=== PATIENT | female | born 1940 | race Caucasian/White ===

== ENCOUNTER 2019-02-07 12:15 | Inpatient (IN) | payer OTHER ==
[~2019-02-07] VITALS: Ht 162.6 cm; Wt 87.1 kg
[2019-02-07 12:15] VITALS: BP_SYST 131
[~2019-02-07 12:15] MED LIST: AMI200 PO; ASPI-1155 PO; COR25 PO; FURO-149 PO; LEVE1000 PO; LISI10TA5 PO; MULT PO; RIVA15TA PO; SIMV20TA2 PO
--- NOTE | 2019-02-07 12:15 | NUR ---
BROUGHT IN BY ACLS [facility] [address] AND PLACED IN BED #2 AND TRIAGED. REPORT GIVEN TO ORALIA
--- NOTE | 2019-02-07 12:45 | NUR ---
Patient presented to ER C/O UNWITNESSED GROUND LEVEL FALL. Patient brought in by BLS, Patient has bruising to left face, stitches to left brow, bruise left arm, bruise left leg from previous fall last week. Daughter of pt at bedside, state she foung patient on floor at home. Daughter of patient states pt fell 2 minutes prior to her arrival, jaceies GABRIELLA. Patient of "blood thinners" as of last week per daughter of pt.
--- NOTE | 2019-02-07 12:55 | NUR ---
Report to Rachele MURDOCK
[2019-02-07] MEDS ORDERED: MORPHINE 4 MG/ML INJ. SYRINGE IVP ONE (13:00)
--- NOTE | 2019-02-07 13:45 | NUR ---
ER Dr. Greenwood at bedside examining patient.
--- NOTE | 2019-02-07 13:50 | NUR ---
Patient to CT via gurney with radiology staff
--- NOTE | 2019-02-07 13:56 | NUR ---
Blanket Washer Note Was called by ED nursing. Patient's daughter wanted to see a social worker delinquency prevention. CRANE MANAGER went to ED within 10 minutes. Patient was being admitted and patient's daughter left. Will remain available.
--- NOTE | 2019-02-07 13:58 | NUR ---
SW at bedside per family request.
--- NOTE | 2019-02-07 14:20 | NUR ---
Patient to ER bed [address]
[2019-02-07 14:50] LABS: BASOPHILS # (AUTO) 0.1 K/uL (0.0-0.2); EOSINOPHILS # (AUTO) 0.1 K/uL (0.0-0.4); LYMPHOCYTES # (AUTO) 1.9 K/uL (1.0-5.5); LYMPHOCYTES % (AUTO) 14.2 % (20.5-51.5); RED BLOOD CELL COUNT(AUTO) 3.94 MIL/uL (4.2-6.2)
[2019-02-07 14:58] LABS: BASOPHILS % (AUTO) 0.6 % (0.0-2.0); EOSINOPHILS % (AUTO) 0.6 % (0.0-4.0); HEMATOCRIT 35.4 % (36-48); HEMOGLOBIN 11.7 g/dL (12.0-16.0); MEAN CORPUSCULAR HEMOGLOBIN 30 pg (27-31); MEAN CORPUSCULAR HGB CONC 33 % (32-36); MEAN CORPUSCULAR VOLUME 90 fL (79.0-98.0); MONOCYTES # (AUTO) 1.5 K/uL (0.0-1.0); MONOCYTES % (AUTO) 11.2 % (1.7-9.3); NEUTROPHILS # (AUTO) 9.6 K/uL (1.8-7.7); NEUTROPHILS % (AUTO) 73.4 % (40.0-70.0); PLATELET COUNT (AUTO) 296 K/uL (130-430); RED CELL DISTRIBUTION WIDTH 15.6 % (9.0-15.0); WHITE BLOOD COUNT (AUTO) 13.1 K/uL (4.8-10.8)
[2019-02-07 15:02] LABS: ANION GAP 22 (5-15); CALCIUM 9.8 mg/dL (8.4-11.0); CHLORIDE 100 mmol/L (98-107); CREATININE 1.08 mg/dL (0.55-1.30); GLUCOSE 120 mg/dL (70-99); POTASSIUM 4.9 mmol/L (3.5-5.1); SODIUM SERUM 134 mmol/L (136-145); UREA NITROGEN, BLOOD 17 mg/dL (8-21)
[2019-02-07 15:07] LABS: ALANINE AMINOTRANSFERASE 56 U/L (12-78); ALBUMIN 3.3 g/dL (3.4-4.8); ASPARTATE AMINOTRANSFERASE 106 U/L (10-37); TOTAL BILIRUBIN 1.3 mg/dL (0.0-1.0)
--- NOTE | 2019-02-07 15:30 | NUR ---
Patient sitting up in bed, awake.
--- NOTE | 2019-02-07 16:43 | NUR ---
Patient sleeping in [facility].
[2019-02-07] MEDS ORDERED: COR12.5 PO (18:17)
--- NOTE | 2019-02-07 18:17 | NUR ---
Medication reconciliation completed with information provided by Patient. Any prior medication reconciliation on file was reviewed and corrected.
--- NOTE | 2019-02-07 18:35 | NUR ---
Patient will be admitted to care of DR. OLGUIN. Admitted to TELE unit. Will go to room 105A. Belongings list completed. Summary report printed. Report given at bedside to [employer] dial mounter to tele 105a via ACLS protocol. Licensed nurse present. IV present no signs or symptoms of infiltration.
--- NOTE | 2019-02-07 18:35 | NUR ---
ADMISSION NOTE Received patient from ER via sheree, received report from Sveta MURDOCK. Patient admitted with diagnosis of CVA. Patient oriented to hospital routine, call light, toileting and safety-patient verbalized understanding.
[2019-02-07 18:54] VITALS: BP_SYST 123
--- NOTE | 2019-02-07 19:07 | NUR ---
CONSULTATION PAGED/CALLED Reason for Consultation: CVA Person Who was Notified: SARAH Consulting Physician: GIRSEL RICHMOND Woodworking Bench Carpenter Specialty: NEURO Ordering Physician: DR. OLGUIN
--- NOTE | 2019-02-07 19:43 | NUR ---
PAGED PAGING SHARIF NAIR FOR ORDERS, SPOKE WITH MILLI
--- NOTE | 2019-02-07 19:45 | NUR ---
FAMILY CALLED : PTS DAUGHTER JACOB BRADFORD CALLED TO VERIFY THE HOME MEDICATION , NOT ATTENDED THE CALL ,LEFT MESSAGE .
--- NOTE | 2019-02-07 19:50 | NUR ---
INITIAL NOTES: PT IS ALERT AND ORIENTED X 3, DENIED ANY CHEST PAIN OR SOB , VITALS ARE STABLE ; ASSESSMENT DONE ; NOTICED LEFT EYEBROW WITH 6 STITCHES INTACT ,CLEAN ,AND DRY NO DRAINAGE , OPEN TO AIR , LEFT SIDE OF THE FACE WITH PURPLE / RED DISCOLORATION AND SMALL DRY SCAB VANI THE CHEEK BONE ; NECK NOTED WITH BRUISES , LEFT HAND ,AC , R ARM , RIGHT KNEE AND LOWE R LEG NOTICED WITH PURPLE AND RED DISCOLORATION , RIGHT KNEE AND RIGHT ARM NOTICED WITH SMALL DRY SCABS , NO DRAINAGE NOTICED FROM ANY OF THESE AREAS , PT HAS PAIN WHILE MOVING HER BODY AND ARMS , WILL NOTIFY MD ; IV TO THE R AC 22 G, NO S/S OF ANY INFILTRATION NOTED ; PTS MARTY LEGS WITH WEAKNESS BUT NO C/O NUMBNESS OR TINGLING , ABLE TO ABDUCT AND ADDUCT ALL EXTREMITIES WELL .STRENGTH IS EQUAL IN BOTH SIDE , WEAKNESS DUE TO FALL AND PAIN , NO FACIAL DROOPING NOTICED AT THIS TIME ; BED IN LOW AND LOCK POSITION , CALL MCGUIRE IN REACH , ENCOURAGED PT TO CALL FOR ANY HELP ; WILL CONTINUE TO MONITOR PT . Addendum: 02/08/19 at 0045 by Nighat Hicks RN PICTURES ARE TAKEN .
--- NOTE | 2019-02-07 19:56 | NUR ---
MD CALLED BACK : DR OLGUIN CALLED BACK , REQUESTED FOR DIET ORDER , MD ORDERED NPO ,SWALLOW EVEAL IN THE MORNING AND D5NS AT 70 ML/HR . MD STATED HE WILL DO THE MED REC , BEFORE ASKING PAIN MEDICATION / TYLENOL ( PER PT SHE TAKES TYLENOL EXTRA STRENGTH AT NIGHT ) , MD HANG UP THE PHONE , WILL CALL MD AGAIN
--- NOTE | 2019-02-07 19:58 | NUR ---
PAGED PAGED DR. OLGUIN FOR ORDERS, SPOKE WITH MILLI
--- NOTE | 2019-02-07 20:08 | NUR ---
CALLED BACK: DR OLGUIN CALLED BACK INFORMED THAT PT IS ASKING FOR TYLENOL EXTRA STRENGTH , ORDERED TYLENOL 650 MG PO Q6HRS PRN FOR MILD PAIN AND FEVER , ALSO INFORMED THAT ORDERED D5 NS AT 70 CC/HR AND PT HAS CARDIOMEGALY , MD ORDERED TO CONTINUE THE SAME ORDER. CHANGED DIET ORDER TO NPO EXCEPT MEDS . NO OTHER PAIN MEDICATION ORDERED AT THIS TIME . STATED HE WILL DO THE MED REC . Addendum: 02/07/19 at 2014 by Nighat Hicks RN MADE AWARE THAT PT IS ON AMIODARONE AND COREG
[2019-02-07] MEDS ORDERED: AMIODARONE HCL 200 MG TABLET PO SCH (20:30)
[2019-02-07] MEDS: D5NS 1,000 ML IV SCH (20:47)
[2019-02-07 20:49] VITALS: BP_SYST 141
--- NOTE | 2019-02-07 20:50 | NUR ---
MEDICATION: DUE MEDS GIVEN PER ORDER , EDUCATED PT ON COREG ; NO QUESTIONS AT THIS TIME ; ALL NEEDS ATTENDED ; WILL CONTINUE TO MONITOR PT . Addendum: 02/08/19 at 0221 by Nighat Hicks RN SWALLOW CHECK : PROVIDED 1/2 SPOON OF APPLE SAUCE PT IS ABLE TO SWALLOW WELL , NO S/S OF ANY ASPIRATION , PROVIDED FEW MORE SPOONS , PT SWALLOWED IT WELL WITHOUT ANY DIFFICULTY . DUE MEDS GIVEN PER ORDER WITH WATER , PT SWALLOWED WELL . NO S/S OF ANY ASPIRATION NOTED AT THIS TIME .
[2019-02-07] MEDS ORDERED: CARVEDILOL 12.5 MG TABLET (COREG) PO SCH (21:00)
[2019-02-07] MEDS: ACETAMINOPHEN 325 MG TABLET PO PRN (22:36)
--- NOTE | 2019-02-07 22:36 | NUR ---
PAIN; PT C/O PAIN WHILE MOVING , TYLENOL PROVIDED PER ORDER , PROVIDED BED [place] FOR THE PT , PT IS ONLY ABLE TO VOID FEW DROPS . WILL TRY AGAIN LATER .
[2019-02-08] VITALS (8 sets, daily range): BP systolic 109–145
--- NOTE | 2019-02-08 00:05 | NUR ---
RN NOTES: PT IS UNABLE TO VOID AGAIN IN A BEDPAN , WITH THE ASSIST OF ANOTHER 2 RNS ASSISTED PT TO BSC , PT IS ABLE TO VOID WELL , MARY COLOR URINE . PT CLEANED ; ASSISTED PT BACK TO BED ; WHILE MOVING PT C/O PAIN , TYLENOL GIVEN EARLIER PER MD ORDER . WILL WAIT FOR FEW MIN , IF NOT SUBSIDED WILL CALL MD AGAIN FOR STRONGER PAIN MEDICATION .
--- NOTE | 2019-02-08 01:03 | NUR ---
RN ROUNDS: PT IS SLEEPING WITH EYES CLOSED , NOT IN ANY ACUTE DISTRESS;RESPIRATION IS EVEN AND NON LABORED , WILL CONTINUE TO MONITOR PT .
--- NOTE | 2019-02-08 03:00 | NUR ---
RN NOTES: PT IS SLEEPING , COMFORTABLE , NO S/S OF ANY DISTRESS NOTED ; RESPIRATION IS EVEN AND NON LABORED ; WILL CONTINUE TO MONITOR PT .
--- NOTE | 2019-02-08 04:20 | NUR ---
MRSA COLLECTED: PT WAS ADMITTED AT [facility] LAST WEEK , PT IS AWAKE , MRSA COLLECTED AND SENT TO LAB , PT DENIED ANY PAIN AT THIS TIME .
--- NOTE | 2019-02-08 05:19 | NUR ---
CONSULTATION PAGED/CALLED Reason for Consultation: SWALLOW EVAL Person Who was Notified: CHASTITY ([phone]) Ordering Physician: DR. OLGUIN
[2019-02-08] MEDS: ACETAMINOPHEN 325 MG TABLET PO PRN ×2 (05:41→13:49)
--- NOTE | 2019-02-08 05:45 | NUR ---
PAIN: PT C/O PAIN TO HER LEFT SHOULDER NECK AND HEADACHE , MEDICATED PT WITH TYLENOL PER DR OLGUIN ORDERED . WILL NOTIFY MD IF THIS PAIN MEDICATION DIDNT HELP .PT SWALLOWED MEDICATION WELL . NO COUGHING , NO S/S OF ANY ASPIRATION NOTED .
--- NOTE | 2019-02-08 06:03 | NUR ---
PAGED PAGING DR. OLGUIN REGARDING ORDERS, SPOKE WITH GLORY
--- NOTE | 2019-02-08 06:03 | NUR ---
RN NOTES: ASSISTED PT TO BSC , PT VOIDED ONLY 50 ML ; BLADDER SCAN DONE AND NOTICED 500 ML POST VOID ; WILL NOTIFY MD .
--- NOTE | 2019-02-08 06:11 | NUR ---
CALLED BACK; DR OLGUIN CALLED BACK , MD NOTIFIED OF POST VOID URINE AMOUNT VIA BLADDER SCAN OF 500 ML ; ALSO NOTIFIED MD THAT PT VOIDED ONLY 150 ML THE WHOLE SHIFT ; MD ORDERED TO INSERT MAY CATHETER .
--- NOTE | 2019-02-08 06:20 | NUR ---
MAY CATH: #[id number] May catheter with 10cc bulb inserted with use of sterile technique. Bulb inflated with 10 cc sterile water. Immediate return of 380cc of mild liza color urine noted. Bedside drainage bag placed below level of bladder. Urine sample collected and sent to lab . Pt tolerated procedure well. AZAM Ocampo , assisted with procedure .
--- NOTE | 2019-02-08 07:00 | NUR ---
CLOSING NOTES; PT IS COMFORTABLE , SLEEPING , RESPIRATION IS EVEN AND NON LABORED ; MAY IS DRAINING WELL TO GRAVITY ; IV FLUID IS INFUSING WELL , NO S/S OF ANY INFILTRATION NOTED ; ALL NEEDS MET ; WILL CONTINUE TO MONITOR AND WILL ENDORSE TO NEXT SHIFT NURSE .
[2019-02-08 07:08] LABS: BILIRUBIN,URINE NEGATIVE (NEGATIVE); BLOOD, URINE NEGATIVE (NEGATIVE); CLARITY/URINE CLEAR (CLEAR); COLOR,URINE YELLOW (YELLOW); GLUCOSE,URINE NEGATIVE (NEGATIVE); KETONES,URINE TRACE (NEGATIVE); LEUKOCYTE ESTERASE ,URINE NEGATIVE (NEGATIVE); NITRITE, URINE NEGATIVE (NEGATIVE); PROTEIN URINE NEGATIVE (NEGATIVE)
--- NOTE | 2019-02-08 08:00 | NUR ---
ASSUMPTION OF CARE: RECEIVED PT A/A/OX4, DX:INADEQUATE PERFUSION, R/T CVA, VSS, NO C/O PAIN OR DISCOMFORT, ORIENTED X 4, TO NAME, TIME, PLACE AND EVENT, BREATH SOUNDS ARE CLEAR, BREATHING UNLABORED, IV SITE INTACT, PATENT, NO REDNESS OR SWELLING, MULTIPLE BRUISING OVER LARGE SURFACE AREA OF THE BODY, LACERATION NOTED TO LEFT EYE LID WITH SUTURES DRY AND INTACT, ORIENTED TO UNIT, CALL LIGHT PLACED WITHIN REACH, SZ PADDED PLACED ON SIDE RAILS, ROOM CLOSE TO NURSES STATION, WILL CON'T WITH POC.
[2019-02-08] MEDS: SIMVASTATIN 20 MG TABLET PO SCH (08:21)
[2019-02-08] MEDS: CARVEDILOL 12.5 MG TABLET (COREG) PO SCH ×2 (08:21→17:43)
[2019-02-08] MEDS: AMIODARONE HCL 200 MG TABLET PO SCH ×2 (08:21→20:28)
--- NOTE | 2019-02-08 08:30 | NUR ---
VISIT: AT BEDSIDE FOR ASSESSMENT OF PT, NEW ORDERS GIVEN, WILL CON'T TO MONITOR AND ASSESS.
--- NOTE | 2019-02-08 08:59 | NUR ---
CONSULTATION PAGED/CALLED Reason for Consultation: ICH Person Who was Notified: SPOKE TO OLIVIA FROM OFFICE. Consulting Physician: Nib Inspector Specialty: CARDIO Ordering Physician:
--- NOTE | 2019-02-08 09:00 | NUR ---
REFLECTOR DRILLER AND DEBURRER: MORNING MEDS GIVEN, PER ORDERED BY Murali, TOLERATED WELL, WILL CON'T TO MONITOR AND ASSESS.
--- NOTE | 2019-02-08 09:23 | NUR ---
CONSULTATION PAGED/CALLED Reason for Consultation: CHEST PAIN Person Who was Notified: SPOKE TO DIALLO FROM OFFICE. Consulting Physician: Morphologist Specialty: CARDIO Ordering Physician:
[2019-02-08 09:28] LABS: ANION GAP 5 (5-15); CALCIUM 8.8 mg/dL (8.4-11.0); CHLORIDE 101 mmol/L (98-107); CREATININE 0.93 mg/dL (0.55-1.30); GLUCOSE 121 mg/dL (70-99); SODIUM SERUM 132 mmol/L (136-145); UREA NITROGEN, BLOOD 19 mg/dL (8-21)
--- NOTE | 2019-02-08 09:51 | NUR ---
Nutrition Update Anup Scale 17 noted. Pt admitted for CVA. Diet: NPO BMI: 33 kg/m2 RD to follow per nutrition care standards.
--- NOTE | 2019-02-08 10:25 | NUR ---
Motion Picture Set Worker: Referral to see pt. Elizabeth is requesting social services technician. CHAPERON met with pt. who was alert and orientated. Pt. was able to participate in this interview. She is hard of hearing so it was better to speak to her on her left side. Pt. stated she was comfortable and did not need anything. Pt was in the middle of trying to get her PCP, Dr. Street's phone number from her address book because she stated she had an apt. today at 2 or 3. CHAPERON offered to call for pt. CHAPERON asked pt. if she has ever had hearing aids. Pt. stated she has a follow up apt. Pt. stated she just moved into her apt. 4 months ago and has probably done too much unpacking. She stated she fell and went to [facility]. Upon discharge she came back home and when she was going to sit in her chair, she lost strenght in her legs and fell. She was unable to get up. Her neighbor came to check on her and found her on the floor. Pt. does not know how long she was there and stated , "Maybe 15 minutes on the floor". Pt. stated her goal once D/C was to return to her home where she lives alone. CHAPERON stated her concern was for pt. and falling and no one helping her. Pt. stated is was ok for CHAPERON to speak to her daughter once she comes for a visit today. Rn. Ralph will call CHAPERON once daughter arrives. Rn. Ralhp asked pt. if she has ever had seizures. Pt. stated she had a seizure in the past. Rn placed padding around the bed. CHAPERON called Dr. Street's office and spoke to Tamiko who informed CHAPERON that pts.' apt. is actually scheduled for . They will keep the apt. in the event the pt. can make this. CHAPERON thanked Tamiko and will communicate this to the pt. and daughter. Addendum: 02/08/19 at 1708 by Aisha Barker CHAPERON Motion Picture Set Worker follow up CHAPERON did not get any notification that daughter had come to visit pt. CHAPERON called but had to leave a message for daughter letting her know CHAPERON had met with her mom. CHAPERON also stated there is a administrator social welfare property preservation specialist on sat and a case mngr. on Sat. should daughter have any questions. CHAPERON also stated she was able to cancel pt. with her PCP as requested.
[2019-02-08] MEDS ORDERED: APIX5TAB4 PO ×2 (13:35→13:37)
[2019-02-08] MEDS ORDERED: AMI200 PO (13:36)
[2019-02-08] MEDS ORDERED: AMI200 (13:37)
--- NOTE | 2019-02-08 14:45 | NUR ---
CT SCAN: PT OFF UNIT TO RADIOLOGY FOR ORDERED CT HEAD.
--- NOTE | 2019-02-08 15:49 | NUR ---
S.T. SWALLOW EVAL SWALLOW EVAL COMPLETED. PT PRESENTS W/ FUNCTIONAL OROPHARYNGEAL SWALLOW W/ NO S/S OF ASPIRATION. REC: MECH SOFT CHOPPED DIET. THIN LIQUIDS OK. NURSE ORALIA NOTIFIED. G8996 CI G8997 CI G8998 CI NOMS LEVEL 6
[2019-02-08] MEDS: D5NS 1,000 ML IV SCH (17:40)
--- NOTE | 2019-02-08 19:40 | NUR ---
OPENING NOTES Received patient awake and oriented, no signs of acute respiratory distress observed. Patient has IV Right hand 22g, patent, dressings c/d/i. Patient states that she has no pain at this time. Patient oriented to use of call light and bed alarm. Nagel catheter draining per gravity, no kinks noted. Call light within reach, bed alarm on, and bed at lowest position. Will continue to monitor.
--- NOTE | 2019-02-08 22:20 | NUR ---
Patient resting in bed, seizure precautions in place, no acute respiratory distress observed. Perineal care, bed bath and armstrong catheter care provided. Safety precautions in place. Will continue to monitor.
--- NOTE | 2019-02-09 00:01 | NUR ---
Patient resting in bed, no acute respiratory distress observed. Seizure precautions and safety precautions in place. Will continue to monitor.
[2019-02-09] MEDS: D5NS 1,000 ML IV SCH (01:28)
[2019-02-09] MEDS: ACETAMINOPHEN 325 MG TABLET PO PRN ×2 (01:36→08:13)
--- NOTE | 2019-02-09 02:07 | NUR ---
Pain medication administered PO, patient tolerated with no s/s of difficulty swallowing. No acute respiratory distress observed. IV fluids changed, IV dressings c/d/i. No kinks in armstrogn catheter, draining to gravity. Safety precautions in place. Will continue to monitor and assess for pain.
--- NOTE | 2019-02-09 04:05 | NUR ---
Reoriented patient to the room, fixed up her gown and sheets, and repositioned patient. No acute respiratory distress observed. Nagel catheter is draining with gravity, clear liza urine noted. No kinks noted. Bed alarm on, bed at lowest position, and call light within reach. Will continue to monitor.
--- NOTE | 2019-02-09 06:18 | NUR ---
CLOSING NOTES Patient is resting in bed, no acute respiratory distress observed. IV on Right hand 22g, running D5NS @ 70 ml/hr per MD order, patent, dressings c/d/i. IV on Right AC 22g SL, patent, dressings c/d/i. Nagel catheter draining to gravity, no kinks noted. Seizure precautions in place. Call light within reach, bed alarm on, and bed at lowest position. All needs met throughout shift. Will endorse care to oncoming shift.
[2019-02-09 07:50] VITALS: BP_SYST 133
--- NOTE | 2019-02-09 08:00 | NUR ---
Note Pt sitting up in bed eating her breakfast. Tele unit attached and intact at this time. IV in right AC intact and patent at this time. IV in right hand intact and patent infusing IVF's well. No SOB/resp distress or pain/discomfort noted at this time. No needs noted at this time. Pt has padded side rails at this time. Call light within reach.
[2019-02-09] MEDS: AMIODARONE HCL 200 MG TABLET PO SCH ×2 (08:12→20:55)
[2019-02-09] MEDS: SIMVASTATIN 20 MG TABLET PO SCH (08:13)
[2019-02-09] MEDS: CARVEDILOL 12.5 MG TABLET (COREG) PO SCH ×2 (08:13→17:24)
[2019-02-09] MEDS: LISINOPRIL 5 MG TABLET PO SCH (08:13)
--- NOTE | 2019-02-09 10:10 | NUR ---
Note Pt was given hygiene care for incontinent bowel movement. Pt has Nagel catheter all shift for retention of urine. Pt is having EEG study at bedside at this time. Call light within reach. Pt has been next to nurses' station all shift for close observation and for needs/care.
[2019-02-09 11:09] VITALS: BP_SYST 123
[2019-02-09 12:00] VITALS: BP_SYST 117
[2019-02-09] MEDS ORDERED: levETIRAcetam 500 MG TABLET PO ONE (12:00)
[2019-02-09 13:03] LABS: BASOPHILS # (AUTO) 0.1 K/uL (0.0-0.2); BASOPHILS % (AUTO) 1.1 % (0.0-2.0); EOSINOPHILS # (AUTO) 0.3 K/uL (0.0-0.4); EOSINOPHILS % (AUTO) 2.7 % (0.0-4.0); HEMATOCRIT 30.5 % (36-48); HEMOGLOBIN 10.2 g/dL (12.0-16.0); LYMPHOCYTES # (AUTO) 1.4 K/uL (1.0-5.5); LYMPHOCYTES % (AUTO) 13.8 % (20.5-51.5); MEAN CORPUSCULAR HEMOGLOBIN 30 pg (27-31); MEAN CORPUSCULAR HGB CONC 34 % (32-36); MEAN CORPUSCULAR VOLUME 89 fL (79.0-98.0); MONOCYTES # (AUTO) 1.2 K/uL (0.0-1.0); MONOCYTES % (AUTO) 11.6 % (1.7-9.3); NEUTROPHILS # (AUTO) 7.2 K/uL (1.8-7.7); NEUTROPHILS % (AUTO) 70.8 % (40.0-70.0); PLATELET COUNT (AUTO) 271 K/uL (130-430); RED BLOOD CELL COUNT(AUTO) 3.42 MIL/uL (4.2-6.2); RED CELL DISTRIBUTION WIDTH 15.8 % (9.0-15.0); WHITE BLOOD COUNT (AUTO) 10.1 K/uL (4.8-10.8)
[2019-02-09 13:14] LABS: ANION GAP 6 (5-15); CALCIUM 8.8 mg/dL (8.4-11.0); CHLORIDE 100 mmol/L (98-107); CREATININE 0.83 mg/dL (0.55-1.30); GLUCOSE 118 mg/dL (70-99); POTASSIUM 4.2 mmol/L (3.5-5.1); SODIUM SERUM 132 mmol/L (136-145); UREA NITROGEN, BLOOD 18 mg/dL (8-21)
[2019-02-09 13:16] LABS: INR 1.2 (0.8-1.2); PROTHROMBIN TIME 11.6 SECS (9.5-12.5)
[2019-02-09 13:20] LABS: ALANINE AMINOTRANSFERASE 284 U/L (12-78); ALBUMIN 2.5 g/dL (3.4-4.8); ASPARTATE AMINOTRANSFERASE 81 U/L (10-37); TOTAL BILIRUBIN 0.6 mg/dL (0.0-1.0)
--- NOTE | 2019-02-09 13:40 | NUR ---
Note Pt was seen and assessed at bedside by Dr. Vizcarra at noon. Questions/concerns were answered at this time. Orders written and carried out. Pt resting in bed after finishing her lunch at this time. No needs noted. Call light within reach. Tele unit and Nagel catheter intact and attached at this time.
[2019-02-09 15:23] VITALS: BP_SYST 125
--- NOTE | 2019-02-09 16:40 | NUR ---
NOTE Dr Anne on the floor assessing pt at bedside at this time. Pt resting in bed with padded side rails. Call light within reach.
--- NOTE | 2019-02-09 18:30 | NUR ---
Note Pt assisted in sitting up in bed to eat her dinner. IV in right hand and right AC intact and patent - both IV's are saline locked at this time. No SOB/resp distress or severe pain/discomfort noted at this time. Incision with stitches above left eyebrow intact - no bleeding/drainage/odor noted all shift. Tele unit attached and intact all shift. Pt was checked on q1' and PRN all shift for needs and care. Nagel catheter intact and draining well all shift. Call light within reach. No needs noted at this time. Pt next to nurses' station all shift for close observation for needs and care.
--- NOTE | 2019-02-09 19:45 | NUR ---
OPENING NOTES Received patient resting, alert. No acute respiratory distress observed. Nagel catheter draining to gravity, no kinks noted. IV R hand 22g, patent, dressings c/d/i. Call light within reach, bed alarm on, and bed at lowest position. Will continue to monitor
[2019-02-09 20:00] VITALS: BP_SYST 91
[2019-02-09] MEDS: levETIRAcetam 500 MG TABLET PO SCH (20:54)
--- NOTE | 2019-02-09 22:10 | NUR ---
Patient is resting in bed. No acute respiratory distress observed. Seizure and safety precautions in place. Will continue to monitor.
--- NOTE | 2019-02-09 22:45 | NUR ---
IV dc'd IV dc'd R.AC catheter tip intact. No active bleeding noted. Pt tolerated well.
--- NOTE | 2019-02-10 00:06 | NUR ---
Patient is resting, eyes closed. Rise and fall of chest noted, no acute respiratory distress observed. Seizure and safety precautions in place. Will continue to monitor.
[2019-02-10 01:35] VITALS: BP_SYST 135
--- NOTE | 2019-02-10 02:10 | NUR ---
Patient is resting, eyes closed. No acute respiratory distress observed. Nagel catheter is draining to gravity, no kinks noted. Safety and seizure precautions in place. Will continue to monitor.
--- NOTE | 2019-02-10 04:21 | NUR ---
Patient is asleep, eyes closed. No s/s of acute respiratory distress observed. Will continue to monitor.
--- NOTE | 2019-02-10 07:00 | NUR ---
CLOSING NOTES Patient is asleep, eyes closed. No s/s of acute respiratory distress observed. Nagel catheter draining by gravity, no kinks noted. IV at R hand 22g SL, patent, dressings c/d/i. Patient repositioned. Seizure precautions in place. Bed alarm on, bed at lowest position and call light within reach. All needs met throughout shift. Will endorse care to oncoming shift.
[2019-02-10 07:43] VITALS: BP_SYST 115
--- NOTE | 2019-02-10 08:00 | NUR ---
Note Pt was assisted in sitting position to eat her breakfast. Tele unit attached and intact at this time. Nagel catheter intact and draining. No SOB/resp distress or chest pain/discomfort noted at this time. IV in right hand intact and patent at this time. No needs noted at this time. Call light within reach.
[2019-02-10] MEDS: SIMVASTATIN 20 MG TABLET PO SCH (08:48)
[2019-02-10] MEDS: LISINOPRIL 5 MG TABLET PO SCH (08:49)
[2019-02-10] MEDS: AMIODARONE HCL 200 MG TABLET PO SCH ×2 (08:49→21:00)
[2019-02-10] MEDS: levETIRAcetam 500 MG TABLET PO SCH ×2 (08:49→21:13)
[2019-02-10] MEDS: CARVEDILOL 12.5 MG TABLET (COREG) PO SCH ×2 (08:49→17:04)
--- NOTE | 2019-02-10 11:10 | NUR ---
Note Pt resting in bed. No needs noted at this time. Call light within reach. Pt stable.
[2019-02-10 11:17] VITALS: BP_SYST 106
--- NOTE | 2019-02-10 11:50 | NUR ---
Note Dr Alvares at pt's bedside assessing pt and writing orders at this time.
--- NOTE | 2019-02-10 14:40 | NUR ---
Note Pt resting in bed at this time. Pt went down to CT dept via bed at 1255pm and returned to room at [address] head/brain without contrast. Pt's appetite for lunch was poor. No needs noted at this time. Call light within reach.
[2019-02-10 15:23] VITALS: BP_SYST 117
[2019-02-10] MEDS: ACETAMINOPHEN 325 MG TABLET PO PRN ×2 (17:04→23:24)
--- NOTE | 2019-02-10 18:40 | NUR ---
Note Pt resting in bed. No SOB/resp distress or chest pain/discomfort noted at this time. Tele unit attached and intact at this time. Pt was checked on q1' and PRN all shift for needs and care. IV in right hand intact and patent at this time. No needs noted. Nagel catheter intact and draining. Call light within reach. Pt next to nurses' station for close observation for needs and care.
--- NOTE | 2019-02-10 19:35 | NUR ---
OPENING NOTES Patient is resting in bed, alert, no acute respiratory distress observed. Patient states that she had cold sweats earlier. Temperature taken, and temperature was within normal limits. IV R hand 22 g, Saline lock, patent, dressings c/d/i. Oriented patient to the room and plan of care. Bed alarm on, bed at lowest position, and call light within reach. Will continue to monitor.
[2019-02-10 20:00] VITALS: BP_SYST 92
[2019-02-10 21:58] VITALS: BP_SYST 92
--- NOTE | 2019-02-10 22:00 | NUR ---
AMIODARONE held due to low blood pressure. Documented Vital signs. Patient in bed, alert and verbalizes needs. resting comfortably. Nagel catheter draining by gravity, bag not touching the floor, no kinks, clear liza urine. Seizure and safety precautions in place. Will continue to monitor.
[2019-02-11] VITALS: BP_SYST 97
--- NOTE | 2019-02-11 00:15 | NUR ---
Patient is awake, no signs of respiratory distress observed. Tylenol administered for pain. Tolerated well. NPO order in place for abdominal US. Seizure pads in place, safety precautions in place. Will continue to monitor.
--- NOTE | 2019-02-11 02:10 | NUR ---
Patient is resting, eyes closed. Rise and fall of chest observed. Safety and seizure precautions in place. Will continue to monitor.
--- NOTE | 2019-02-11 04:20 | NUR ---
Patient is resting, asleep. No acute respiratory distress observed. Nagel catheter draining by gravity, no kinks, clear liza urine. Seizure and safety precautions in place. Will continue to monitor.
--- NOTE | 2019-02-11 06:16 | NUR ---
CLOSING NOTES Patient resting in bed. No signs of acute respiratory distress observed. Nagel catheter draining per gravity, clear,liza urine, no kinks, bag off of the floor. IV site, Right Hand 22 g, Saline lock, dressings c/d/i. Seizure precautions in place. Call light within reach, bed alarm on, and bed at lowest position. All needs met throughout shift. Will endorse care to oncoming shift.
--- NOTE | 2019-02-11 07:09 | NUR ---
Nutrition Update Anup Scale 15 noted. Pt admitted for Cerebrovascular Accident Diet: Mechanical Soft BMI: 33 kg/m2 RD to follow per nutrition care standards.
[2019-02-11 07:31] LABS: ALANINE AMINOTRANSFERASE 146 U/L (12-78); ALBUMIN 2.4 g/dL (3.4-4.8); ANION GAP 4 (5-15); ASPARTATE AMINOTRANSFERASE 18 U/L (10-37); CALCIUM 9.3 mg/dL (8.4-11.0); CHLORIDE 96 mmol/L (98-107); CREATININE 1.04 mg/dL (0.55-1.30); GLUCOSE 89 mg/dL (70-99); POTASSIUM 4.2 mmol/L (3.5-5.1); SODIUM SERUM 127 mmol/L (136-145); TOTAL BILIRUBIN 0.8 mg/dL (0.0-1.0); UREA NITROGEN, BLOOD 22 mg/dL (8-21)
--- NOTE | 2019-02-11 07:31 | NUR ---
OPENING NOTE Patient resting in the bed with eyes closed. No acute distress. Skin warm and dry to touch. SL intact to right hand, no redness, no swelling, patent. F/C intact, drain gravity with yellow urine. Safety measure maintained. Bed locked in low position, side rails up, bed alarm on. Call light within reached. Will continue to monitor.
--- NOTE | 2019-02-11 07:40 | NUR ---
Initial Note-Pt resting in bed. Breathing even and un-labored. Pt receiving breathing treatment for RT. Side rails padded, room close to nursing station. Bed in low position, bed alarm on, call light within reach. Addendum: 02/11/19 at 0756 by Jesusita Hoover RN DESREGARD ABOVE NOTE, WRONG PATIENT.
[2019-02-11 07:58] LABS: BASOPHILS # (AUTO) 0.1 K/uL (0.0-0.2); BASOPHILS % (AUTO) 0.6 % (0.0-2.0); EOSINOPHILS # (AUTO) 0.3 K/uL (0.0-0.4); EOSINOPHILS % (AUTO) 2.6 % (0.0-4.0); HEMATOCRIT 30.1 % (36-48); HEMOGLOBIN 10.2 g/dL (12.0-16.0); LYMPHOCYTES # (AUTO) 1.4 K/uL (1.0-5.5); LYMPHOCYTES % (AUTO) 11.8 % (20.5-51.5); MEAN CORPUSCULAR HEMOGLOBIN 30 pg (27-31); MEAN CORPUSCULAR HGB CONC 34 % (32-36); MEAN CORPUSCULAR VOLUME 88 fL (79.0-98.0); MONOCYTES # (AUTO) 1.3 K/uL (0.0-1.0); MONOCYTES % (AUTO) 10.5 % (1.7-9.3); NEUTROPHILS % (AUTO) 74.5 % (40.0-70.0); PLATELET COUNT (AUTO) 292 K/uL (130-430); RED BLOOD CELL COUNT(AUTO) 3.41 MIL/uL (4.2-6.2); RED CELL DISTRIBUTION WIDTH 15.6 % (9.0-15.0)
[2019-02-11 08:00] VITALS: BP_SYST 109
[2019-02-11 08:02] LABS: WHITE BLOOD COUNT (AUTO) 12.1 K/uL (4.8-10.8)
--- NOTE | 2019-02-11 09:50 | NUR ---
SEEN AND EXAMINED BY MANISHA ARRIETA Reported to Dr. Rubi, patient's Nd=[id number] this morning.
[2019-02-11] MEDS: levETIRAcetam 500 MG TABLET PO SCH (10:01)
[2019-02-11] MEDS: LISINOPRIL 5 MG TABLET PO SCH (10:01)
[2019-02-11] MEDS: SIMVASTATIN 20 MG TABLET PO SCH (10:01)
[2019-02-11] MEDS: AMIODARONE HCL 200 MG TABLET PO SCH (10:02)
[2019-02-11] MEDS: CARVEDILOL 12.5 MG TABLET (COREG) PO SCH (10:02)
--- NOTE | 2019-02-11 10:19 | NUR ---
US OF ABDOMEN DOING AT BEDSIDE AT THIS TIME.
--- NOTE | 2019-02-11 10:35 | NUR ---
DC PLANNING: CM SPOKE WITH PATIENT'S SON (ADRIANA) @ AND DISCUSSED DC PLANNING TO SNF. PATIENT'S SON STATED HE HAD SPOKE WITH DR. OLGUIN AND DISCUSSED SNF PLACEMENT. PT'S SON ALSO AGREED TO [facility] RECOMMENDED BY . CM/DCP WILL FAX INQUIRE TO SNF.
--- NOTE | 2019-02-11 10:43 | NUR ---
MAY CATHETER DISCOUNTED Removed May catheter as ordered, procedure tolerated well. Patient denied of pain/discomfort. No acute distress noted. Safety measure maintained. Call light within touch. Bed locked in low position, padded side rails up, bed alarm on. Continue to monitor.
[2019-02-11 12:00] VITALS: BP_SYST 112
--- NOTE | 2019-02-11 12:15 | NUR ---
Discharge Planning: DCP faxed pt referral to [facility] (f [phone] p [phone]) DCP to follow up. Addendum: 02/11/19 at 1309 by Mima Marcelino DP [facility] (f [phone] p [phone]) accepted pt RM 21A, transportation arranged [facility] ([phone]) 4:00pm P/U. Nurse made aware patient packet taken to nurse station.
--- NOTE | 2019-02-11 12:55 | NUR ---
ROUND Patient resting in the bed. No acute distress. Respiration even and unlabored. Safety measure maintained. Call light within reached. Bed locked in low position, side rails up, bed alarm on. Continue to monitor.
--- NOTE | 2019-02-11 13:00 | NUR ---
Pick Remover: follow up to make contact with daughter. CERTIFIED GENETIC COUNSELOR was finally able to speak to daughter, Flory Paniagua who was friendly and kind. She was stating her mom is being dishcarged. Pt will be going to [facility] however daughter was unsure as she did not know the rating of facility and had not had a chance to speak to anyone. Daughter stated she was coming to [facility] today. CERTIFIED GENETIC COUNSELOR can give her a [facility] brochure. CERTIFIED GENETIC COUNSELOR also inquired about a durable power of atty. Daughter stated her mom did not have one. Daughter will call CERTIFIED GENETIC COUNSELOR when she arrives at [facility] today at 4 or 4:30pm. CERTIFIED GENETIC COUNSELOR spoke to D/C environmental planner who stated pt. is leaving today and will be in bed 21A. CERTIFIED GENETIC COUNSELOR called family to notify that pt. will be leaving today at 4pm and CERTIFIED GENETIC COUNSELOR will leave paperwork with pt. in her room. CERTIFIED GENETIC COUNSELOR will remain available as needed.
--- NOTE | 2019-02-11 14:00 | NUR ---
TURNED AND REPOSITIONED PATIENT Patient no acute distress. Turned and repositioned at this time, tolerated well. No c/o pain. Skin warm and dry to touch. Patient voided after D/C Nagel cath. Good pericare provided. Safety measure maintained. Call light within reached. Bed locked in low position, padded side rails up, bed alarm on. Continue to monitor.
[2019-02-11 15:08] VITALS: BP_SYST 100
[2019-02-11 15:10] VITALS: BP_SYST 100
--- NOTE | 2019-02-11 15:12 | NUR ---
REPORTED GIVEN TO MATHIEU DE JESUS IN [place]
--- NOTE | 2019-02-11 16:25 | NUR ---
ROUND Patient resting in the bed. No acute distress. Respiration even and unlabored. Safety measure maintained. Call light within reached. Bed locked in low position, side rails up, bed alarm on. Continue to monitor and waited ambulance to milk pickup driver the patient.
--- NOTE | 2019-02-11 18:30 | NUR ---
PT TRANSFERRED Report given to MATHIEU Macias at 1512. Transfer packet with Transfer Orders and Medication Reconciliation form given to EMT with report. Exitcare provided. [facility] ID band removed, replaced with ID band with pt's name and . IV catheter removed, intact and dressing applied, no active bleeding. All belongings sent with patient. Patient left floor via gurney escorted by EMT in no distress.
== END 2019-02-11 18:30 | DRG 85 ==
LOC: SED 12:15 → STU 17:58
PROVIDERS: ADMIT Internal Medicine Hospice and Palliative Medicine; ATTEND Internal Medicine Hospice and Palliative Medicine
DX: S06.300A Unspecified focal traumatic brain injury without loss of consciousness, initial encounter (principal); G93.41 Metabolic encephalopathy; E87.1 Hypo-osmolality and hyponatremia; I42.0 Dilated cardiomyopathy; I50.42 Chronic combined systolic (congestive) and diastolic (congestive) heart failure; E44.1 Mild protein-calorie malnutrition; E87.2 Acidosis; M19.90 Unspecified osteoarthritis, unspecified site; I11.0 Hypertensive heart disease with heart failure; I34.0 Nonrheumatic mitral (valve) insufficiency; I48.0 Paroxysmal atrial fibrillation; R29.6 Repeated falls; W18.39XA Other fall on same level, initial encounter; Z60.2 Problems related to living alone; S80.01XA Contusion of right knee, initial encounter; Z79.01 Long term (current) use of anticoagulants; Z79.899 Other long term (current) drug therapy; Z85.3 Personal history of malignant neoplasm of breast; Z90.12 Acquired absence of left breast and nipple; Z92.3 Personal history of irradiation; Z95.810 Presence of automatic (implantable) cardiac defibrillator; Y93.89 Activity, other specified; Y92.89 Other specified places as the place of occurrence of the external cause; Y99.8 Other external cause status; Z79.82 Long term (current) use of aspirin; Z92.21 Personal history of antineoplastic chemotherapy; Z68.33 Body mass index [BMI] 33.0-33.9, adult
CPT/HCPCS: 36415; 70450-TC; 71045; 72125-TC; 72131; 76700-TC; 80048; 80053; 81003; 83735-TC; 84484; 85025; 85610-TC; 85730-TC; 87081; 92610-GN; 93005; 95816; 97116-GP; 97530-GP; 99285; G0378; J2270; J7042

== ENCOUNTER 2019-05-20 22:11 | Inpatient (IN) | payer OTHER ==
[~2019-05-20] VITALS: Ht 162.6 cm; Wt 73.1 kg
[2019-05-20 22:11] VITALS: BP_SYST 92
[2019-05-20] MEDS ORDERED: NACL 0.9% 1,000 ML IV ONE ×2 (22:45→23:15)
--- NOTE | 2019-05-20 22:45 | NUR ---
ER Dr. Mcneal at bedside examining patient.
--- NOTE | 2019-05-20 22:50 | NUR ---
Pt presents to ER BIB EMS from [facility] with c/o low blood pressure. Per facility, pt fell out of wheelchair earlier this evening with no LOC. Per facility, when they were assessing her after fall, they noticed low blood pressure. Upon arrival to ER, pts blood pressure 63/35. Pt c/o neck pain and nausea. No vomiting noted. Pt states pain is 4/10. Per EMS, 20 g started in L AC.
[2019-05-20] MEDS ORDERED: ONDANSETRON HCL 4 MG/2 ML VIAL IVP ONE (23:00)
--- NOTE | 2019-05-20 23:14 | NUR ---
radiology at bedside
[2019-05-20 23:43] LABS: ANION GAP 9 (5-15); CALCIUM 8.3 mg/dL (8.4-11.0); CHLORIDE 106 mmol/L (98-107); GLUCOSE 140 mg/dL (70-99); POTASSIUM 4.3 mmol/L (3.5-5.1); SODIUM SERUM 139 mmol/L (136-145); UREA NITROGEN, BLOOD 20 mg/dL (8-21)
[2019-05-20 23:45] LABS: RED BLOOD CELL COUNT(AUTO) 4.05 MIL/uL (4.2-6.2)
[2019-05-20 23:51] LABS: ALANINE AMINOTRANSFERASE 47 U/L (12-78); ALBUMIN 2.1 g/dL (3.4-4.8); ASPARTATE AMINOTRANSFERASE 29 U/L (10-37); TOTAL BILIRUBIN 0.6 mg/dL (0.0-1.0)
[2019-05-20 23:59] LABS: BASOPHILS # (AUTO) 0.1 K/uL (0.0-0.2); BASOPHILS % (AUTO) 0.5 % (0.0-2.0); EOSINOPHILS % (AUTO) 0.2 % (0.0-4.0); HEMATOCRIT 36.9 % (36-48); HEMOGLOBIN 11.8 g/dL (12.0-16.0); LYMPHOCYTES # (AUTO) 1.4 K/uL (1.0-5.5); LYMPHOCYTES % (AUTO) 9.8 % (20.5-51.5); MEAN CORPUSCULAR HEMOGLOBIN 29 pg (27-31); MEAN CORPUSCULAR HGB CONC 32 % (32-36); MEAN CORPUSCULAR VOLUME 91 fL (79.0-98.0); MONOCYTES % (AUTO) 6.9 % (1.7-9.3); NEUTROPHILS # (AUTO) 11.9 K/uL (1.8-7.7); NEUTROPHILS % (AUTO) 82.6 % (40.0-70.0); PLATELET COUNT (AUTO) 243 K/uL (130-430); RED CELL DISTRIBUTION WIDTH 17.7 % (9.0-15.0); WHITE BLOOD COUNT (AUTO) 14.4 K/uL (4.8-10.8)
[2019-05-21] MEDS ORDERED: ENOXAPARIN SODIUM 80 MG/0.8 ML SYRINGE SUBCUT ONE (00:30)
[2019-05-21] MEDS ORDERED: ASPIRIN 81 MG TABLET(ECOTRIN) PO ONE (00:30)
--- NOTE | 2019-05-21 02:03 | NUR ---
Pt states "I am cold." Pt given warm blanket.
--- NOTE | 2019-05-21 03:20 | NUR ---
Patient resting quietly. No acute distress noted. Vital signs within normal range.
[2019-05-21] MEDS ORDERED: LISI5TAB PO (05:13)
[2019-05-21] MEDS ORDERED: ASCO500T20 PO (05:13)
[2019-05-21] MEDS ORDERED: LEVE500T53 PO (05:14)
[2019-05-21] MEDS ORDERED: MULT-1117 PO (05:14)
[2019-05-21] MEDS ORDERED: AMI200 PO (05:15)
[2019-05-21] MEDS ORDERED: CARV6.2554 PO (05:15)
[2019-05-21] MEDS ORDERED: SIMV20TA2 PO (05:17)
[2019-05-21] MEDS ORDERED: ONDA4TAB5 PO (05:17)
[2019-05-21] MEDS ORDERED: ACET-2634 PO (05:19)
[2019-05-21] MEDS ORDERED: DOCU-144 PO (05:21)
[2019-05-21] MEDS ORDERED: MOM PO (05:22)
[2019-05-21] MEDS ORDERED: PROP10DR2 EACH EYE (05:27)
[2019-05-21] MEDS ORDERED: MINE3.5O OP (05:28)
--- NOTE | 2019-05-21 05:28 | NUR ---
Medication reconciliation completed with information provided by [facility]. Any prior medication reconciliation on file was reviewed and corrected.
--- NOTE | 2019-05-21 05:48 | NUR ---
Patient will be admitted to care of Greyson. Admitted to Telemetry unit. Will go to room 106A. Belongings list completed. Complete and up to date summary report printed. SBAR report to be given at bedside with opportunity for questions.
--- NOTE | 2019-05-21 05:49 | NUR ---
Transfer to Telemetry room 106A via ACLS protocol. Licensed nurse present. IV present no signs or symptoms of infiltration.
--- NOTE | 2019-05-21 05:59 | NUR ---
CONSULTATION PAGED/CALLED Reason for Consultation: ELEV TROPONIN Person Who was Notified: ORALIA Consulting Physician: DR. MORRISON Ordering Physician: DR. OLGUIN
--- NOTE | 2019-05-21 06:00 | NUR ---
ADMISSION NOTE Received patient from ER via sheree, received report from nursery hand. Patient admitted with diagnosis of elevated troponin. Patient oriented to hospital routine, call light, toileting and safety-patient verbalized understanding.
[2019-05-21] MEDS ORDERED: ACETAMINOPHEN 500 MG TABLET PO PRN (07:30)
[2019-05-21 07:52] VITALS: BP_SYST 117
[2019-05-21 08:22] VITALS: BP_SYST 120
--- NOTE | 2019-05-21 08:25 | NUR ---
INITIAL ROUNDS Received pt AAOx3, no s/s resp distress, no c/o chest pain or chest pressure. Plan of care for the day reviewed with pt-pt verbalized her understanding. Noted slight pink abrasion to right forehead and area around pt's eye. Pt c/o mild pain with movement to the back of her head/neck area on her right side-pt declined Tylenol and ice packs at this time. Pt's pillow repositioned for comfort. pain management, skin and safety discussed-teach back done. Side rails up x3, bed alarm on and room near nursing station for safety. Call light within reach.
[2019-05-21] MEDS: levETIRAcetam 500 MG TABLET PO SCH ×2 (10:30→20:37)
[2019-05-21] MEDS: AMIODARONE HCL 200 MG TABLET PO SCH ×3 (10:31→20:39)
[2019-05-21] MEDS: LISINOPRIL 5 MG TABLET PO SCH (10:31)
[2019-05-21] MEDS: CARVEDILOL 6.25 MG TABLET (COREG) PO SCH ×2 (10:32→20:39)
--- NOTE | 2019-05-21 10:45 | NUR ---
ROUNDS Pt resting quietly in bed with no s/s resp distress, no c/o chest pain or chest pressure, c/o mild pain to back of her head/neck area-pt declined pain medication and ice packs-repositioned pillows for comfort. Pt seen by Dr. Tom earlier-ECHO ordered and completed-EF 49%. Needs met, call light within reach.
[2019-05-21 11:25] VITALS: BP_SYST 121
[2019-05-21 15:05] VITALS: BP_SYST 99
--- NOTE | 2019-05-21 15:45 | NUR ---
ROUNDS/SKIN Pt's daughter here and stated that what appears to be an abrasion around pt's right eye is actually a scar from another fall. Pt sitting up in bed visiting with her family with no further c/o pain or discomfort. All precautions remain in place. call light within reach.
--- NOTE | 2019-05-21 18:55 | NUR ---
CLOSING NOTE Pt resting quietly in bed with no s/s resp distress, no c/o pain or discomfort. Needs met, call light within reach.
[2019-05-21 19:45] VITALS: BP_SYST 107
--- NOTE | 2019-05-21 19:45 | NUR ---
INITIAL NOTE AT INITIAL ASSESSMENT, PATIENT IS RESTING IN BED, STABLE, NO SIGNS OF RESPIRATORY DISTRESS. PLAN OF CARE FOR THE EVENING IS COMMUNICATED TO THE PATIENT. PATIENT VERBALIZES NO PAIN AT THIS TIME. PATIENT IS DEMONSTRATES CORRECT USAGE OF CALL LIGHT AT THIS TIME. FALL, SAFETY, AND PRECAUTIONS WILL BE TAKEN THROUGHOUT THE SHIFT. BED IS LOCKED, ALARMED, AND AT THE LOWEST LEVEL. Addendum: 05/23/19 at 0740 by Jenny Olivier RN PATIENT REFUSES SEIZURE PRECAUTION PADS DESPITE EDUCATIONAL EFFORTS.
[2019-05-21] MEDS: SIMVASTATIN 20 MG TABLET PO SCH (20:37)
--- NOTE | 2019-05-21 21:45 | NUR ---
PATIENT ASSISTED TO BEDSIDE COMMODE PATIENT ASSISTED TO BEDSIDE COMMODE FOR BOWEL MOVEMENT. HYGIENE CARE IS PROVIDED AT THIS TIME, FRESH LINENS PROVIDED. PATIENT TOLERATED WELL. SHE IS REPOSITIONED FOR COMFORT. PATIENT IS STABLE, NO SIGNS OF RESPIRATORY DISTRESS. BED IS LOCKED, ALARMED, AND AT THE LOWEST LEVEL.
[2019-05-22] VITALS: BP_SYST 110
--- NOTE | 2019-05-22 06:10 | NUR ---
CLOSING NOTE AT THIS TIME, PATIENT IS RESTING IN BED, IS STABLE, NO SIGNS OF RESPIRATORY DISTRESS. BED IS LOCKED, ALARMED, AND AT THE LOWEST LEVEL. FALL AND SAFETY PRECAUTIONS WILL BE TAKEN THROUGHOUT THE SHIFT. BED IS LOCKED, ALARMED, AND AT THE LOWEST LEVEL. WILL CONTINUE TO MONITOR UNTIL SHIFT REPORT IS GIVEN AT BEDSIDE TO AM NURSE.
--- NOTE | 2019-05-22 07:30 | NUR ---
Opening Notes Patient received lying in bed, eyes closed but easily awaken with verbal and tactile stimuli, denies any pain or discomfort, able to verbalize needs and concerns. Respiration even and unlabored. IV saline lock in place and intact, Call light within the reach. Fall precaution observed, bed alarm on, bed at lowest position. Will continue to monitor.
[2019-05-22 07:54] LABS: BASOPHILS % (AUTO) 0.6 % (0.0-2.0); EOSINOPHILS # (AUTO) 0.2 K/uL (0.0-0.4); EOSINOPHILS % (AUTO) 2.7 % (0.0-4.0); HEMATOCRIT 36.9 % (36-48); HEMOGLOBIN 12.1 g/dL (12.0-16.0); LYMPHOCYTES # (AUTO) 2.2 K/uL (1.0-5.5); MEAN CORPUSCULAR HEMOGLOBIN 29 pg (27-31); MEAN CORPUSCULAR HGB CONC 33 % (32-36); MEAN CORPUSCULAR VOLUME 88 fL (79.0-98.0); MONOCYTES # (AUTO) 0.8 K/uL (0.0-1.0); NEUTROPHILS # (AUTO) 4.7 K/uL (1.8-7.7); NEUTROPHILS % (AUTO) 58.7 % (40.0-70.0); PLATELET COUNT (AUTO) 235 K/uL (130-430); RED BLOOD CELL COUNT(AUTO) 4.18 MIL/uL (4.2-6.2); RED CELL DISTRIBUTION WIDTH 17.1 % (9.0-15.0)
[2019-05-22 08:00] VITALS: BP_SYST 109
[2019-05-22 08:10] LABS: CHOLESTEROL 105 mg/dL (<200); HDL CHOLESTEROL 37 mg/dL (>55); LDL CHOLESTEROL 51 mg/dL (<100); TRIGLYCERIDES 100 mg/dL (30-150)
--- NOTE | 2019-05-22 09:00 | NUR ---
Poor appetite Patient had a poor appetite for breakfast, offered peaches, able to consume 100% and able to finish her orange juice, denies any pain or discomfort at this time. Call light within the reach.
[2019-05-22 09:02] LABS: ALANINE AMINOTRANSFERASE 61 U/L (12-78); ALBUMIN 2.3 g/dL (3.4-4.8); ANION GAP 6 (5-15); ASPARTATE AMINOTRANSFERASE 36 U/L (10-37); CALCIUM 9.5 mg/dL (8.4-11.0); CHLORIDE 105 mmol/L (98-107); CREATININE 0.77 mg/dL (0.55-1.30); GLUCOSE 73 mg/dL (70-99); POTASSIUM 4.2 mmol/L (3.5-5.1); SODIUM SERUM 138 mmol/L (136-145); THYROID STIMULATING HORMONE 10.02 uIu/mL (0.36-3.74); TOTAL BILIRUBIN 0.4 mg/dL (0.0-1.0); UREA NITROGEN, BLOOD 13 mg/dL (8-21)
[2019-05-22] MEDS: levETIRAcetam 500 MG TABLET PO SCH ×2 (09:15→20:34)
[2019-05-22] MEDS: AMIODARONE HCL 200 MG TABLET PO SCH ×2 (09:16→20:35)
[2019-05-22] MEDS: CARVEDILOL 6.25 MG TABLET (COREG) PO SCH ×2 (09:16→20:34)
[2019-05-22] MEDS: LISINOPRIL 5 MG TABLET PO SCH (09:17)
--- NOTE | 2019-05-22 09:54 | NUR ---
Nutrition Update Anup Scale 16 noted. Pt admitted for elevated troponin Diet: 2gmNa BMI: 27.6 kg/m2 RD to follow per nutrition care standards.
[2019-05-22] MEDS ORDERED: ONDANSETRON HCL 4 MG/2 ML VIAL IVP PRN (10:00)
[2019-05-22] MEDS ORDERED: NS 500 ML IV ONE (10:00)
--- NOTE | 2019-05-22 10:10 | NUR ---
Dr. Harris Rounds Seen and examined by MD with new order for arterial Doppler to bilateral lower extremities for poor circulation, noted and carried out.
[2019-05-22 11:18] VITALS: BP_SYST 107
--- NOTE | 2019-05-22 12:20 | NUR ---
RN ROUNDS Patient currently eating lunch, denies any pain or discomfort at this time. Denies any pain or discomfort. Respiration even and unlabored. Call light within the reach.
--- NOTE | 2019-05-22 14:20 | NUR ---
RN ROUNDS Patient asleep, respiration even and unlabored, no moaning or grimacing noted. Call light within the reach.
[2019-05-22 15:28] VITALS: BP_SYST 117
--- NOTE | 2019-05-22 16:30 | NUR ---
RN ROUNDS Patient asleep, respiration even and unlabored, no moaning or grimacing noted. Call light within the reach. IVF infusing well.
--- NOTE | 2019-05-22 18:45 | NUR ---
Closing Notes Patient alert, awake and verbally responsive. Denies any pain or discomfort. Respiration even and unlabored. IVF infusing well. Fall precaution observed. Bed at lowest position, bed alarm on. Call light within the reach.
[2019-05-22 19:45] VITALS: BP_SYST 126
--- NOTE | 2019-05-22 19:45 | NUR ---
INITIAL NOTE / SEIZURE PADS REFUSAL AT INITIAL ASSESSMENT, PATIENT IS RESTING IN BED, STABLE, NO SIGNS OF RESPIRATORY DISTRESS. PLAN OF CARE FOR THE EVENING IS COMMUNICATED TO THE PATIENT. PATIENT VERBALIZES NO PAIN AT THIS TIME. PATIENT IS DEMONSTRATES CORRECT USAGE OF CALL LIGHT AT THIS TIME. FALL, SAFETY, AND PRECAUTIONS WILL BE TAKEN THROUGHOUT THE SHIFT. BED IS LOCKED, ALARMED, AND AT THE LOWEST LEVEL. PATIENT REFUSES SEIZURE PRECAUTION PADS DESPITE EDUCATIONAL EFFORTS.
[2019-05-22] MEDS: SIMVASTATIN 20 MG TABLET PO SCH (20:34)
[2019-05-23] VITALS: BP_SYST 104
--- NOTE | 2019-05-23 06:05 | NUR ---
CLOSING NOTE NO CHANGES THROUGHOUT THE NIGHT, PATIENT WAS MORE ALERT TONIGHT. AT THIS TIME, PATIENT IS RESTING IN BED, IS STABLE, NO SIGNS OF RESPIRATORY DISTRESS. BED IS LOCKED, ALARMED, AND AT THE LOWEST LEVEL. FALL AND SAFETY PRECAUTIONS WILL BE TAKEN THROUGHOUT THE SHIFT. BED IS LOCKED, ALARMED, AND AT THE LOWEST LEVEL. WILL CONTINUE TO MONITOR UNTIL SHIFT REPORT IS GIVEN AT BEDSIDE TO AM NURSE.
[2019-05-23] MEDS: LEVOTHYROXINE SODIUM 0.025 MG TABLET PO SCH (06:27)
--- NOTE | 2019-05-23 07:15 | NUR ---
Opening Notes Patient received lying on bed, alert, awake and verbally responsive, respiration even and unlabored. Denies any pain or discomfort, able to verbalize needs and concerns. IV saline lock in place and intact, Call light within the reach. Fall precaution observed, bed alarm on, bed at lowest position. Will continue to monitor.
[2019-05-23 08:00] VITALS: BP_SYST 105
[2019-05-23] MEDS: levETIRAcetam 500 MG TABLET PO SCH ×2 (09:16→20:31)
[2019-05-23] MEDS: AMIODARONE HCL 200 MG TABLET PO SCH ×2 (09:16→20:30)
[2019-05-23] MEDS: CARVEDILOL 6.25 MG TABLET (COREG) PO SCH ×2 (09:17→20:31)
[2019-05-23] MEDS: LISINOPRIL 5 MG TABLET PO SCH (09:17)
[2019-05-23] MEDS ORDERED: CEPH250C PO (09:37)
[2019-05-23] MEDS ORDERED: LEVO25TA2 PO (09:37)
--- NOTE | 2019-05-23 09:45 | NUR ---
Dr. Harris Rounds Seen and examined by MD, will follow-up for any new orders.
--- NOTE | 2019-05-23 10:30 | NUR ---
Dr. Tom Rounds Seen and examined by MD, agreed to be discharged today, but wants to await for PT eval. PT notified,
--- NOTE | 2019-05-23 12:06 | NUR ---
Called Dr. Harris re:D/C order Called and spoke with MD regarding PT recommendation for patient to be discharge to SNF, per MD Patient may be discharge to [facility], will notify renal case manager.
[2019-05-23 12:25] VITALS: BP_SYST 113
--- NOTE | 2019-05-23 13:19 | NUR ---
Discharge Planning [facility] received the order for discharge to SNF. Met with patient at bedside who is somewhat confused. She requested I phone her daughter, Flory. Left a voicemail for Flory Paniagua, , who called back. She stated patient had recently been at [facility] for over 100 days. She would like to speak with the doctor prior to discharge. Forwarded the call to patient's nurse, Yuliana. Will remain available. Addendum: 05/23/19 at 1347 by Svetlana Burgos [facility] William HARDEN spoke with patient's daughter in law, Flory. She is agreeable for patient's information to be faxed to [facility]. Patient may require senior living placement. [facility] faxed patient's information to [place], p [phone] f [phone].
--- NOTE | 2019-05-23 15:00 | NUR ---
RN ROUNDS Patient remain to be alert, awake and verbally responsive, denies any pain or discomfort at this time. Able to verbalize needs and concerns. Call light within the reach.
--- NOTE | 2019-05-23 15:29 | NUR ---
DC Planning: Per Stacy at [facility], declined taking pt dt not one on one staff for the pt. This due to concerning pt is high risk for fall and confusion. Addendum: 05/23/19 at 1605 by William Cohen RN >> Updated Flory with son/POA permission that there is no accepting [facility] so[facility]. Flory concerns that the pt may not be able to go back to [facility]. 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 She asked for assistance finding one in [place], , [employer] or [facility]. >> CM contacted Eliot Teague/affiliated with [facility] . S/w Nayan for the referral inquiry. Svetlana is to fax the request for financial /clinical review. CM to f/u.
--- NOTE | 2019-05-23 16:06 | NUR ---
DC to SNF: Pt is accepted at [facility]. Per Nayan assigned pt to room 39A , bed available tomorrow after 7 am. mariluz Ruthr made aware, she agreed with the transfer and POC. Per Lilia at Dr. Lula Harris #[phone] asking cm to notify his associate/October # [phone]. CM s/w October,D.O , he agreed with the transfer to [facility] as well. >> MATHIEU Bridges Made aware and to arrange the ambulance tonight for am transfer. DC package delivered to [facility] unit.
[2019-05-23 16:15] VITALS: BP_SYST 116
--- NOTE | 2019-05-23 17:30 | NUR ---
RN ROUNDS Patient resting well, denies any pain or discomfort at this time. Respiration even and unlabored. Call light within the reach,
--- NOTE | 2019-05-23 18:56 | NUR ---
Closing Notes Patient remain to be alert, awake and verbally responsive. IV saline lock in place. Denies any pain or discomfort. Respiration even and unlabored. Patient will be discharge in am.Fall precaution observed. Bed at lowest position, bed alarm on. Call light within the reach. Will endorse to the next shift regarding arranging transportation in am.
--- NOTE | 2019-05-23 19:50 | NUR ---
PM SHIFT ASSESSMENT Received patient lying in bed, aox3, vital signs stable, c/o of nausea, will medicate shortly, denies any other pain at this time, plan of care provided to patient, verbalized understanding, compliant, repositioned for comfort, oriented to use call light for nurse assistance, safety measures in place, will monitor.
[2019-05-23 20:00] VITALS: BP_SYST 123
[2019-05-23] MEDS: SIMVASTATIN 20 MG TABLET PO SCH (20:30)
--- NOTE | 2019-05-23 20:45 | NUR ---
MED PASS Patient awake, due medications administered, aspiration precautions maintained, educated on use and side effects of medications. Patient verbalized understanding.
--- NOTE | 2019-05-23 22:29 | NUR ---
RN ROUNDS Patient awake, denies any pain or discomfort at this time, hygiene care provided, repositioned and turned with pillow support, call light within reach, and safety measures in place.
--- NOTE | 2019-05-24 00:27 | NUR ---
RN ROUNDS Patient resting quietly in bed, vital signs stable, fall and safety measures in place, call light remains within reach, will monitor.
[2019-05-24 00:54] VITALS: BP_SYST 103
--- NOTE | 2019-05-24 02:07 | NUR ---
RN ROUNDS Patient resting quietly in bed, breathing is even and unlabored, fall and safety measures in place, call light remains within reach, will monitor.
--- NOTE | 2019-05-24 04:03 | NUR ---
Called [facility], s/w Shanna. ETA [id number]
--- NOTE | 2019-05-24 04:14 | NUR ---
RN ROUNDS Patient sleeping, respirations even and unlabored, repositioned and turned, fall and safety measures in place, call light remains within reach, will monitor.
[2019-05-24] MEDS: LEVOTHYROXINE SODIUM 0.025 MG TABLET PO SCH (06:08)
--- NOTE | 2019-05-24 06:29 | NUR ---
CLOSING NOTE Patient sleeping, respirations even and unlabored, on room air, due medications administered, hygiene care provided, repositioned and turned, fall and safety measures maintained through out the shift, call light remains within reach, will monitor until report given to am nurse.
[2019-05-24 07:55] VITALS: BP_SYST 100
--- NOTE | 2019-05-24 08:00 | NUR ---
Initial notes- In bed, awake and oriented. Denies any chest pain or shortness of breath. Able to feed self. Uses bedside commode but patient is still weak. Safety precaution observed. Call light in reach. Bed alarm on. will monitor.
[2019-05-24 08:09] VITALS: BP_SYST 100
[2019-05-24] MEDS: CARVEDILOL 6.25 MG TABLET (COREG) PO SCH (08:39)
[2019-05-24] MEDS: LISINOPRIL 5 MG TABLET PO SCH (08:39)
[2019-05-24] MEDS: levETIRAcetam 500 MG TABLET PO SCH (08:40)
[2019-05-24] MEDS: AMIODARONE HCL 200 MG TABLET PO SCH (08:40)
--- NOTE | 2019-05-24 10:00 | NUR ---
notes- report given to Kayla MURDOCK to [facility].
--- NOTE | 2019-05-24 10:26 | NUR ---
Notes- In bed, resting denies any pain or shortness of breath. Waiting for ambulance picking table worker
--- NOTE | 2019-05-24 10:47 | NUR ---
discharge- D/c patient to [facility]. Denies any pain or discomfort. D/C packet given to ambulance staff and belongings. IVL removed. No distress noted.
--- NOTE | 2019-05-24 14:12 | NUR ---
PHYSICAL THERAPY CO-SIGN The Physical Therapy Progress Notes documented by Senior Principal Process Engineer have been reviewed. Reviewed/Co-Signed by: Bryan Key PT Documentation Done by: PATI HORNER PTA Addendum: 05/24/19 at 1414 by Bryan Key PT Amended: Links added.
--- NOTE | 2019-05-24 14:13 | NUR ---
PHYSICAL THERAPY CO-SIGN The Physical Therapy Progress Notes documented by Mri Assistant have been reviewed. Reviewed/Co-Signed by: Bryan Key PT Documentation Done by: PATI HORNER PTA Addendum: 05/24/19 at 1414 by Bryan Key PT Amended: Links added.
== END 2019-05-24 10:47 | DRG 280 ==
LOC: SED 22:11 → STU 05-21 05:22
PROVIDERS: ADMIT Internal Medicine Hospice and Palliative Medicine; ATTEND Internal Medicine Hospice and Palliative Medicine
DX: I21.4 Non-ST elevation (NSTEMI) myocardial infarction (principal); E43 Unspecified severe protein-calorie malnutrition; I42.0 Dilated cardiomyopathy; I48.0 Paroxysmal atrial fibrillation; F03.90 Unspecified dementia, unspecified severity, without behavioral disturbance, psychotic disturbance, mood disturbance, and anxiety; G40.909 Epilepsy, unspecified, not intractable, without status epilepticus; I25.10 Atherosclerotic heart disease of native coronary artery without angina pectoris; I34.0 Nonrheumatic mitral (valve) insufficiency; R29.6 Repeated falls; F10.10 Alcohol abuse, uncomplicated; R26.9 Unspecified abnormalities of gait and mobility; I50.9 Heart failure, unspecified; I95.9 Hypotension, unspecified; I11.0 Hypertensive heart disease with heart failure; E03.9 Hypothyroidism, unspecified; I73.9 Peripheral vascular disease, unspecified; Z79.01 Long term (current) use of anticoagulants; Z85.3 Personal history of malignant neoplasm of breast; Z86.73 Personal history of transient ischemic attack (TIA), and cerebral infarction without residual deficits; Z90.12 Acquired absence of left breast and nipple; Z95.810 Presence of automatic (implantable) cardiac defibrillator; Z79.899 Other long term (current) drug therapy; Z79.82 Long term (current) use of aspirin; Z90.49 Acquired absence of other specified parts of digestive tract; Z98.1 Arthrodesis status
CPT/HCPCS: 36415; 70450-TC; 71045; 80053; 80061; 82550-TC; 83880; 84439; 84443-TC; 84480; 84484; 85025; 85379; 93005; 93306; 93923; 96372; 96374; 97110-GP; 97116-GP; 97530-GP; 99285; G0378; J1650; J2405; J7040

== ENCOUNTER 2019-06-11 16:49 | Inpatient (IN) | payer OTHER ==
[~2019-06-11] VITALS: Ht 162.6 cm; Wt 71.7 kg
[~2019-06-11 16:49] MED LIST changes: +ACET-2634 PO; +ASCO500T20 PO; -ASPI-1155 PO; +CARV6.2554 PO; +CEPH250C PO; -COR25 PO; +DOCU-144 PO; -FURO-149 PO; -LEVE1000 PO; +LEVE500T53 PO; +LEVO25TA2 PO; -LISI10TA5 PO; +LISI5TAB PO; +MINE3.5O OP; +MOM PO; -MULT PO; +MULT-1117 PO; +ONDA4TAB5 PO; +PROP10DR2 EACH EYE; -RIVA15TA PO
[2019-06-11 16:50] VITALS: BP_SYST 79
--- NOTE | 2019-06-11 16:50 | NUR ---
BROUGHT IN BY [facility], PLACED IN BED #6 AND TRIAGED. REPORT GIVEN TO KARINE
--- NOTE | 2019-06-11 16:51 | NUR ---
Patient is lethargic, states she has been hypotensive for days. Patient denies any pain or other symptoms. Just that she feels tired.
--- NOTE | 2019-06-11 16:52 | NUR ---
ER Dr. Siu at bedside examining patient.
[2019-06-11] MEDS ORDERED: NACL 0.9% 1,000 ML IV ONE ×2 (17:15→18:45)
[2019-06-11 17:44] LABS: BASOPHILS # (AUTO) 0.1 K/uL (0.0-0.2); BASOPHILS % (AUTO) 0.6 % (0.0-2.0); EOSINOPHILS # (AUTO) 0.1 K/uL (0.0-0.4); EOSINOPHILS % (AUTO) 0.9 % (0.0-4.0); HEMATOCRIT 40.2 % (36-48); HEMOGLOBIN 13.1 g/dL (12.0-16.0); LYMPHOCYTES # (AUTO) 1.2 K/uL (1.0-5.5); LYMPHOCYTES % (AUTO) 11.9 % (20.5-51.5); MEAN CORPUSCULAR HEMOGLOBIN 29 pg (27-31); MEAN CORPUSCULAR HGB CONC 33 % (32-36); MEAN CORPUSCULAR VOLUME 87 fL (79.0-98.0); MONOCYTES # (AUTO) 0.7 K/uL (0.0-1.0); MONOCYTES % (AUTO) 7.3 % (1.7-9.3); NEUTROPHILS % (AUTO) 79.3 % (40.0-70.0); PLATELET COUNT (AUTO) 224 K/uL (130-430); RED CELL DISTRIBUTION WIDTH 17.3 % (9.0-15.0); WHITE BLOOD COUNT (AUTO) 10.1 K/uL (4.8-10.8)
[2019-06-11 18:00] LABS: ANION GAP 5 (5-15); CALCIUM 9.8 mg/dL (8.4-11.0); CHLORIDE 104 mmol/L (98-107); CREATININE 0.81 mg/dL (0.55-1.30); GLUCOSE 138 mg/dL (70-99); POTASSIUM 3.8 mmol/L (3.5-5.1); SODIUM SERUM 137 mmol/L (136-145); UREA NITROGEN, BLOOD 31 mg/dL (8-21)
[2019-06-11 18:09] LABS: ALANINE AMINOTRANSFERASE 227 U/L (12-78); ALBUMIN 2.4 g/dL (3.4-4.8); ASPARTATE AMINOTRANSFERASE 124 U/L (10-37); TOTAL BILIRUBIN 0.4 mg/dL (0.0-1.0)
[2019-06-11] MEDS ORDERED: cefTRIAXone 1 GM IVPB PREMIX 50 ML IV ONE (18:45)
--- NOTE | 2019-06-11 18:47 | NUR ---
Patient will be admitted to care of Dr. Domingo. Admitted to Telemetry unit. Will go to room 103A. Belongings list completed. Complete and up to date summary report printed. SBAR report to be given at bedside with opportunity for questions.
[2019-06-11] MEDS ORDERED: SSREG SUBCUT (18:57)
[2019-06-11] MEDS ORDERED: ONDA4TAB5 PO (18:57)
[2019-06-11] MEDS ORDERED: DEXT30DR6 EACH EYE (18:57)
--- NOTE | 2019-06-11 18:57 | NUR ---
Medication reconciliation completed with information provided by Eliot Teague. Any prior medication reconciliation on file was reviewed and corrected.
[2019-06-11 18:58] LABS: BILIRUBIN,URINE 1+ (NEGATIVE); BLOOD, URINE 2+ (NEGATIVE); CLARITY/URINE TURBID (CLEAR); COLOR,URINE YELLOW (YELLOW); GLUCOSE,URINE NEGATIVE (NEGATIVE); KETONES,URINE 2+ (NEGATIVE); LEUKOCYTE ESTERASE ,URINE 3+ (NEGATIVE); NITRITE, URINE NEGATIVE (NEGATIVE); PH,URINE 8.5 (5.0-8.0); PROTEIN URINE 3+ (NEGATIVE)
--- NOTE | 2019-06-11 19:15 | NUR ---
Received report from MATHIEU Rosen. All care endorsed.
[2019-06-11 19:18] LABS: BACTERIA,URINE MANY /HPF (None Seen); WBC,URINE >100 /HPF (0-3)
[2019-06-11 19:20] LABS: MUCUS,URINE None Seen /LPF (None Seen); URINE AMORPHOUS PHOSPHATES 4+ /HPF (None Seen); YEAST,URINE None Seen /HPF (None Seen)
--- NOTE | 2019-06-11 19:33 | NUR ---
Pt medicated per MD orders. Pt tolerated well. Will continue to monitor.
[2019-06-11] MEDS ORDERED: GLUCOSE 15 GM GEL (in 37.5 GM TUBE) PO PRN (20:00)
[2019-06-11] MEDS ORDERED: DEXTROSE 50% JECT 50 ML DISP.SYRIN IVP PRN (20:00)
[2019-06-11] MEDS ORDERED: ACETAMINOPHEN 500 MG TABLET PO PRN (20:00)
[2019-06-11] MEDS ORDERED: LORazepam 2 MG/ML VIAL IVP PRN (20:00)
[2019-06-11] MEDS ORDERED: ONDANSETRON HCL 4 MG/2 ML VIAL IVP PRN (20:15)
[2019-06-11] MEDS: SIMVASTATIN 20 MG TABLET PO SCH (21:00)
[2019-06-11] MEDS: levETIRAcetam 500 MG TABLET PO SCH (21:00)
[2019-06-11] MEDS: DOCUSATE SODIUM 100 MG CAPSULE PO SCH (21:00)
--- NOTE | 2019-06-11 21:06 | NUR ---
Transfer to Telemetry room 103A via ACLS protocol. Licensed nurse present. IV present no signs or symptoms of infiltration.
[2019-06-11 21:26] VITALS: BP_SYST 107
--- NOTE | 2019-06-11 21:27 | NUR ---
ADMISSION NOTE Received patient from ER via guroriana, received report from RN. Patient admitted with diagnosis of SEPSIS. Patient oriented to hospital routine, call light, toileting and safety-patient verbalized understanding.
--- NOTE | 2019-06-11 22:30 | NUR ---
ROUNDS Patient is resting in bed, eyes closed, breathing evenly and nonlabored on 2L of oxygen via NC. IVF running, patient is tolerating it well. IV on right AC 20g is patent and benign, no s/s of infection or infiltration noted at this time. No s/s of distress at this time, no other needs at this time. Fall/safety/seizure precautions.
[2019-06-11] MEDS ORDERED: CEFEPIME 1 GM/VIAL (MAXIPIME) ONE (22:36)
[2019-06-12] MEDS: CEFEPIME 1 GM in D5W 50 ML IV SCH ×3 (00:18→20:32)
--- NOTE | 2019-06-12 00:24 | NUR ---
MEDICATIONS/ROUNDS Patient is resting in bed, eyes closed, breathing evenly and nonlabored on 2L of oxygen via NC. Patient was too drowsy to take oral medications. BS checked, no coverage needed. Educated patient on IV medication, patient was too drowsy to state understanding. Administered IV medication, patient is tolerating it well. No s/s of distress at this time, no other needs at this time. Fall/safety/seizure precautions.
[2019-06-12] MEDS: D5/0.45 NS 1,000 ML IV SCH ×3 (00:27→20:32)
--- NOTE | 2019-06-12 00:54 | NUR ---
CONSULT: CONSULT CALLED FOR DR. MYLES COLON I SPOKE WITH INESS EXCHANGE REASON FOR CONSULT: LOW BLOOD PRESSURE REQUESTING CONSULT: DR. MCKEON NONPROFIT DIRECTOR PHONE NUMBER: [phone]
--- NOTE | 2019-06-12 02:30 | NUR ---
ROUNDS Patient asleep, breathing is even and unlabored, remains on 02 2l NC, vitals stable, IVF ongoing, fall and safety measures in place, will closely monitor.
--- NOTE | 2019-06-12 04:22 | NUR ---
ROUNDS Patient is resting in bed, eyes closed, breathing evenly and nonlabored on 2L of oxygen via NC. IVF running, patient is tolerating it well. No s/s of distress at this time, no other needs at this time. Fall/safety/seizure precautions.
[2019-06-12 04:40] VITALS: BP_SYST 107
--- NOTE | 2019-06-12 06:28 | NUR ---
CLOSING NOTE Patient resting quietly, denies any pain or discomfort at this time, blood sugar check this am of 110, no insulin coverage noted. IV line to right ac intact and patent, IVF continues to infuse, incontinence care provided, turned and repositioned with pillow support, patient needs attended to, fall and safety measures maintained, call light remains within reach, will monitor until report given to am nurse.
[2019-06-12 07:35] VITALS: BP_SYST 98
--- NOTE | 2019-06-12 07:35 | NUR ---
Opening note patient resting in bed, a/ox3 - reoriented to place and time, she verbalized understanding, patient is sleepy, continues to have low blood pressure from material handler 2nd shift, assessment complete, IV line is patent and infusing well, unable to educate patient due to her drowsiness, continuing to monitor, bed in lowest position, three side rails up, bed alarm on, bed close to nursing station, fall, aspiration and seizure precautions in place.
--- NOTE | 2019-06-12 08:56 | NUR ---
Nutrition Update Anup Scale 13 noted. Pt admitted for sepsis. Diet: [facility] BMI: 24.9 kg/m2 RD to follow per nutrition care standards.
[2019-06-12] MEDS: DOCUSATE SODIUM 100 MG CAPSULE PO SCH ×2 (09:00→20:33)
[2019-06-12] MEDS: levETIRAcetam 500 MG TABLET PO SCH ×2 (09:00→20:33)
[2019-06-12] MEDS: MULTIVITAMINS TAB 1 TABLET PO SCH (09:00)
[2019-06-12] MEDS: ASCORBIC ACID 500 MG TABLET PO SCH (09:00)
--- NOTE | 2019-06-12 09:40 | NUR ---
Spoke with Madyson Beauchamp regarding cardio consult, orders received, will follow up.
--- NOTE | 2019-06-12 09:42 | NUR ---
RN rounds patient resting in bed, no signs of distress, however patient is still drowsy, she was able to follow minimal instructions when asked to assist with turning her body during hygiene care, patient did not want to take her medications and is too drowsy to take medications at this time, continuing to monitor the patient, bed in lowest position, three side rails up, bed alarm on, bed close to nursing station, fall, aspiration and seizure precautions in place.
--- NOTE | 2019-06-12 10:10 | NUR ---
Called pharmacy to verify new orders, and have not received 0900 Maxipime at this time, will follow up as needed.
[2019-06-12] MEDS ORDERED: ENOXAPARIN SODIUM 40 MG/0.4 ML SYRINGE SUBCUT ONE (10:15)
--- NOTE | 2019-06-12 10:29 | NUR ---
Medication patient resting in bed, eyes closed, patient is arousable to voice and touch, medications administered per MD orders, patient tolerated well, IV line is patent and infusing well, continuing to monitor, bed in lowest position, three side rails up, bed alarm on, bed close to nursing station, call light placed within patient reach, fall, aspiration and seizure precautions in place.
--- NOTE | 2019-06-12 10:56 | NUR ---
Medication patient resting in bed, eyes closed, patient is arousable to voice and touch, blood glucose checked, no insulin coverage per MD orders, IV line is patent and infusing well, continuing to monitor, bed in lowest position, three side rails up, bed alarm on, bed close to nursing station, call light placed within patient reach, fall, aspiration and seizure precautions in place.
[2019-06-12 11:19] VITALS: BP_SYST 94
--- NOTE | 2019-06-12 11:37 | NUR ---
SS NOTES/ATTEMPT: DIET AIDE attempted to meet with patient who was asleep and unarousable. SS will follow-up for DCP.
--- NOTE | 2019-06-12 12:00 | NUR ---
Dr. Jose L lezama assessed patient, informed MD of updates and low blood pressure, MD to place orders, will follow up. Addendum: 06/12/19 at 1219 by Avery Roman RN requested for Swallow Evaluation - placed orders - Lou Speech Therapist was called and she will see the patient.
--- NOTE | 2019-06-12 12:09 | NUR ---
Pain patient complaining of neck pain, educated her on pain medication she verbalized understanding, medication crushed and administered with apple sauce, patient is slow to swallow, she tolerated, well continuing to monitor, bed in lowest position, three side rails up, bed alarm on, bed close to nursing station, call light within reach, fall and aspiration precautions in place.
--- NOTE | 2019-06-12 13:09 | NUR ---
RN rounds patient resting in bed, awake, states pain has improved, pending swallow evaluation today, patient has no other needs at this time, bed in lowest position, three side rails up, bed alarm on, bed close to nursing station, fall, aspiration and seizure precautions in place.
--- NOTE | 2019-06-12 13:46 | NUR ---
S.T. SWALLOW EVAL SWALLOW EVAL COMPLETED. PT IS AROUSABLE BUT STILL OVERALL LETHARGIC. PT PRESENTS W/ ML-MOD ORAL DYSPHAGIA W/ PROLONGED MASTICATION. NO S/S OF ASPIRATION. REC: MECH SOFT FINELY CHOPPED DIET. THIN LIQUIDS OK. FEED ONLY WHEN FULLY AWAKE. PT ALSO C/O OF NURSE PAIN. NURSE ZHENG NOTIFIED. [id number] CJ [id number] CJ [id number] NOMS LEVEL 5
[2019-06-12] MEDS ORDERED: MIDODRINE HCL 5 MG TABLET (PROAMATINE) PO ONE (14:30)
--- NOTE | 2019-06-12 14:41 | NUR ---
RN rounds patient resting in bed, awake, denies pain, educated her on new medication uses and potential side effects, she verbalized understanding, medication was crushed and placed in applesauce, patient tolerated well, aspiration precautions in place, no other needs at this time, continuing to monitor, bed in lowest position, three side rails up, bed alarm on, bed close to nursing station, fall and aspiration precautions in place.
[2019-06-12 15:13] VITALS: BP_SYST 90
--- NOTE | 2019-06-12 16:20 | NUR ---
RN rounds patient resting in bed, awake, denies pain, patient asking for water, provided with water, aspiration precautions in place, no signs of distress, IV line is patent and infusing well, continuing to monitor, bed in lowest position, three side rails up, bed alarm on, bed close to nursing station, fall and aspiration precautions in place.
--- NOTE | 2019-06-12 18:40 | NUR ---
Closing note patient resting in bed, awake, denies pain, denies shortness of breath, offered patient assistance with dinner, she states," I don't want to eat, it smells bad," offered alternate items, patient refuses, all other needs met, will endorse report to NOC shift nurse, bed in lowest position, three side rails up, bed alarm on, bed close to nursing station, fall, aspiration and seizure precautions in place.
[2019-06-12 19:45] VITALS: BP_SYST 117
--- NOTE | 2019-06-12 19:45 | NUR ---
OPENING NOTES Patient is resting in bed, eyes closed, breathing evenly and nonlabored on 2L of oxygen via NC. IVF stopped, IV on right AC 20g is infiltrated, will restart IV on another site. Educated patient on plan of care, fall/safety/seizure precautions, and call light system, patient stated understanding with return demonstration. Bed is locked, armed, and at lowest position, padded side rails in place. Will continue to monitor.
[2019-06-12] MEDS: MIDODRINE HCL 5 MG TABLET (PROAMATINE) PO SCH (20:31)
[2019-06-12] MEDS: SIMVASTATIN 20 MG TABLET PO SCH (20:33)
--- NOTE | 2019-06-12 20:40 | NUR ---
MEDICATIONS/ROUNDS Patient is resting in bed, eyes closed, breathing evenly and nonlabored on 2L of oxygen via NC. Educated patient on due medications, patient stated understanding. Patient refused all due oral medications except for proamatine. Administered proamatine crushed with apple sauce per patient request, patient tolerated it well. BS checked, no coverage needed. Restarted IV on right forearm 20g, patent and benign, no s/s of infiltration or infection noted, restarted IVF, administered IV medication, patient is tolerating it well. No s/s of distress at this time, no other needs at this time. Fall/safety/seizure precautions.
--- NOTE | 2019-06-12 22:30 | NUR ---
ROUNDS Patient is resting in bed, eyes closed, breathing evenly and nonlabored on 2L of oxygen via NC. IVF running, patient is tolerating it well. DIRECTOR ORACLE at bedside performing hygiene care. No s/s of distress at this time, no other needs at this time. Fall/safety/seizure precautions.
[2019-06-13 01:07] VITALS: BP_SYST 100
--- NOTE | 2019-06-13 01:35 | NUR ---
ROUNDS Patient is resting in bed, awake, breathing evenly and nonlabored on 2L of oxygen via NC. IVF running, patient is tolerating it well. Hygiene care performed. No s/s of distress at this time, no other needs at this time. Fall/safety/seizure precautions.
--- NOTE | 2019-06-13 03:30 | NUR ---
ROUNDS Patient is resting in bed, eyes closed, breathing evenly and nonlabored on 2L of oxygen via NC. IVF running, patient is tolerating it well. No s/s of distress at this time, no other needs at this time. Fall/safety/seizure precautions. Will continue to monitor.
--- NOTE | 2019-06-13 06:45 | NUR ---
CLOSING NOTE Patient resting quietly, denies any pain or discomfort at this time, blood sugar check this am of 89, no insulin coverage noted. IV line to right ac intact and patent, IVF continues to infuse, incontinence care provided, turned and repositioned with pillow support, patient needs attended to, fall and safety measures maintained, call light remains within reach, will monitor until report given to am nurse.
--- NOTE | 2019-06-13 07:30 | NUR ---
Opening note patient resting in bed at this time, A/ox3. No complaints of pain. No SOB. Iv patent, intact, and infusing fluids as ordered. No adverse side effects noted. No infiltration noted. On seizure, safety, and aspiration precautions, padded side rails in place, HOB kept elevated, 3 hand packer rails up, bed alarm on. call light within reach. patient in stable condition. will continue to monitor.
[2019-06-13 07:56] LABS: BASOPHILS # (AUTO) 0.1 K/uL (0.0-0.2); BASOPHILS % (AUTO) 1.1 % (0.0-2.0); EOSINOPHILS # (AUTO) 0.2 K/uL (0.0-0.4); EOSINOPHILS % (AUTO) 2.9 % (0.0-4.0); HEMATOCRIT 36.7 % (36-48); HEMOGLOBIN 12.2 g/dL (12.0-16.0); LYMPHOCYTES # (AUTO) 1.7 K/uL (1.0-5.5); LYMPHOCYTES % (AUTO) 24.1 % (20.5-51.5); MEAN CORPUSCULAR HEMOGLOBIN 29 pg (27-31); MEAN CORPUSCULAR HGB CONC 33 % (32-36); MEAN CORPUSCULAR VOLUME 87 fL (79.0-98.0); MONOCYTES # (AUTO) 0.7 K/uL (0.0-1.0); MONOCYTES % (AUTO) 9.2 % (1.7-9.3); NEUTROPHILS # (AUTO) 4.5 K/uL (1.8-7.7); NEUTROPHILS % (AUTO) 62.7 % (40.0-70.0); PLATELET COUNT (AUTO) 198 K/uL (130-430); RED BLOOD CELL COUNT(AUTO) 4.21 MIL/uL (4.2-6.2); RED CELL DISTRIBUTION WIDTH 17.5 % (9.0-15.0)
[2019-06-13 08:00] VITALS: BP_SYST 112
[2019-06-13 08:04] LABS: WHITE BLOOD COUNT (AUTO) 7.1 K/uL (4.8-10.8)
[2019-06-13 08:10] LABS: ALANINE AMINOTRANSFERASE 184 U/L (12-78); ANION GAP 4 (5-15); ASPARTATE AMINOTRANSFERASE 76 U/L (10-37); CALCIUM 8.8 mg/dL (8.4-11.0); CHLORIDE 104 mmol/L (98-107); GLUCOSE 98 mg/dL (70-99); POTASSIUM 3.1 mmol/L (3.5-5.1); SODIUM SERUM 135 mmol/L (136-145); TOTAL BILIRUBIN 0.3 mg/dL (0.0-1.0); UREA NITROGEN, BLOOD 16 mg/dL (8-21)
[2019-06-13] MEDS: CEFEPIME 1 GM in D5W 50 ML IV SCH ×2 (09:05→22:00)
[2019-06-13] MEDS: levETIRAcetam 500 MG TABLET PO SCH ×2 (09:06→21:58)
[2019-06-13] MEDS: MIDODRINE HCL 5 MG TABLET (PROAMATINE) PO SCH ×2 (09:06→21:58)
[2019-06-13] MEDS: DOCUSATE SODIUM 100 MG CAPSULE PO SCH ×2 (09:06→21:57)
[2019-06-13] MEDS: MULTIVITAMINS TAB 1 TABLET PO SCH (09:06)
[2019-06-13] MEDS: ASCORBIC ACID 500 MG TABLET PO SCH (09:06)
[2019-06-13] MEDS: ENOXAPARIN SODIUM 40 MG/0.4 ML SYRINGE SUBCUT SCH (09:07)
[2019-06-13] MEDS: D5/0.45 NS 1,000 ML IV SCH ×2 (09:24→13:40)
--- NOTE | 2019-06-13 09:36 | NUR ---
medications All morning medications given as ordered. No adverse side effects. no nausea, no vomiting. Patient eating breakfast at this time.
--- NOTE | 2019-06-13 10:24 | NUR ---
Physical Therapy order has been received and the chart reviewed. RN gave medical clearance. Patient refused the evaluation. Discussed pros and cons of refusing. She understands but still declines the evaluation. Plan: Attempt at a later time.
--- NOTE | 2019-06-13 11:25 | NUR ---
rounds patient resting in bed at this time, no complaints of pain. patient refused physical therapy. patient continues to refuse to get up, stating she is tired. will attempt at a later time.
[2019-06-13] MEDS ORDERED: KCL 40 mEq in 100 mL (PREMIX) 100 ML IV ONE (12:30)
[2019-06-13 12:31] VITALS: BP_SYST 115
[2019-06-13] MEDS ORDERED: POTASSIUM CHLORIDE 40 MEQ in NS 250 ML IV ONE (13:00)
--- NOTE | 2019-06-13 13:57 | NUR ---
rounds Patient sitting up in bed at this time, eating lunch, tolerating well. No nausea, no vomiting noted. No complaints of abdominal pain.
--- NOTE | 2019-06-13 13:58 | NUR ---
Dietitian Recommendations * Recommend CCHO, mechanical soft, finely chopped diet w/ Glucerna TID (ONS provides 660 kcal/day, 30 gm protein/day) [place], RD Please refer to Nutrition Assessment for details. Addendum: 06/13/19 at [address] Amended: Links added.
--- NOTE | 2019-06-13 15:39 | NUR ---
rounds patient sitting up in bed at this time, noted with incontinence of urine. Skin care provided. linens changed. No other needs at this time.
--- NOTE | 2019-06-13 16:35 | NUR ---
Discharge Planning: DCP faxed pt referral to [facility] (f [phone] p [phone]) DCP to follow up
--- NOTE | 2019-06-13 16:55 | NUR ---
skin care Treatment on skin tear on right lower extremity, done as ordered. No complaints of pain. No other needs at this time.
[2019-06-13 17:18] VITALS: BP_SYST 111
--- NOTE | 2019-06-13 18:27 | NUR ---
closing note patient resting in bed at this time, A/ox3. No complaints of pain. No SOB. Iv patent, intact, and infusing fluids as ordered. No adverse side effects noted. No infiltration noted. On seizure, safety, and aspiration precautions, padded side rails in place, HOB kept elevated, 3 canvas goods maker rails up, bed alarm on. call light within reach. patient in stable condition. All needs met.
--- NOTE | 2019-06-13 20:00 | NUR ---
recieved report from day nurse @ start of shift, patient alert/o/x/2-3 respirations even and unlabored, room air,rfa # 20g infusing d5ns @ 80 ml/hr, incontinent of b/b , kept clean and dry, c/o of generalized body aches and pains but refused pain medication, sr's up xs's 3, call light within reach, bed in low position, will continue to monitor, blood glucose results @ hs = 110, no coverage required.
[2019-06-13 20:34] VITALS: BP_SYST 99
[2019-06-13] MEDS: SIMVASTATIN 20 MG TABLET PO SCH (21:58)
[2019-06-13] MEDS: INSULIN LISPRO SLIDING SCALE 100 UNITS/ML VIAL (humaLOG) SUBCUT PRN (21:59)
[2019-06-14] MEDS: D5/0.45 NS 1,000 ML IV SCH ×2 (03:07→16:47)
[2019-06-14 04:00] VITALS: BP_SYST 114
--- NOTE | 2019-06-14 06:30 | NUR ---
blood glucose results = 90, will continue to monitor, resting quietly in bed with eyes closed,easily aroused.
[2019-06-14] MEDS: INSULIN LISPRO SLIDING SCALE 100 UNITS/ML VIAL (humaLOG) SUBCUT PRN (06:59)
--- NOTE | 2019-06-14 07:30 | NUR ---
Opening note patient resting in bed at this time, A/ox3. No complaints of pain. No SOB. Iv patent, intact, and infusing fluids as ordered. No adverse side effects noted. No infiltration noted. On seizure, safety, and aspiration precautions, padded side rails in place, HOB kept elevated, 3 gear hobber set up operator rails up, bed alarm on. call light within reach. patient in stable condition. will continue to monitor.
[2019-06-14 07:39] LABS: BASOPHILS # (AUTO) 0.1 K/uL (0.0-0.2); EOSINOPHILS # (AUTO) 0.2 K/uL (0.0-0.4); EOSINOPHILS % (AUTO) 3.1 % (0.0-4.0); HEMATOCRIT 35.8 % (36-48); LYMPHOCYTES # (AUTO) 1.9 K/uL (1.0-5.5); LYMPHOCYTES % (AUTO) 33.1 % (20.5-51.5); MEAN CORPUSCULAR HEMOGLOBIN 29 pg (27-31); MEAN CORPUSCULAR HGB CONC 34 % (32-36); MEAN CORPUSCULAR VOLUME 87 fL (79.0-98.0); MONOCYTES # (AUTO) 0.6 K/uL (0.0-1.0); MONOCYTES % (AUTO) 10.8 % (1.7-9.3); PLATELET COUNT (AUTO) 200 K/uL (130-430); RED BLOOD CELL COUNT(AUTO) 4.13 MIL/uL (4.2-6.2); RED CELL DISTRIBUTION WIDTH 17.4 % (9.0-15.0); WHITE BLOOD COUNT (AUTO) 5.8 K/uL (4.8-10.8)
[2019-06-14 07:54] LABS: ANION GAP 3 (5-15); CALCIUM 8.9 mg/dL (8.4-11.0); CHLORIDE 107 mmol/L (98-107); CREATININE 0.57 mg/dL (0.55-1.30); GLUCOSE 101 mg/dL (70-99); POTASSIUM 3.9 mmol/L (3.5-5.1); SODIUM SERUM 137 mmol/L (136-145); UREA NITROGEN, BLOOD 10 mg/dL (8-21)
[2019-06-14] MEDS: DOCUSATE SODIUM 100 MG CAPSULE PO SCH ×2 (08:20→20:05)
[2019-06-14] MEDS: levETIRAcetam 500 MG TABLET PO SCH ×2 (08:20→20:06)
[2019-06-14] MEDS: MULTIVITAMINS TAB 1 TABLET PO SCH (08:20)
[2019-06-14] MEDS: MIDODRINE HCL 5 MG TABLET (PROAMATINE) PO SCH ×2 (08:20→20:06)
[2019-06-14] MEDS: ASCORBIC ACID 500 MG TABLET PO SCH (08:20)
[2019-06-14] MEDS: ENOXAPARIN SODIUM 40 MG/0.4 ML SYRINGE SUBCUT SCH (08:21)
[2019-06-14] MEDS: CEFEPIME 1 GM in D5W 50 ML IV SCH ×2 (08:22→20:05)
--- NOTE | 2019-06-14 09:20 | NUR ---
medications All morning medications given as ordered. No adverse side effects. no nausea, no vomiting. Patient eating breakfast at this time.
[2019-06-14 10:15] VITALS: BP_SYST 109
--- NOTE | 2019-06-14 10:28 | NUR ---
Discharge Planning: DCP spoke to Darrell at [facility] (f [phone] p [phone]) pt accepted to 9A. Addendum: 06/14/19 at 1038 by Mima Marcelino DP DCP made nurse aware patient has a room.
[2019-06-14 11:06] VITALS: BP_SYST 102
--- NOTE | 2019-06-14 11:30 | NUR ---
rounds/ Physical therapy patient working with PT at this time. Patient took few steps with walker and maximum assistance. No other needs at this time.
[2019-06-14] MEDS ORDERED: MEGESTROL ACETATE 40 MG TABLET PO ONE (12:30)
--- NOTE | 2019-06-14 13:30 | NUR ---
skin care patient noted with incontinence of urine. Skin care provided. Linens changed, no other needs at this time.
--- NOTE | 2019-06-14 14:53 | NUR ---
rounds patient resting in bed at this time, no complaints of pain. IV patent, intact, and infusing fluids as ordered. no adverse side effects noted.
[2019-06-14 15:38] VITALS: BP_SYST 115
--- NOTE | 2019-06-14 16:57 | NUR ---
rounds Accu check done as ordered. No insulin coverage needed. No complaints of pain. No other needs at this time.
--- NOTE | 2019-06-14 18:24 | NUR ---
closing note patient resting in bed at this time, A/ox3. No complaints of pain. No SOB. Iv patent, intact, and infusing fluids as ordered. No adverse side effects noted. No infiltration noted. On seizure, safety, and aspiration precautions, padded side rails in place, HOB kept elevated, 3 construction laborer rails up, bed alarm on. call light within reach. patient in stable condition. All needs met.
[2019-06-14 20:00] VITALS: BP_SYST 101
[2019-06-14] MEDS: MEGESTROL ACETATE 40 MG TABLET PO SCH (20:06)
[2019-06-14] MEDS: SIMVASTATIN 20 MG TABLET PO SCH (20:07)
[2019-06-15] VITALS: BP_SYST 125
--- NOTE | 2019-06-15 00:45 | NUR ---
Patient in bed. No acute distress noted. Turned and repositioned q2. Will continue to monitor.
--- NOTE | 2019-06-15 07:15 | NUR ---
OPENING NOTES PATIENT AWAKE IN BED. NO ACUTE DISTRESS NOTED. CLEAN AND DRY. IV LINE INTACT AND PATENT, NO SIGNS OF INFILTRATION. FLUIDS RUNNING ORDERED PER MD. TOLERATING WELL. BED IN LOWEST AND LOCKED POSITION. BED ALARM ON. ALL NEEDS MET. CALL LIGHT IN REACH. FALL AND ASPIRATION PRECAUTIONS IN PLACE. UPDATED ON CARE PLAN. CONTINUE TO MONITOR.
[2019-06-15 08:00] VITALS: BP_SYST 105
[2019-06-15] MEDS: MULTIVITAMINS TAB 1 TABLET PO SCH (08:19)
[2019-06-15] MEDS: ASCORBIC ACID 500 MG TABLET PO SCH (08:19)
[2019-06-15] MEDS: levETIRAcetam 500 MG TABLET PO SCH ×2 (08:19→22:53)
[2019-06-15] MEDS: MIDODRINE HCL 5 MG TABLET (PROAMATINE) PO SCH ×2 (08:19→22:52)
[2019-06-15] MEDS: DOCUSATE SODIUM 100 MG CAPSULE PO SCH ×2 (08:19→22:52)
[2019-06-15] MEDS: MEGESTROL ACETATE 40 MG TABLET PO SCH ×2 (08:19→22:53)
--- NOTE | 2019-06-15 08:19 | NUR ---
ROUTINE MEDS ROUTINE MEDS ADMINISTERED ORDERED PER MD. EDUCATION GIVEN. TOLERATED WELL. NO ACUTE DISTRESS NOTED. ALL NEEDS MET. CALL LIGHT IN REACH. FALL AND ASPIRATION PRECAUTIONS IN PLACE. CONTINUE TO MONITOR.
[2019-06-15] MEDS: CEFEPIME 1 GM in D5W 50 ML IV SCH ×2 (08:20→22:55)
[2019-06-15] MEDS: ENOXAPARIN SODIUM 40 MG/0.4 ML SYRINGE SUBCUT SCH (08:21)
--- NOTE | 2019-06-15 10:19 | NUR ---
ROUNDS PT RESTING IN BED. CHEST RISE AND FALL NOTED. NONLABORED BREATHING. NO ACUTE DISTRESS NOTED. ALL NEEDS MET. FALL AND ASPIRATION PRECAUTIONS IN PLACE. CONTINUE TO MONITOR.
[2019-06-15 11:08] VITALS: BP_SYST 108
[2019-06-15] MEDS: D5/0.45 NS 1,000 ML IV SCH (11:57)
--- NOTE | 2019-06-15 12:00 | NUR ---
ROUNDS PT AWAKE AND ALERT IN BED. NONLABORED BREATHING NOTED. NO ACUTE DISTRESS NOTED. HELPED REPOSITION PT. TOLERATED WELL. ALL NEEDS MET. FALL AND ASPIRATION PRECAUTIONS IN PLACE. CONTINUE TO MONITOR.
--- NOTE | 2019-06-15 12:30 | NUR ---
LUNCH ASSISTED PT WITH LUNCH. PT COMPLAINED OF NAUSEA. ATTEMPTED TO ADMINISTER PRN ZOFRAN, PT REFUSED ZOFRAN AND DOES NOT BELIEVE IT WORKS, OFFERED 3X. PT REFUSED TO EAT LUNCH, OFFERED 3X. WILL NOTIFY
--- NOTE | 2019-06-15 13:05 | NUR ---
SEEN AND EXAMINED BY HOLD DISCHARGE AT THIS TIME DUE TO PATIENT IS SLEEPY, REFUSING TO EAT AND POSSIBLY CONSTIPATED. MD WILL PUT IN ORDERS. CONT TO MONITOR
--- NOTE | 2019-06-15 13:13 | NUR ---
SUPPOSITORY GIVEN SUPPOSITORY GIVEN ORDERED PER MD. EDUCATION GIVEN. TOLERATED WELL. NO ACUTE DISTRESS NOTED. ALL NEEDS MET. FALL AND ASPIRATION PRECAUTIONS IN PLACE. REPOSITIONED FOR COMFORT. CONTINUE TO MONITOR.
[2019-06-15] MEDS ORDERED: BISACODYL 10 MG/SUPPOSITORY RC PRN (13:15)
--- NOTE | 2019-06-15 14:56 | NUR ---
DC Planning: per MILAGROS Ceja and RN Yasmine's note @ 1144: SEEN AND EXAMINED BY HOLD DISCHARGE AT THIS TIME DUE TO PATIENT IS SLEEPY, REFUSING TO EAT AND POSSIBLY CONSTIPATED. MD WILL PUT IN ORDERS. CONT TO MONITOR
[2019-06-15 15:34] VITALS: BP_SYST 138
--- NOTE | 2019-06-15 17:37 | NUR ---
ACCUCHECK ACCUCHECK DONE. RESULT 99 MG/DL. TEACHING GIVEN ON DIABETES. NO S/S OF HYPO/HYPERGLYCEMIA, TOLERATED WELL. NO ACUTE DISTRESS NOTED. ALL NEEDS MET. CALL LIGHT IN REACH. FALL AND ASPIRATION PRECAUTIONS IN PLACE. FREQUENT VISUAL CHECKS. CONTINUE TO MONITOR.
--- NOTE | 2019-06-15 18:00 | NUR ---
DINNER REPOSITIONED PT BEFORE DINNER. ASSISTED PT TO EAT, REFUSED TO EAT. EXPLAINED RISKS, OFFERED 3X, CONTINUED TO REFUSE.
--- NOTE | 2019-06-15 18:58 | NUR ---
CLOSING NOTE PT RESTING IN BED. CHEST RISE AND FALL NOTED. NONLABORED BREATHING NOTED. NO ACUTE DISTRESS NOTED. IV LINE INTACT AND PATENT, NO SIGNS OF INFILTRATION. PATIENT CLEAN AND DRY. BED IN LOWEST AND LOCKED POSITION. ALL NEEDS MET. CALL LIGHT IN REACH. FALL AND ASPIRATION PRECAUTIONS IN PLACE. WILL ENDORSE TO NOC NURSE.
--- NOTE | 2019-06-15 19:30 | NUR ---
opening note Received patient awake, AOx3, resting in bed, no s/sx of distress, bed locked in lowest position, bed alarm on and call light w/in reach. updated board and reviewed plan of care.
[2019-06-15 20:00] VITALS: BP_SYST 131
--- NOTE | 2019-06-15 22:52 | NUR ---
Medications due medications given
[2019-06-15] MEDS: SIMVASTATIN 20 MG TABLET PO SCH (22:53)
--- NOTE | 2019-06-16 00:10 | NUR ---
RN rounds patient c/o noise and was offered earplugs. Turned and repositioned.
[2019-06-16] MEDS: D5/0.45 NS 1,000 ML IV SCH (01:22)
--- NOTE | 2019-06-16 01:28 | NUR ---
IVF IVF fluids empty; hung new bag and infusing as ordered at 60 ml/hr. Infusing well, patient tolerating.
[2019-06-16 01:44] VITALS: BP_SYST 104
--- NOTE | 2019-06-16 04:15 | NUR ---
Resting patient resting w/eyes closed, nonlabored breathing. IVF infusing well
--- NOTE | 2019-06-16 07:10 | NUR ---
closing note Patient fingerstick BGtest done w/ result of 87mg/ dL no coverage due. Needs met throughout shift, IVF infusing well. will endorse report
--- NOTE | 2019-06-16 07:15 | NUR ---
Opening Note Received bedside report from endorsing RN for continuation of care. Received patient resting in bed, arousable to voice and denies any SOB or pain. No signs or symptoms of acute distress noted. Bed locked in lowest position, bed alarm on, and call light within reach. Education provided on use of call light and patient verbalized understanding. Fall and safety precautions in place.
[2019-06-16 08:00] VITALS: BP_SYST 119
[2019-06-16 08:05] LABS: BASOPHILS # (AUTO) 0.1 K/uL (0.0-0.2); BASOPHILS % (AUTO) 1.1 % (0.0-2.0); EOSINOPHILS # (AUTO) 0.2 K/uL (0.0-0.4); EOSINOPHILS % (AUTO) 3.6 % (0.0-4.0); HEMATOCRIT 37.4 % (36-48); HEMOGLOBIN 12.4 g/dL (12.0-16.0); LYMPHOCYTES # (AUTO) 1.9 K/uL (1.0-5.5); LYMPHOCYTES % (AUTO) 29.9 % (20.5-51.5); MEAN CORPUSCULAR HEMOGLOBIN 29 pg (27-31); MEAN CORPUSCULAR HGB CONC 33 % (32-36); MEAN CORPUSCULAR VOLUME 87 fL (79.0-98.0); MONOCYTES # (AUTO) 0.8 K/uL (0.0-1.0); MONOCYTES % (AUTO) 12.3 % (1.7-9.3); NEUTROPHILS # (AUTO) 3.3 K/uL (1.8-7.7); NEUTROPHILS % (AUTO) 53.1 % (40.0-70.0); PLATELET COUNT (AUTO) 204 K/uL (130-430); RED BLOOD CELL COUNT(AUTO) 4.28 MIL/uL (4.2-6.2); RED CELL DISTRIBUTION WIDTH 17.4 % (9.0-15.0); WHITE BLOOD COUNT (AUTO) 6.3 K/uL (4.8-10.8)
[2019-06-16 08:32] LABS: ALANINE AMINOTRANSFERASE 109 U/L (12-78); ALBUMIN 1.8 g/dL (3.4-4.8); ANION GAP 4 (5-15); ASPARTATE AMINOTRANSFERASE 42 U/L (10-37); CALCIUM 8.9 mg/dL (8.4-11.0); CHLORIDE 109 mmol/L (98-107); CREATININE 0.52 mg/dL (0.55-1.30); GLUCOSE 86 mg/dL (70-99); POTASSIUM 3.6 mmol/L (3.5-5.1); SODIUM SERUM 138 mmol/L (136-145); TOTAL BILIRUBIN 0.3 mg/dL (0.0-1.0); UREA NITROGEN, BLOOD 7 mg/dL (8-21)
[2019-06-16] MEDS: CEFEPIME 1 GM in D5W 50 ML IV SCH (08:53)
[2019-06-16] MEDS: MIDODRINE HCL 5 MG TABLET (PROAMATINE) PO SCH (08:54)
[2019-06-16] MEDS: levETIRAcetam 500 MG TABLET PO SCH (08:54)
[2019-06-16] MEDS: DOCUSATE SODIUM 100 MG CAPSULE PO SCH (08:54)
[2019-06-16] MEDS: MULTIVITAMINS TAB 1 TABLET PO SCH (08:54)
[2019-06-16] MEDS: ASCORBIC ACID 500 MG TABLET PO SCH (08:54)
[2019-06-16] MEDS: MEGESTROL ACETATE 40 MG TABLET PO SCH (08:54)
[2019-06-16] MEDS ORDERED: MODAFINIL 100 MG TABLET (PROVIGIL) PO SCH (09:00)
--- NOTE | 2019-06-16 09:55 | NUR ---
Spoke with patient's son on the phone. Education provided and all questions answered clearly.
--- NOTE | 2019-06-16 10:59 | NUR ---
Dr. Domingo at bedside examining patient. New orders received.
--- NOTE | 2019-06-16 11:17 | NUR ---
Discharge Planning: Pt has order to DC to SNF; [facility] placed call to [facility] ([phone]) and spoke to Bertha who confirmed pt can return to room 9A. [facility] has arranged transportation with [facility] ([phone]); picking belt operator at 2:00pm. [facility] has placed packet at nurses station.
[2019-06-16 11:53] VITALS: BP_SYST 104
[2019-06-16 13:08] VITALS: BP_SYST 120
--- NOTE | 2019-06-16 13:26 | NUR ---
Nutrition F/U RD reviewed pt's current EMR including diet Hx, physician notes, nursing notes, pertinent labs/meds/procedures, care trends and care activity. Current Diet Order: CCHO Mechanical soft, finely chopped diet w/ Glucerna TID x 2 days Subjective information: Pt seen, appeared to be very lethargic. Per RN notes, pt w/ very poor appetite. Bed scale wt: 169.8#. May be skewed d/t multiple blankets. Last BM 06/16, PO intake remains negligible (8% average of 3 meals x 2 refusal 06/15). PO intake continues into >2 weeks. Consider alternative route of nutrition support if PO intake remains poor. Current PO intake: Negligible (8% average of 3 meals x 2 refusal.) Estimated Energy Expenditure (kcals/day) 3378-1265 kcal/day (30-35 kcal/kg CBW for sepsis) Estimated Protein Required (g/day) 108-144 gm/day (1.5-2 ml/kg CBW for sepsis) Estimated Fluid Required (l/day) 1.8-2.2 L/day (25-30 ml/kg CBW for geriatric maintenance) Problem/Etiology/Signs/Symptoms Increased nutritional needs related to metabolic demands as evidenced by estimated. (*ongoing) Inadequate protein-calorie intake r/t poor appetite AEB PO intake meeting <30% of est needs for >2 weeks. (*new) Expected Outcomes/Goals - Monitor appetite and PO intakes w/ goal of pt meeting at least 75% of estimated nutritional needs, labs trending WNL, normal GI function, and skin integrity/wt maintenance Dietitian Recommendations * Continuing CCHO, mechanical soft, finely chopped diet w/ Glucerna TID (ONS provides 660 kcal/day, 30 gm protein/day) * Consider alternate route of nutrition support. Follow Up High Risk: F/U in 2-3days
--- NOTE | 2019-06-16 13:32 | NUR ---
Dietitian Recommendations * Continuing CCHO, mechanical soft, finely chopped diet w/ Glucerna TID (ONS provides 660 kcal/day, 30 gm protein/day) * Consider alternate route of nutrition support. Please see Nutrition F/U note for details. MARTHA, RD
--- NOTE | 2019-06-16 14:25 | NUR ---
Endorsed report to Mima MURDOCK via telephone call at [facility] using SBAR approach for continuation of care.
[2019-06-16] MEDS ORDERED: SULFAMETHOXAZOLE/TRIMETHOPR DS 1 TABLET PO SCH (21:00)
== END 2019-06-16 14:25 | DRG 689 ==
LOC: SED 16:49 → STU 18:46
PROVIDERS: ADMIT Internal Medicine; ATTEND Internal Medicine
DX: N39.0 Urinary tract infection, site not specified (principal); E43 Unspecified severe protein-calorie malnutrition; I42.9 Cardiomyopathy, unspecified; I11.0 Hypertensive heart disease with heart failure; I48.0 Paroxysmal atrial fibrillation; E11.9 Type 2 diabetes mellitus without complications; E78.00 Pure hypercholesterolemia, unspecified; E78.5 Hyperlipidemia, unspecified; G40.909 Epilepsy, unspecified, not intractable, without status epilepticus; I50.9 Heart failure, unspecified; I49.5 Sick sinus syndrome; Z66 Do not resuscitate; E86.0 Dehydration; M81.0 Age-related osteoporosis without current pathological fracture; Z90.12 Acquired absence of left breast and nipple; Z95.0 Presence of cardiac pacemaker; Z98.1 Arthrodesis status; Z74.01 Bed confinement status; Z79.899 Other long term (current) drug therapy
CPT/HCPCS: 36415; 71045; 80048; 80053; 81000-TC; 82962; 83605; 83735-TC; 83880; 84484; 85025; 87040-TC; 87081; 87086; 87186-TC; 92610-GN; 93005; 96360; 96361; 97110-GP; 97530-GP; 99291; G0378; J0692; J0696; J1650; J2405; J3480; J7050; J7060

== ENCOUNTER 2019-07-15 17:22 | Inpatient (IN) | payer OTHER ==
[~2019-07-15] VITALS: Ht 162.6 cm; Wt 72.2 kg
[~2019-07-15 17:22] MED LIST changes: -AMI200 PO; -CARV6.2554 PO; -CEPH250C PO; +DEXT30DR6 EACH EYE; -LEVO25TA2 PO; -LISI5TAB PO; -MINE3.5O OP; -MOM PO; -ONDA4TAB5 PO; -PROP10DR2 EACH EYE
[2019-07-15 18:29] VITALS: BP_SYST 114
--- NOTE | 2019-07-15 18:32 | NUR ---
Patient triaged and placed in ER HALLWAY. VSS and patient appears in no acute distress at this time. Accompanied by BLS, awaiting available bed, and MD notified of need for MSE.
[2019-07-15] MEDS ORDERED: NS 500 ML IV ONE (18:45)
[2019-07-15 19:25] LABS: BASOPHILS # (AUTO) 0.1 K/uL (0.0-0.2); BASOPHILS % (AUTO) 0.7 % (0.0-2.0); EOSINOPHILS % (AUTO) 0.1 % (0.0-4.0); HEMOGLOBIN 13.3 g/dL (12.0-16.0); LYMPHOCYTES # (AUTO) 1.5 K/uL (1.0-5.5); MEAN CORPUSCULAR HEMOGLOBIN 28 pg (27-31); MEAN CORPUSCULAR HGB CONC 32 % (32-36); MEAN CORPUSCULAR VOLUME 87 fL (79.0-98.0); MONOCYTES # (AUTO) 0.9 K/uL (0.0-1.0); MONOCYTES % (AUTO) 8.5 % (1.7-9.3); NEUTROPHILS # (AUTO) 7.6 K/uL (1.8-7.7); NEUTROPHILS % (AUTO) 75.7 % (40.0-70.0); PLATELET COUNT (AUTO) 217 K/uL (130-430); RED BLOOD CELL COUNT(AUTO) 4.72 MIL/uL (4.2-6.2); RED CELL DISTRIBUTION WIDTH 17.4 % (9.0-15.0); WHITE BLOOD COUNT (AUTO) 10.1 K/uL (4.8-10.8)
[2019-07-15 19:38] LABS: ANION GAP 5 (5-15); CALCIUM 10.1 mg/dL (8.4-11.0); CHLORIDE 103 mmol/L (98-107); CREATININE 0.61 mg/dL (0.55-1.30); GLUCOSE 104 mg/dL (70-99); POTASSIUM 3.3 mmol/L (3.5-5.1); SODIUM SERUM 138 mmol/L (136-145); UREA NITROGEN, BLOOD 38 mg/dL (8-21)
--- NOTE | 2019-07-15 19:50 | NUR ---
Placed in room 7 . Placed on child monitor, blood pressure machine and pulse oximeter. To gown for exam. Side rails up.
[2019-07-15 19:57] LABS: ALANINE AMINOTRANSFERASE 397 U/L (12-78); ALBUMIN 1.8 g/dL (3.4-4.8); ASPARTATE AMINOTRANSFERASE 101 U/L (10-37); TOTAL BILIRUBIN 1.4 mg/dL (0.0-1.0)
--- NOTE | 2019-07-15 20:02 | NUR ---
Patient was BIB from [facility] for poor PO intake. Per EMS, pt has not been eating for the last few days. Pt is AAO x 3, per EMS. Pt complaining of neck and back pain. NO other injuries/complaints per patient or noted.
--- NOTE | 2019-07-15 20:11 | NUR ---
ER Dr. Azevedo at bedside examining patient.
[2019-07-15 20:17] LABS: INR 1.1 (0.8-1.2)
--- NOTE | 2019-07-15 20:33 | NUR ---
# 14 FR In and Out catheter with use of sterile technique. Immediate return of 150 ml dark yellow cloudy urine noted. Urine sample collected and sent to lab. Pt tolerated procedure well.
[2019-07-15] MEDS ORDERED: PIPERACILLIN/TAZO 3.375 GM in NS 50 ML IV ONE (21:15)
[2019-07-15] MEDS ORDERED: MORPHINE 2 MG/ML INJ. SYRINGE IVP ONE (21:15)
[2019-07-15 21:39] LABS: BILIRUBIN,URINE 1+ (NEGATIVE); BLOOD, URINE 2+ (NEGATIVE); CLARITY/URINE TURBID (CLEAR); COLOR,URINE YELLOW (YELLOW); GLUCOSE,URINE NEGATIVE (NEGATIVE); KETONES,URINE 1+ (NEGATIVE); LEUKOCYTE ESTERASE ,URINE 3+ (NEGATIVE); NITRITE, URINE POSITIVE (NEGATIVE); PROTEIN URINE 1+ (NEGATIVE)
[2019-07-15] MEDS ORDERED: PIPERACILLIN/TAZOBACTAM 3.375 GM/VIAL (ZOSYN) IV ONE (21:41)
[2019-07-15 22:14] LABS: WBC,URINE >100 /HPF (0-3)
[2019-07-15 22:15] LABS: BACTERIA,URINE MANY /HPF (None Seen); CALCIUM OXALATE CRYSTALS,UR 0-10 /HPF (None Seen); MUCUS,URINE None Seen /LPF (None Seen)
[2019-07-15] MEDS ORDERED: ACETAMINOPHEN 500 MG TABLET PO PRN (22:45)
[2019-07-15] MEDS ORDERED: cloNIDine HCL 0.1 MG TABLET PO PRN (23:00)
[2019-07-15] MEDS ORDERED: POTASSIUM CHLORIDE 20 MEQ TAB.PRT.SR PO ONE (23:00)
[2019-07-15] MEDS ORDERED: ZOLPIDEM TARTRATE 5 MG TABLET PO PRN (23:00)
[2019-07-15] MEDS ORDERED: AZITHROMYCIN 500 MG in NS 250 ML IV ONE (23:00)
[2019-07-15] MEDS ORDERED: DILTIAZEM HCL 25 MG/5 ML VIAL IVP PRN (23:00)
[2019-07-15] MEDS ORDERED: ACETAMINOPHEN 325 MG TABLET PO PRN (23:00)
[2019-07-15] MEDS ORDERED: ONDANSETRON HCL 4 MG/2 ML VIAL IVP PRN (23:00)
[2019-07-15] MEDS ORDERED: AZITHROMYCIN 500 MG/VIAL (ZITHROMAX) IV ONE (23:14)
[2019-07-15 23:47] VITALS: BP_SYST 114
--- NOTE | 2019-07-16 00:21 | NUR ---
Patient will be admitted to care of Dr. Domingo. Admitted to Med Surg unit. Will go to room 116 B. Belongings list completed. Complete and up to date summary report printed. SBAR report to be given at bedside with opportunity for questions.
--- NOTE | 2019-07-16 00:22 | NUR ---
Transfer to [facility]. IV present no sign or symptom of infiltration.
--- NOTE | 2019-07-16 01:05 | NUR ---
ADMISSION NOTE Received patient from ER via gurney under the care of Dr. Domingo. Patient admitted with diagnosis of Abdominal Pain and UTI . Patient is awake, alert, oriented X 2. Patient oriented to hospital room, call light, toileting, pain management but no answer. Call light within reach. Will continue to monitor patient condition.
[2019-07-16 01:40] VITALS: BP_SYST 100
[2019-07-16] MEDS: D5/0.45 NS 1,000 ML IV SCH ×3 (02:17→17:14)
--- NOTE | 2019-07-16 02:19 | NUR ---
CONSULT: CONSULT CALLED FOR DR. MACK I SPOKE WITH ORALIA MARCUS REASON FOR CONSULT: ABD PSIN AND UTI REQUESTING CONSULT: DR. MCKEON TIRE CLASSIFIER PHONE NUMBER: [phone] Addendum: 07/16/19 at 0225 by Juana Castrejon HI/ DR. ELLIOTT IS BLOCK SETTER GYPSUM FOR DR. MACK Addendum: 07/16/19 at 0248 by Juana Castrejon HI/ REASON FOR CONSULT: ABDOMINAL PAIN AND UTI
[2019-07-16] MEDS: MORPHINE 2 MG/ML INJ. SYRINGE IVP PRN ×2 (02:45→12:01)
--- NOTE | 2019-07-16 02:45 | NUR ---
C/O SHARP LOWER BACK PAIN SCALE 9/10.MORPHINE 2MG IVP ADM.
--- NOTE | 2019-07-16 03:15 | NUR ---
FOUND RESTING COMFORTABLY IN NO ACUTE DISTRESS.
[2019-07-16 04:00] VITALS: BP_SYST 119
--- NOTE | 2019-07-16 05:00 | NUR ---
RESTING COMFORTABLY IN NO ACUTE DISTRESS.
[2019-07-16] MEDS ORDERED: PIPERACILLIN/TAZOBACTAM 4.5 GM/VIAL (ZOSYN) IV ONE (06:05)
[2019-07-16] MEDS: PIPERACILLIN/TAZO 4.5 GM in D5W 100 ML IV SCH ×3 (06:21→22:32)
--- NOTE | 2019-07-16 06:45 | NUR ---
ENDORSED ASLEEP IN NO ACUTE DISTRESS.IVF INFUSING WELL.SAFETY MAINTAINED.
--- NOTE | 2019-07-16 07:04 | NUR ---
Nutrition Update Anup Scale 13 noted. Pt admitted for Abd pain and UTI Diet: Full liquid BMI: 24.1 kg/m2 RD to follow per nutrition care standards.
[2019-07-16 07:11] LABS: ALANINE AMINOTRANSFERASE 340 U/L (12-78); ALBUMIN 1.5 g/dL (3.4-4.8); ANION GAP 4 (5-15); CALCIUM 9.7 mg/dL (8.4-11.0); CHLORIDE 107 mmol/L (98-107); CREATININE 0.57 mg/dL (0.55-1.30); GLUCOSE 114 mg/dL (70-99); POTASSIUM 3.1 mmol/L (3.5-5.1); SODIUM SERUM 138 mmol/L (136-145); TOTAL BILIRUBIN 1.7 mg/dL (0.0-1.0); UREA NITROGEN, BLOOD 32 mg/dL (8-21)
[2019-07-16 07:23] LABS: BASOPHILS # (AUTO) 0.1 K/uL (0.0-0.2); BASOPHILS % (AUTO) 0.6 % (0.0-2.0); EOSINOPHILS % (AUTO) 0.1 % (0.0-4.0); LYMPHOCYTES # (AUTO) 1.3 K/uL (1.0-5.5); LYMPHOCYTES % (AUTO) 11.4 % (20.5-51.5); MEAN CORPUSCULAR HEMOGLOBIN 28 pg (27-31); MEAN CORPUSCULAR HGB CONC 33 % (32-36); MEAN CORPUSCULAR VOLUME 87 fL (79.0-98.0); MONOCYTES # (AUTO) 0.9 K/uL (0.0-1.0); MONOCYTES % (AUTO) 7.4 % (1.7-9.3); NEUTROPHILS # (AUTO) 9.3 K/uL (1.8-7.7); NEUTROPHILS % (AUTO) 80.5 % (40.0-70.0); PLATELET COUNT (AUTO) 209 K/uL (130-430); RED BLOOD CELL COUNT(AUTO) 4.26 MIL/uL (4.2-6.2); WHITE BLOOD COUNT (AUTO) 11.6 K/uL (4.8-10.8)
--- NOTE | 2019-07-16 07:40 | NUR ---
Initial Notes- In bed, still asleep, arousable. No acute distress noted. will continue to monitor.
[2019-07-16 08:00] VITALS: BP_SYST 106
[2019-07-16 08:19] LABS: ASPARTATE AMINOTRANSFERASE 163 U/L (10-37)
--- NOTE | 2019-07-16 08:30 | NUR ---
notes- Pt is responsive and open her eyes, medication was crushed and given with apple sauce, able to swallow but with some difficulty. No distress noted. Repositioned, remain on O2 2L. will monitor.
[2019-07-16] MEDS: MULTIVITAMINS TAB 1 TABLET PO SCH (08:31)
[2019-07-16] MEDS: PANTOPRAZOLE SODIUM 40 MG/VIAL (PROTONIX) IVP SCH (08:31)
[2019-07-16] MEDS: DOCUSATE SODIUM 100 MG CAPSULE PO SCH ×2 (08:31→21:00)
[2019-07-16] MEDS: PEG 400/HYPROMELLOSE/GLYCERIN 15 ML DROPS EACH EYE SCH ×5 (09:00→21:06)
[2019-07-16] MEDS ORDERED: levETIRAcetam 500 MG TABLET PO SCH (09:00)
[2019-07-16] MEDS: ALBUTEROL SULFATE 0.083% 2.5 MG/3 ML VIAL.NEB INH PRN (10:15)
[2019-07-16] MEDS: IPRATROPIUM BROM 0.5 MG/2.5 ML VIAL.NEB (ATROVENT) INH PRN (10:15)
--- NOTE | 2019-07-16 11:00 | NUR ---
Notes- aving breathing treatment at this time.
--- NOTE | 2019-07-16 11:30 | NUR ---
MD ROUNDS -Seen by Dr. Domingo at bedside
[2019-07-16] MEDS ORDERED: IBUPROFEN 600 MG TABLET PO PRN (12:00)
[2019-07-16] MEDS ORDERED: KCL 40 mEq in 100 mL (PREMIX) 100 ML IV ONE (12:00)
--- NOTE | 2019-07-16 12:41 | NUR ---
Notes- Asleep, no acute distress noted. waiting for speech therapist to do swallow eval.
[2019-07-16 12:56] VITALS: BP_SYST 100
--- NOTE | 2019-07-16 13:14 | NUR ---
Dietitian Recommendations *Await swallow eval results and EXTERIOR DOOR INSTALLER rec. *Once diet is advanced, add [place] BID for wound healing. Please see Nutritional Assessment for details. MARTHA, RD
--- NOTE | 2019-07-16 13:40 | NUR ---
SWALLOW EVAL LEFT MESSAGE TO [facility] SPEECH THERAPY TO SEE PT. FOR SWALLOW EVAL.
--- NOTE | 2019-07-16 16:06 | NUR ---
Notes- Seen by wound care nurse, resting at tis time. complain of back pain. repositioned for comfort. IVF infusing well.
--- NOTE | 2019-07-16 16:06 | NUR ---
WOUND EVALUATION: Wound Consult received from Dr. Domingo. Thank you Dr. Domingo for the consult. Patient received in a [place] Bed with an Atmos-Air 9000 mattress, awake, lethargic, confused. Patient is unable to turn in bed independently. Anup Score is a 13. Past Medical History: Hypercholesterolemia, Seizure disorder, Atrial Fibrillation, Asthma, history of CVA, COPD, status post Pacemaker, Mastectomy and gallbladder surgery. Recent Labs: WBC 11.6, RBC 4.26, hemoglobin 12.0, hematocrit 37.0, potassium 3.1, BUN 32, creatinine 0.57, glucose 114, alkaline phosphatase 300, serum total protein 4.4, albumin 1.5, PTT 24.5. Microbiology: Blood culture results 2 in progress. Urine culture results in progress. MRSA screen results in progress. Intrinsic factors that delay wound healing: Asthma, COPD, severe hypoalbuminemia. Extrinsic factors that delay wound healing: Decreased mobility. Wound Assessment: 1. Sacral area: Unstageable pressure ulcer, present on admission. Wound bed has 70% black skin/tissue, 20% pale yellow tissue, 10% red tissue. No odor, scant yellow drainage. Periwound moist. Surrounding tissue has blanchable red erythematous. Wound measures 6.5 cm x 11.2 cm. Recommend: Cleanse wound with normal saline. Apply moisture barrier cream to gerardo-wound. Apply Venelex ointment to wound bed. Cover with Sacral foam dressing. Perform wound care daily, and as needed for dressing soiling or dislodgement. 2. Left upper extremity: Ecchymosis, present on admission. 3. Right upper extremity: Ecchymosis, present on admission. Recommend: No dressings needed. Continue to monitor sites every shift. Also recommend: Reposition patient [id number] only every 2 hours with pillow support and off-load pressure areas with pillows for pressure re-distribution. Offload, elevate and float bilateral heels with pillows. Perform skin care and monitor skin integrity Q shift. Use moisture barrier cream on buttocks and other moisture susceptible areas QID and as needed for soiling. Place patient on a low air-loss mattress.
--- NOTE | 2019-07-16 17:08 | NUR ---
S.T. SWALLOW EVAL SWALLOW EVAL COMPLETED. PT PRESENTS W/ PT PRESENTS W/ SEV PRE-ORAL, ORAL, AND PHARYNGEAL DYSPHAGIA CHARACTERIZED BY DECREASED INTEREST FOR P.O., DECREASED BOLUS COMPOSER TEACHING ARTIST, SPITTING OUT P.O. TRIALS, ABSENT BOLUS MANIPULATION, AND ABSENT SWALLOW.PT IS AT HIGH RISK FOR ASPIRATION, MALNUTRITION, AND DEHYDRATION. REC: NPO - ALTERNATIVE METHOD FOR FEEDING. NURSE VIDAL NOTIFIED.
[2019-07-16 17:25] VITALS: BP_SYST 102
--- NOTE | 2019-07-16 18:16 | NUR ---
Notes- Resting, keep NPO, pt did not pass swallow eval at this time. repositioned. No acute distress noted. IVF infusing well. Will endorse
[2019-07-16 19:55] VITALS: BP_SYST 97
--- NOTE | 2019-07-16 19:55 | NUR ---
Opening notes Pt asleep, arousable. VSS, afebrile. O2 2L via NC satting at 97%. Call light within reach. Safety maintained. Bed low, locked, siderails x3 up. To monitor.
[2019-07-16] MEDS: ASCORBIC ACID 500 MG TABLET PO SCH (21:00)
[2019-07-16] MEDS: levETIRAcetam 500 MG in NS 100 ML IV SCH (21:06)
--- NOTE | 2019-07-16 23:25 | NUR ---
Rounds/Wound care Pt asleep, easily arousable. Pt incontinent of urine. Pericare given. Sacral dressing loose. Cleansed with NS, patted dry and applied Venelex ointment and secured with sacral optifoam dressing. Pt repositioned on low air loss mattress. Pt tolerated well. To monitor.
[2019-07-16] MEDS: BALSAM PERU/CASTOR OIL 60 GM OINT...G. TP SCH (23:30)
[2019-07-17 00:47] VITALS: BP_SYST 105
[2019-07-17] MEDS: PIPERACILLIN/TAZO 4.5 GM in D5W 100 ML IV SCH ×3 (05:54→21:07)
[2019-07-17] MEDS: D5/0.45 NS 1,000 ML IV SCH (05:57)
--- NOTE | 2019-07-17 06:00 | NUR ---
Closing notes Pt asleep, easily arousable. No s/s distress noted. IV antibiotic administered L. AC 22G no s/s infiltration. Sacral dressing C/D/I. Pt incontinent of urine pericare provided. Pt repositioned. Safety maintained. Bed alarm on. To endorse to AM nurse.
[2019-07-17 07:12] LABS: BASOPHILS # (AUTO) 0.1 K/uL (0.0-0.2); BASOPHILS % (AUTO) 0.8 % (0.0-2.0); EOSINOPHILS # (AUTO) 0.1 K/uL (0.0-0.4); EOSINOPHILS % (AUTO) 0.9 % (0.0-4.0); HEMATOCRIT 35.1 % (36-48); HEMOGLOBIN 11.7 g/dL (12.0-16.0); LYMPHOCYTES # (AUTO) 1.6 K/uL (1.0-5.5); LYMPHOCYTES % (AUTO) 16.9 % (20.5-51.5); MEAN CORPUSCULAR HEMOGLOBIN 29 pg (27-31); MEAN CORPUSCULAR HGB CONC 33 % (32-36); MEAN CORPUSCULAR VOLUME 86 fL (79.0-98.0); MONOCYTES # (AUTO) 0.7 K/uL (0.0-1.0); MONOCYTES % (AUTO) 8.1 % (1.7-9.3); NEUTROPHILS # (AUTO) 6.8 K/uL (1.8-7.7); NEUTROPHILS % (AUTO) 73.3 % (40.0-70.0); PLATELET COUNT (AUTO) 222 K/uL (130-430); RED BLOOD CELL COUNT(AUTO) 4.07 MIL/uL (4.2-6.2); RED CELL DISTRIBUTION WIDTH 17.2 % (9.0-15.0); WHITE BLOOD COUNT (AUTO) 9.2 K/uL (4.8-10.8)
--- NOTE | 2019-07-17 07:15 | NUR ---
received patient alert awake x 1 and confused. lungs bilaterally with crackles and diminished at the bases. abdomen soft and non distended. has iv access on the left forearm #22 with iv fluids of D5 1/2NS at 80cc/hr infusing on well. bed low position, alarmed and locked. will continue to monitor patients status. has oxygen 2lnc. vitals signs stable. afebrile. has bilateral scds in placed. bruise on the rt forearm. dry/intact. continue to monitor patients status.
[2019-07-17 07:44] LABS: ALANINE AMINOTRANSFERASE 256 U/L (12-78); ALBUMIN 1.4 g/dL (3.4-4.8); ANION GAP 6 (5-15); ASPARTATE AMINOTRANSFERASE 82 U/L (10-37); CALCIUM 8.9 mg/dL (8.4-11.0); CHLORIDE 107 mmol/L (98-107); CREATININE 0.55 mg/dL (0.55-1.30); GLUCOSE 113 mg/dL (70-99); POTASSIUM 3.5 mmol/L (3.5-5.1); SODIUM SERUM 138 mmol/L (136-145); UREA NITROGEN, BLOOD 18 mg/dL (8-21)
[2019-07-17 08:17] VITALS: BP_SYST 101; BP_SYST 164
[2019-07-17] MEDS: DOCUSATE SODIUM 100 MG CAPSULE PO SCH ×2 (09:00→21:00)
[2019-07-17] MEDS: ASCORBIC ACID 500 MG TABLET PO SCH ×2 (09:00→21:00)
[2019-07-17] MEDS: MULTIVITAMINS TAB 1 TABLET PO SCH (09:00)
--- NOTE | 2019-07-17 09:00 | NUR ---
other due medication given. made comfortable.
[2019-07-17] MEDS: levETIRAcetam 500 MG in NS 100 ML IV SCH ×2 (09:08→21:07)
[2019-07-17] MEDS: PANTOPRAZOLE SODIUM 40 MG/VIAL (PROTONIX) IVP SCH (09:18)
[2019-07-17] MEDS: PEG 400/HYPROMELLOSE/GLYCERIN 15 ML DROPS EACH EYE SCH ×4 (09:18→21:06)
--- NOTE | 2019-07-17 09:23 | NUR ---
due medication given as ordered.
--- NOTE | 2019-07-17 09:26 | NUR ---
suction once a while. respiratory treatment given as ordered prn.
[2019-07-17] MEDS: IPRATROPIUM BROM 0.5 MG/2.5 ML VIAL.NEB (ATROVENT) INH PRN (09:51)
[2019-07-17] MEDS: ALBUTEROL SULFATE 0.083% 2.5 MG/3 ML VIAL.NEB INH PRN (09:51)
--- NOTE | 2019-07-17 11:00 | NUR ---
gerardo care done by Sherri Guy and turn to sides. made comfortable.
[2019-07-17 11:06] LABS: FOLATE (FOLIC ACID) 6.3 ng/mL (>3.0)
[2019-07-17] MEDS ORDERED: INSULIN REGULAR, HUMAN 100 UNITS/ML, 10 ML VIAL (humuLIN R) SUBCUT PRN (11:30)
[2019-07-17] MEDS ORDERED: *PPN PER PHARMACY XX PRN (11:30)
--- NOTE | 2019-07-17 11:34 | NUR ---
patient placed on heart monitor as per Dr Domingo due to low heart rate.
[2019-07-17 12:01] LABS: PHOSPHORUS 1.8 mg/dL (2.7-4.5)
[2019-07-17 13:13] VITALS: BP_SYST 111
--- NOTE | 2019-07-17 16:28 | NUR ---
TURN TO SIDES. MADE COMFORTABLE. HOB ELEVATED.
[2019-07-17 17:13] VITALS: BP_SYST 116
--- NOTE | 2019-07-17 17:43 | NUR ---
latest bs 123 mg/dl. no coverage given at this time.
--- NOTE | 2019-07-17 18:33 | NUR ---
CLOSING. PATIENT ASLEEP AND REFUSED TO HAVE CLEAR LIQUID TONITE. PATIENT CONFUSED. ALL NEEDS ARE MET. HAS NEW IV ACCESS ON THE RT FOREARM #22. WITH SAME IV FLUIDS. BED LOW POSITION, ALARMED AND LOCKED. HOB ELEVATED. NO SOB NOR PAIN NOTED. WILL CONTINUE TO MONITOR PATIENTS STATUS AND ENDORSED TO INCOMING NURSE.
--- NOTE | 2019-07-17 18:33 | NUR ---
REFUSED TO HAVE CLEAR LIQUID AND REFUSED TO EAT FOR NOW.
[2019-07-17 19:00] VITALS: BP_SYST 103
--- NOTE | 2019-07-17 19:13 | NUR ---
ENDORSED TO INCOMING NURSE ASHLIE MURDOCK
--- NOTE | 2019-07-17 19:15 | NUR ---
change of shift.pt.presents quiescent affect;calm,resting.pt.presents iv access intact patent iv fluids infusing. general status stable. respiratory status stable;o2 therapy administered via nasal cannulae@the rate:2l/min.call light/telephone w/in reach of the pt.
[2019-07-17 20:00] VITALS: BP_SYST 103
--- NOTE | 2019-07-17 20:00 | NUR ---
pt.assessed.v/s assessed;values w/in normal limits.pt.presents affect;lethargic pt.presents speech status;slurred incomprehensible. per flacc pain mgx pt.absent facial grimaces /body posturing.iv access intact;patent iv fluids infusing.pt.assessed for cleanliness.pt.repositioned.i have attended to oral care.i have suctioned the pt.call light/telephone placed w/in reach of the pt.
--- NOTE | 2019-07-17 21:00 | NUR ---
2100medications:unable to administered.pt.swallow capacity;function compromised.i attempted to administered fluids p/t the po medications;trial.pt.pocketed the fluids; expectorated the fluids.i have administered keppra ivpb.
--- NOTE | 2019-07-17 22:00 | NUR ---
pt.assessed.pt.assessed for cleanliness.pt.repositioned.i have suctioned the pt.i have attended to oral care.iv access intact;patent;iv fluids infusing. per flacc;pain mgx;pt.absent facial grimaces/body posturing.general status stable.respiratory status stable;slightly labored;;02-sat%=96%.call light/telephone placed w/in reach of the pt. Addendum: 07/18/19 at 0206 by Joe Kraus RN i have administered zosyn;abx;ivpb:2200p dose.
--- NOTE | 2019-07-18 | NUR ---
pt.assessed.v/s assessed;values w/in normal limits.per flacc;pain mgx;pt.absent facial grimaces./body posturing.i have suctioned the pt.pt.assessed for cleanliness.pt.repositioned.iv access intact;patent iv fluids infusing.general status stable.respiratory status stable.slightly labored. 02-sat%=96%.call light/telephone placed w/in reach of the pt.
--- NOTE | 2019-07-18 02:00 | NUR ---
pt.assessed pt.assessed for cleanliness.pt.repositioned.per flacc pain mgx pt.absent facial grimaces/body posturing.iv access intact;patent iv fluids infusing.i have attended to oral care.i have suctioned the pt.general status stable.respiratory status stable;unlabored.02-sat%=96%.call light/telephone placed w/in reach of the pt.
[2019-07-18 02:09] VITALS: BP_SYST 109
--- NOTE | 2019-07-18 04:00 | NUR ---
pt.assessed.pt.assessed for cleanliness.pt.repositioned.per flacc pain mgx pt.absent facial grimaces body posturing.i have attended to oral care.i have suctioned the pt.general status stable.respiratory status stable;slightly labored;02-sat%=96%.call light/telephone placed w/in reach of the pt.
[2019-07-18 05:16] LABS: HEPATITIS A AB, IgM Negative (Negative); HEPATITIS B CORE AB, IgM Negative (Negative); HEPATITIS B SURFACE AG Negative (Negative)
[2019-07-18] MEDS: PIPERACILLIN/TAZO 4.5 GM in D5W 100 ML IV SCH ×3 (05:51→20:47)
[2019-07-18] MEDS ORDERED: DEXTROSE 50% JECT 50 ML DISP.SYRIN ONE (06:14)
--- NOTE | 2019-07-18 06:30 | NUR ---
pt.assessed.pt assessed for cleanliness.pt.cleaned repositioned.i have assessed the blood glucose:value;68/64mg/dl.i initiated the hypoglycemia protocol.i have administered d50 blood glucose assessed w/in protocol:value;172mg/dl.general status stable.respiratory status stable. unlabored.i have attended to the wound care,.call light/telephone placed w/in reach of the pt.
--- NOTE | 2019-07-18 07:20 | NUR ---
has oxygen 2lnc. hob elevated.
--- NOTE | 2019-07-18 07:30 | NUR ---
received patient awake x 1 but confused. lungs bilaterally with crackles and diminished at the bases. on and off non productive cough noted. abdomen soft and non distended. incontinent of urine and bowel. has iv access on the rt forearm #22 saline lock. bed low position,alarmed and locked. call lights within reach. no sob noted. nor pain noted. will continue to monitor patients status.
[2019-07-18 07:35] VITALS: BP_SYST 113
[2019-07-18 07:37] LABS: ALANINE AMINOTRANSFERASE 188 U/L (12-78); ALBUMIN 1.3 g/dL (3.4-4.8); ANION GAP 6 (5-15); ASPARTATE AMINOTRANSFERASE 43 U/L (10-37); CALCIUM 8.9 mg/dL (8.4-11.0); CHLORIDE 102 mmol/L (98-107); CREATININE 0.59 mg/dL (0.55-1.30); GLUCOSE 84 mg/dL (70-99); PHOSPHORUS 1.9 mg/dL (2.7-4.5); POTASSIUM 3.1 mmol/L (3.5-5.1); SODIUM SERUM 133 mmol/L (136-145); TOTAL BILIRUBIN 0.9 mg/dL (0.0-1.0); TRIGLYCERIDES 121 mg/dL (30-150); UREA NITROGEN, BLOOD 11 mg/dL (8-21)
--- NOTE | 2019-07-18 08:00 | NUR ---
Dr. Mosley came and ordered to have NGT placement today.
[2019-07-18 08:05] VITALS: BP_SYST 113
[2019-07-18] MEDS: IPRATROPIUM BROM 0.5 MG/2.5 ML VIAL.NEB (ATROVENT) INH PRN ×3 (08:17→23:28)
[2019-07-18] MEDS: ALBUTEROL SULFATE 0.083% 2.5 MG/3 ML VIAL.NEB INH PRN (08:18)
[2019-07-18] MEDS: DOCUSATE SODIUM 100 MG CAPSULE PO SCH ×2 (09:00→20:50)
[2019-07-18] MEDS: ASCORBIC ACID 500 MG TABLET PO SCH ×2 (09:00→20:51)
[2019-07-18] MEDS: MULTIVITAMINS TAB 1 TABLET PO SCH (09:00)
--- NOTE | 2019-07-18 09:00 | NUR ---
Due medication given at this time.
--- NOTE | 2019-07-18 09:00 | NUR ---
DR ELLIOTT CAME ORDERED TO HAVE NGT PLACEMENT
[2019-07-18] MEDS: PANTOPRAZOLE SODIUM 40 MG/VIAL (PROTONIX) IVP SCH (09:07)
[2019-07-18] MEDS: MORPHINE 2 MG/ML INJ. SYRINGE IVP PRN (09:07)
[2019-07-18] MEDS: levETIRAcetam 500 MG in NS 100 ML IV SCH ×2 (09:08→20:46)
--- NOTE | 2019-07-18 09:11 | NUR ---
MORPHINE 2 MG IV GIVEN. MADE COMFORTABLE. KEPPRA IV GIVEN.
[2019-07-18] MEDS ORDERED: K PHOS 30 MM in NS 250 ML IV ONE (10:15)
[2019-07-18] MEDS ORDERED: D5/0.45 NS 500 ML IV ONE (10:15)
--- NOTE | 2019-07-18 10:30 | NUR ---
ngt tube insertion unsuccessful. there is resistance and patient very agitated and cannot swallow. uncooperaive.
[2019-07-18] MEDS: PEG 400/HYPROMELLOSE/GLYCERIN 15 ML DROPS EACH EYE SCH ×4 (10:55→20:55)
[2019-07-18] MEDS: BALSAM PERU/CASTOR OIL 60 GM OINT...G. TP SCH (10:55)
--- NOTE | 2019-07-18 12:00 | NUR ---
latest bs 80 mg/dl. no coverage given made comfortable.
[2019-07-18 12:30] VITALS: BP_SYST 107
--- NOTE | 2019-07-18 12:30 | NUR ---
NGT Tube insertion unsuccessful. At 1230, respiratory specialist suctioned bilateral nose with too much congestion noted.
--- NOTE | 2019-07-18 12:50 | NUR ---
Dr. Domingo called for urine culture result.
--- NOTE | 2019-07-18 14:00 | NUR ---
turn to sides. hob elevated. suction on the mouth and nose x 2 with respiratory therapist.
--- NOTE | 2019-07-18 14:35 | NUR ---
Nutrition F/U RD reviewed pt's current EMR record including diet Hx, physician notes, nursing notes, pertinent labs/meds/procedures, care trends, and care activity. Admission Dx: Abd pain and UTI PMH: UTI, Abd pain, Intractable vomiting, elevated LFT, possible obstruction, renal insufficiency, Hypokalemia, Hx of: Seizure, COPD, stroke, pacemaker, paroxysmal atr fibr per physician notes Current Diet Order/Nutrition Support: Clear liquid x1 day w/ plans to start PPN D20%, AA8.5% at 43 ml/hr, IL20% at 5 ml/hr via peripheral line PPN provides: 766 kcal/day, 44 gm protein/day, 1272 ml total volume/day, and GIR: 1.1 gm CHO/kg/min PPN meets: 40% of lower end of estimated caloric needs and 80% of lower end of estimated protein needs Pertinent Medical Info: NGT placement was unsuccessful and pt failed swallow eval 07/16/19 -- ST rec for NPO/alternate method for feeding per EMR. Subjective Info: Nutrition Consult received for unstageable sacral PU 07/13/191816 and PPN Notification 07/17/19 1127. Pt was seen resting in bed -- no current nutrition support infusing. Plans for pt to start on PPN support tonight. RD submitted RD rec for PPN to pharmacy. Pt is not meeting nutritional needs. Skin Integrity Comment: Anup scale: 11; per Warranty Administrator note 07/16/19: 1. Sacral area: Unstageable pressure ulcer, present on admission. 2. Left upper extremity: Ecchymosis, present on admission. 3. Right upper extremity: Ecchymosis, present on admission. Estimated Energy Expenditure (kcals/day) 5112-8305 kcal/day (30-35 kcal/kg CBW for wound healing) Estimated Protein Required (g/day) 55-83 gm/day (1-1.5 gmkg IBW for wound healing) Estimated Fluid Required (l/day) 1.9 L/day (30ml/kg CBW for wound healing) Problem/Etiology/Signs/Symptoms Increased nutrient needs r/t compromised skin integrity AEB estimated calories and protein for wound healing. *ongoing Expected Outcomes/Goals Monitor appetite and PO intake w/ goal of pt meeting at least 75% of estimated nutritional needs, labs trending WNL, normal GI function, skin integrity/wt maintenance. Dietitian Recommendations * Recommend NPO as per ST swallow eval rec * Recommend PPN D20%, AA10% at 70 ml/hr (goal rate), IL20% at 10 ml/hr daily via peripheral line Provides: 1387 kcal/day, 84 gm protein/day, 1920 ml total volume/day, and GIR: 1.8 gm CHO/kg/min Meets: 72% of lower end of estimated caloric needs and 101% of upper end of estimated protein needs Follow Up High Risk: F/U in 2-3 days
--- NOTE | 2019-07-18 14:40 | NUR ---
Dietitian Recommendations * Recommend NPO as per ST swallow eval rec * Recommend PPN D20%, AA10% at 70 ml/hr (goal rate), IL20% at 10 ml/hr daily via peripheral line Provides: 1387 kcal/day, 84 gm protein/day, 1920 ml total volume/day, and GIR: 1.8 gm CHO/kg/min Meets: 72% of lower end of estimated caloric needs and 101% of upper end of estimated protein needs LP, RD Please refer to Nutrition F/U for details.
--- NOTE | 2019-07-18 16:00 | NUR ---
turn to sides. made comfortable. hob elevated.
[2019-07-18 17:23] VITALS: BP_SYST 108
--- NOTE | 2019-07-18 18:34 | NUR ---
latest bs 104 mg/dl. no coverage given.
--- NOTE | 2019-07-18 19:26 | NUR ---
endorsed to incoming nurse Miriam MURDOCK
--- NOTE | 2019-07-18 19:50 | NUR ---
INITIAL NOTE AT INITIAL ASSESSMENT, PATIENT IS RESTING IN BED, STABLE, NO SIGNS OF RESPIRATORY DISTRESS. PATIENT VERBALIZES NO PAIN. PLAN OF CARE FOR THE EVENING IS COMMUNICATED WITH THE PATIENT. PATIENT IS UNSUCCESSFUL IN DEMONSTRATION OF CALL LIGHT AT THIS TIME DUE TO COGNITIVE IMPAIRMENT. BED IS LOCKED, ALARMED, AND AT THE LOWEST LEVEL. FALL, SAFETY, RESPIRATORY, ASPIRATION, AND ISOLATION PRECAUTIONS WILL BE TAKEN THROUGHOUT THE SHIFT. PATIENT WILL BE TURNED AT LEAST [id number] THROUGHOUT THE SHIFT.
[2019-07-18 20:00] VITALS: BP_SYST 105
[2019-07-18] MEDS: ALBUTEROL SULFATE 0.083% 2.5 MG/3 ML VIAL.NEB INH SCH ×2 (20:08→23:28)
[2019-07-18] MEDS: FAT EMULSIONS 250 ML IV SCH (20:50)
[2019-07-18] MEDS ORDERED: [UNRECOGNIZED DRUG - OTHER] IV SCH ×8 (21:00)
[2019-07-18] MEDS ORDERED: SODIUM CHLORIDE IV SCH ×8 (21:00)
[2019-07-18] MEDS ORDERED: TPN PERIPHERAL IV SCH ×8 (21:00)
[2019-07-18] MEDS ORDERED: POTASSIUM CHLORIDE IV SCH ×8 (21:00)
--- NOTE | 2019-07-18 21:50 | NUR ---
NEW IV NOTE PATIENT'S IV IS NOTED TO BE INFILTRATED, IV IS D/C, TIP INTACT, NO SIGNS OF ACTIVE BLEED. NEW IV IS PLACED FOR PATIENT ON PATIENT'S RIGHT UPPER ARM, PATIENT TOLERATED WELL. 10 MLS NS FLUSHED WITH NO RESISTANCE. BED IS LOCKED, ALARMED, AND AT THE LOWEST LEVEL.
--- NOTE | 2019-07-18 23:30 | NUR ---
PT HAD TAKEN OFF O2 BUT WAS SATING 95%. PT TOOK OFF TX AND REFUSED. TRIED BLOW BY, BUT PT SWATTED ME AND SAID IT DOESN'T DO ANY GOOD. Addendum: 07/18/19 at 2352 by Cheryl Christie RT Amended: Links added.
--- NOTE | 2019-07-18 23:50 | NUR ---
NOTE PATIENT IS RESTING IN BED, STABLE, NO SIGNS OF RESPIRATORY DISTRESS. BED IS LOCKED, ALARMED, AND AT THE LOWEST LEVEL.
[2019-07-19] VITALS (7 sets, daily range): BP systolic 111–141
--- NOTE | 2019-07-19 01:50 | NUR ---
NOTE PATIENT IS SLEEPING, STABLE, NO SIGNS OF RESPIRATORY DISTRESS. BED IS LOCKED, ALARMED, AND AT THE LOWEST LEVEL.
[2019-07-19] MEDS: MORPHINE 2 MG/ML INJ. SYRINGE IVP PRN ×2 (02:00→12:48)
[2019-07-19] MEDS: ALBUTEROL SULFATE 0.083% 2.5 MG/3 ML VIAL.NEB INH SCH ×6 (02:23→23:56)
--- NOTE | 2019-07-19 03:50 | NUR ---
NOTE PATIENT IS SLEEPING, STABLE, NO SIGNS OF RESPIRATORY DISTRESS. BED IS LOCKED, ALARMED, AND AT THE LOWEST LEVEL.
[2019-07-19] MEDS: PIPERACILLIN/TAZO 4.5 GM in D5W 100 ML IV SCH ×3 (04:52→21:26)
--- NOTE | 2019-07-19 05:50 | NUR ---
NOTE PATIENT IS SLEEPING, STABLE, NO SIGNS OF RESPIRATORY DISTRESS. BED IS LOCKED, ALARMED, AND AT THE LOWEST LEVEL.
--- NOTE | 2019-07-19 06:45 | NUR ---
CLOSING NOTE PATIENT SLEPT WELL THROUGHOUT THE NIGHT. AT THIS TIME, SHE IS RESTING IN BED, STABLE, NO SIGNS OF RESPIRATORY DISTRESS. CALL LIGHT IS WITHIN REACH. BED IS LOCKED, ALARMED, AND AT THE LOWEST LEVEL. FALL, SAFETY, RESPIRATORY, ASPIRATION, AND ISOLATION PRECAUTIONS HAVE BEEN TAKEN THROUGHOUT THE NIGHT. WILL CONTINUE TO MONITOR UNTIL SHIFT REPORT IS GIVEN AT BEDSIDE TO AM NURSE.
--- NOTE | 2019-07-19 07:20 | NUR ---
received patient awake x 1 confused and slurred speech. lungs bilaterally with crackles and diminished at the bases. abdomen soft non distended. both arms edematous. has iv access on the rt upper arm #22 with tpn at 43cc/hr and lipids at 5cc/hr infusing on well. bed low position, alarmed and locked. call lights within reach.
[2019-07-19 07:24] LABS: BASOPHILS % (AUTO) 0.5 % (0.0-2.0); EOSINOPHILS # (AUTO) 0.1 K/uL (0.0-0.4); EOSINOPHILS % (AUTO) 0.7 % (0.0-4.0); HEMATOCRIT 35.5 % (36-48); HEMOGLOBIN 11.6 g/dL (12.0-16.0); LYMPHOCYTES # (AUTO) 1.6 K/uL (1.0-5.5); LYMPHOCYTES % (AUTO) 15.6 % (20.5-51.5); MEAN CORPUSCULAR HEMOGLOBIN 29 pg (27-31); MEAN CORPUSCULAR HGB CONC 33 % (32-36); MEAN CORPUSCULAR VOLUME 87 fL (79.0-98.0); MONOCYTES # (AUTO) 0.5 K/uL (0.0-1.0); MONOCYTES % (AUTO) 5.5 % (1.7-9.3); NEUTROPHILS # (AUTO) 7.8 K/uL (1.8-7.7); NEUTROPHILS % (AUTO) 77.7 % (40.0-70.0); PLATELET COUNT (AUTO) 167 K/uL (130-430); RED BLOOD CELL COUNT(AUTO) 4.08 MIL/uL (4.2-6.2); RED CELL DISTRIBUTION WIDTH 16.9 % (9.0-15.0)
[2019-07-19 07:46] LABS: ALANINE AMINOTRANSFERASE 169 U/L (12-78); ALBUMIN 1.4 g/dL (3.4-4.8); ANION GAP 9 (5-15); CALCIUM 8.3 mg/dL (8.4-11.0); CHLORIDE 105 mmol/L (98-107); CREATININE 0.51 mg/dL (0.55-1.30); GLUCOSE 95 mg/dL (70-99); POTASSIUM 3.3 mmol/L (3.5-5.1); SODIUM SERUM 138 mmol/L (136-145); TOTAL BILIRUBIN 0.9 mg/dL (0.0-1.0); UREA NITROGEN, BLOOD 8 mg/dL (8-21)
[2019-07-19 07:59] LABS: ASPARTATE AMINOTRANSFERASE 68 U/L (10-37)
[2019-07-19] MEDS: ASCORBIC ACID 500 MG TABLET PO SCH ×2 (09:00→21:00)
[2019-07-19] MEDS: DOCUSATE SODIUM 100 MG CAPSULE PO SCH ×2 (09:00→21:00)
[2019-07-19] MEDS: MULTIVITAMINS TAB 1 TABLET PO SCH (09:00)
--- NOTE | 2019-07-19 09:20 | NUR ---
dr willams came tried to have ngt insertion with the radiologist at the bedside. but unsuccessful x 4. said will have peg placement by next week. ordered to have bilateral wrist restraint.
[2019-07-19] MEDS: BALSAM PERU/CASTOR OIL 60 GM OINT...G. TP SCH (09:44)
[2019-07-19] MEDS: PANTOPRAZOLE SODIUM 40 MG/VIAL (PROTONIX) IVP SCH (09:45)
[2019-07-19] MEDS: PEG 400/HYPROMELLOSE/GLYCERIN 15 ML DROPS EACH EYE SCH ×4 (09:45→21:24)
[2019-07-19] MEDS: levETIRAcetam 500 MG in NS 100 ML IV SCH ×2 (09:53→21:25)
--- NOTE | 2019-07-19 11:40 | NUR ---
dr spaulding came informed regarding armstrong insertion, picc line and potassium level of 3.[address] екатерина had difficculty inserting ngt today.and possible peg placement next week.
[2019-07-19] MEDS ORDERED: KCL 40 mEq in 100 mL (PREMIX) 100 ML IV ONE (11:45)
[2019-07-19 12:37] LABS: INR 1.1 (0.8-1.2); PROTHROMBIN TIME 10.9 SECS (9.5-12.5)
--- NOTE | 2019-07-19 12:50 | NUR ---
Compound Mixer: Met with pt. to conduct a DCPA DUMP ATTENDANT introduced self to pt. who was getting her blood sugar reading by Rn. Mcpherson. Pt. was moaning and groaning stating, "Help me, I just want to sleep . I need my medicine" DUMP ATTENDANT told her she was sorry she was uncomfortable. Rn stated she was going to take care of her. Pt. kept her eyes close throughout DUMP ATTENDANT's visit. DUMP ATTENDANT closed the blinds for pt. as she was going to try to sleep. Pt. confirmed the demographics on the face sheet. Pt. stated she has lived at [facility] for the past 5 months. She stated the two people listed on the facesheet are her daughter in law and her son, from [place]. Rn stated she does not believe they have visited pt. DUMP ATTENDANT was able to ask pt. and Rn some questions on the DCPA to complete it. DUMP ATTENDANT thanked pt. and excused herself. DUMP ATTENDANT will remain available as needed.
--- NOTE | 2019-07-19 13:37 | NUR ---
turn to sides.
--- NOTE | 2019-07-19 15:30 | NUR ---
armstrong catheter #16 inserted at this time without difficulty. urine output clear yellow adequate.
[2019-07-19] MEDS ORDERED: POTASSIUM CHLORIDE 40 MEQ in NS 250 ML IV ONE (16:15)
--- NOTE | 2019-07-19 18:00 | NUR ---
LATEST BS 103 MG/DL. NO COVERAGE GIVEN.
--- NOTE | 2019-07-19 19:20 | NUR ---
ENDORSED TO ASHLIE MURDOCK INCOMING NURSE.
[2019-07-19] MEDS ORDERED: SODIUM CHLORIDE IV SCH ×8 (21:00)
[2019-07-19] MEDS ORDERED: TPN PERIPHERAL IV SCH ×8 (21:00)
[2019-07-19] MEDS ORDERED: [UNRECOGNIZED DRUG - OTHER] IV SCH ×8 (21:00)
[2019-07-19] MEDS ORDERED: K PHOS IV SCH ×8 (21:00)
[2019-07-19] MEDS: FAT EMULSIONS 250 ML IV SCH (22:05)
[2019-07-20] MEDS: ALBUTEROL SULFATE 0.083% 2.5 MG/3 ML VIAL.NEB INH SCH ×6 (03:00→23:25)
[2019-07-20] MEDS: MORPHINE 2 MG/ML INJ. SYRINGE IVP PRN ×3 (05:28→18:18)
[2019-07-20] MEDS: PIPERACILLIN/TAZO 4.5 GM in D5W 100 ML IV SCH ×3 (05:31→23:45)
--- NOTE | 2019-07-20 07:15 | NUR ---
Received patient from [facility] shift nurse and report. Patient sleeping with padded side rails. Breathing even and unlabored on 02 2 liters nasal cannula. In no acute distress. Call light with in reach.
[2019-07-20 07:33] LABS: BASOPHILS # (AUTO) 0.1 K/uL (0.0-0.2); BASOPHILS % (AUTO) 0.6 % (0.0-2.0); EOSINOPHILS # (AUTO) 0.1 K/uL (0.0-0.4); HEMATOCRIT 33.3 % (36-48); LYMPHOCYTES # (AUTO) 1.2 K/uL (1.0-5.5); LYMPHOCYTES % (AUTO) 12.8 % (20.5-51.5); MEAN CORPUSCULAR HEMOGLOBIN 29 pg (27-31); MEAN CORPUSCULAR HGB CONC 33 % (32-36); MEAN CORPUSCULAR VOLUME 86 fL (79.0-98.0); MONOCYTES # (AUTO) 0.6 K/uL (0.0-1.0); MONOCYTES % (AUTO) 6.3 % (1.7-9.3); NEUTROPHILS # (AUTO) 7.5 K/uL (1.8-7.7); PLATELET COUNT (AUTO) 235 K/uL (130-430); RED BLOOD CELL COUNT(AUTO) 3.85 MIL/uL (4.2-6.2); RED CELL DISTRIBUTION WIDTH 17.4 % (9.0-15.0); WHITE BLOOD COUNT (AUTO) 9.5 K/uL (4.8-10.8)
[2019-07-20 07:53] LABS: ALANINE AMINOTRANSFERASE 120 U/L (12-78); ALBUMIN 1.2 g/dL (3.4-4.8); ANION GAP 6 (5-15); ASPARTATE AMINOTRANSFERASE 33 U/L (10-37); CALCIUM 8.2 mg/dL (8.4-11.0); CHLORIDE 105 mmol/L (98-107); CREATININE 0.42 mg/dL (0.55-1.30); GLUCOSE 131 mg/dL (70-99); PHOSPHORUS 1.9 mg/dL (2.7-4.5); SODIUM SERUM 134 mmol/L (136-145); TOTAL BILIRUBIN 0.7 mg/dL (0.0-1.0); UREA NITROGEN, BLOOD 11 mg/dL (8-21)
[2019-07-20 08:00] VITALS: BP_SYST 128
[2019-07-20] MEDS: MULTIVITAMINS TAB 1 TABLET PO SCH (09:00)
[2019-07-20] MEDS: DOCUSATE SODIUM 100 MG CAPSULE PO SCH ×2 (09:00→21:00)
[2019-07-20] MEDS: ASCORBIC ACID 500 MG TABLET PO SCH ×2 (09:00→21:00)
[2019-07-20] MEDS: PEG 400/HYPROMELLOSE/GLYCERIN 15 ML DROPS EACH EYE SCH ×4 (10:23→21:00)
[2019-07-20] MEDS: PANTOPRAZOLE SODIUM 40 MG/VIAL (PROTONIX) IVP SCH (10:24)
[2019-07-20] MEDS: levETIRAcetam 500 MG in NS 100 ML IV SCH ×2 (10:24→22:13)
[2019-07-20] MEDS: BALSAM PERU/CASTOR OIL 60 GM OINT...G. TP SCH (10:25)
[2019-07-20 10:35] LABS: NEUTROPHILS % (AUTO) 79.3 % (40.0-70.0)
[2019-07-20] MEDS ORDERED: NA PHOS 30 MM in NS 250 ML IV ONE (10:45)
[2019-07-20 12:00] VITALS: BP_SYST 141
--- NOTE | 2019-07-20 17:20 | NUR ---
Son Rik called, requested to talk to primary MD about possible palliative care and to not have the peg placement done on Monday. Told Rik will report to MD Fallon to call him when arrive at facility or will endorse to [facility] shift nurse to endorse.
[2019-07-20 18:00] VITALS: BP_SYST 155
--- NOTE | 2019-07-20 18:20 | NUR ---
Performed bed bath, changed linen, changed sacral dressing, and performed oral care, patient tolerated well.
--- NOTE | 2019-07-20 19:29 | NUR ---
Endorsed patient to [facility] shift nurse and report. Patient sleeping with padded side rails. Breathing even and unlabored on 02 2 liters nasal cannula. In no acute distress. Call light with in reach. Endorsed to [facility] shift nurse to notify MD Fallon regarding son's Rik request to communicate with MD Fallon about palliative care and to cancel peg tube placement. Endorsed to [facility] shift nurse to renew restraints and armstrong catheter.
--- NOTE | 2019-07-20 19:40 | NUR ---
Initial note: Received report from jose eduardo RN. Patient is awake in bed, no acute distress. Tolerating 2L NC. TPN and lipids infusing as ordered to BALDO PICC line, no infiltration noted. BALDO peripheral IV saline lock noted. Nagel catheter draining yellow urine to gravity. Bilateral soft wrists restraints noted. Removed restraints as patient is not agitated and not attempting to pull out tubing. No skin breakdown to wrists noted. Call light with patient. Safety, fall, seizure, aspiration, contact isolation precautions in place. Will continue with plan of care.
[2019-07-20] MEDS ORDERED: K PHOS IV SCH ×9 (21:00)
[2019-07-20] MEDS ORDERED: TPN PERIPHERAL IV SCH ×9 (21:00)
[2019-07-20] MEDS ORDERED: [UNRECOGNIZED DRUG - OTHER] IV SCH ×9 (21:00)
[2019-07-20] MEDS ORDERED: SODIUM CHLORIDE IV SCH ×9 (21:00)
--- NOTE | 2019-07-20 21:10 | NUR ---
PAGED I PAGED DR. MCKEON'S EXCHANGE SERVICE I SPOKE WITH RAQUEL CONTINUOUS ABSORPTION PROCESS OPERATOR MESSAGE WAS GIVEN TO ME BY LUKE MURDOCK IN CHARGE OF THIS PATIENT THAT HER SON ADRIANA WOULD LIKE TO TALK TO DR. MCKEON SO I GAVE ADRIANA'S CELL PHONE NUMBER TO THE APPRENTICE PLANT ATTENDANT RAQUEL
[2019-07-20] MEDS: FAT EMULSIONS 250 ML IV SCH (22:14)
[2019-07-21 00:19] VITALS: BP_SYST 124
[2019-07-21] MEDS: ALBUTEROL SULFATE 0.083% 2.5 MG/3 ML VIAL.NEB INH SCH ×6 (04:22→23:01)
[2019-07-21] MEDS: PIPERACILLIN/TAZO 4.5 GM in D5W 100 ML IV SCH ×3 (05:45→21:23)
[2019-07-21] MEDS: MORPHINE 2 MG/ML INJ. SYRINGE IVP PRN ×3 (05:46→18:21)
--- NOTE | 2019-07-21 06:56 | NUR ---
Closing note: Patient is resting in bed, no acute distress. Morphine 2 MG administered for pain 8/10 via FLACC scale. Wound care for sacrum performed per MD order. Tolerating 2L NC. TPN, lipids, IV antibiotics infusing as ordered. Will endorse care to dayshift RN.
--- NOTE | 2019-07-21 07:15 | NUR ---
Received patient and report from [facility] shift nurse. Patient sleeping in no acute distress. Breathing even and unlabored, no SOB of breath. Call light with in reach. Padded side rails in place.
[2019-07-21 07:52] LABS: ALANINE AMINOTRANSFERASE 99 U/L (12-78); ALBUMIN 1.2 g/dL (3.4-4.8); ANION GAP 5 (5-15); ASPARTATE AMINOTRANSFERASE 28 U/L (10-37); CALCIUM 8.3 mg/dL (8.4-11.0); CHLORIDE 105 mmol/L (98-107); CREATININE 0.49 mg/dL (0.55-1.30); GLUCOSE 99 mg/dL (70-99); PHOSPHORUS 2.7 mg/dL (2.7-4.5); POTASSIUM 4.3 mmol/L (3.5-5.1); SODIUM SERUM 136 mmol/L (136-145); TOTAL BILIRUBIN 0.7 mg/dL (0.0-1.0); TRIGLYCERIDES 134 mg/dL (30-150); UREA NITROGEN, BLOOD 11 mg/dL (8-21)
[2019-07-21 08:00] VITALS: BP_SYST 126
[2019-07-21] MEDS: MULTIVITAMINS TAB 1 TABLET PO SCH (09:00)
[2019-07-21] MEDS: DOCUSATE SODIUM 100 MG CAPSULE PO SCH ×2 (09:00→21:00)
[2019-07-21] MEDS: ASCORBIC ACID 500 MG TABLET PO SCH ×2 (09:00→21:00)
[2019-07-21] MEDS: PANTOPRAZOLE SODIUM 40 MG/VIAL (PROTONIX) IVP SCH (10:47)
[2019-07-21] MEDS: levETIRAcetam 500 MG in NS 100 ML IV SCH ×2 (10:48→21:21)
[2019-07-21] MEDS: PEG 400/HYPROMELLOSE/GLYCERIN 15 ML DROPS EACH EYE SCH ×4 (10:49→21:20)
[2019-07-21] MEDS: BALSAM PERU/CASTOR OIL 60 GM OINT...G. TP SCH (10:50)
[2019-07-21] MEDS ORDERED: HYDROcodone/ACETAMIN 5-325 MG TAB (NORCO/ VICODIN) PO PRN (11:15)
[2019-07-21] MEDS ORDERED: LIDOCAINE PATCH 5% 1 EA TP ONE (11:30)
[2019-07-21 12:16] VITALS: BP_SYST 129
--- NOTE | 2019-07-21 13:42 | NUR ---
Nutrition F/U RD reviewed pt's current EMR record including diet Hx, physician notes, nursing notes, pertinent labs/meds/procedures, care trends, and care activity. Admission Dx: Abd pain and UTI PMH: UTI, Abd pain, Intractable vomiting, elevated LFT, possible obstruction, renal insufficiency, Hypokalemia, Hx of: Seizure, COPD, stroke, pacemaker, paroxysmal atr fibr per physician notes Current Diet Order/Nutrition Support: NPO x2 day w/ plans to start PPN D20%, AA8.5% at 60 ml/hr, IL20% at 7 ml/hr via peripheral line PPN provides: 1070 kcal/day, 61 gm protein/day, 1608 ml total volume/day, and GIR: 1.4 gm CHO/kg/min PPN meets: 56% of lower end of estimated caloric needs and 73% of upper end of estimated protein needs Pertinent Medical Info: Pt's family considering hospice care as opposed to PEG placement. NGT placement was unsuccessful and pt failed swallow eval 07/16/19 -- ST rec for NPO/alternate method for feeding per EMR. Subjective Info: Pt seen earlier today. PPN infusing at 60ml/hr per MD, Lipids infusing at 5ml/hr??. RD has been trying to contact RN Lena at ext [phone] but has failed to answer several times. Pt is not yet meeting adequate nutrition w/ current TPN regimen and would benefit from increased infusion rate and protein concentration. Labs: 07/21 Na 136WNL, K 4.3WNL, BG 99WNL, BUN 11WNL, CRE 0.49L Skin Integrity Comment: Anup scale: 11; per Guest Service Agent note 07/16/19: 1. Sacral area: Unstageable pressure ulcer, present on admission. 2. Left upper extremity: Ecchymosis, present on admission. 3. Right upper extremity: Ecchymosis, present on admission. Estimated Energy Expenditure (kcals/day) 2709-6719 kcal/day (30-35 kcal/kg CBW for wound healing) Estimated Protein Required (g/day) 55-83 gm/day (1-1.5 gmkg IBW for wound healing) Estimated Fluid Required (l/day) 1.9 L/day (30ml/kg CBW for wound healing) Problem/Etiology/Signs/Symptoms Increased nutrient needs r/t compromised skin integrity AEB estimated calories and protein for wound healing. *ongoing Inadequate nutrient intake r/t PPN infusion rate AEB TPN intake meets <70% of est needs. (*new) Expected Outcomes/Goals Monitor TPN intake w/ goal of pt meeting at least 75% of estimated nutritional needs, labs trending WNL, normal GI function, skin integrity/wt maintenance. Dietitian Recommendations * Recommend NPO as per ST swallow eval rec * Recommend PPN D20%, AA10% at 70 ml/hr (goal rate), IL20% at 10 ml/hr daily via peripheral line Provides: 1387 kcal/day, 84 gm protein/day, 1920 ml total volume/day, and GIR: 1.8 gm CHO/kg/min Meets: 72% of lower end of estimated caloric needs and 101% of upper end of estimated protein needs Follow Up High Risk: F/U in 2-3 days Addendum: 07/21/19 at [address] RN answered RD's call at 2pm and RD endorsed to RN re: wrong lipid infusion rate and to increase it to 7ml per pharmacy.
--- NOTE | 2019-07-21 13:51 | NUR ---
Dietitian Recommendations * Recommend NPO as per ST swallow eval rec * Recommend PPN D20%, AA10% at 70 ml/hr (goal rate), IL20% at 10 ml/hr daily via peripheral line Provides: 1387 kcal/day, 84 gm protein/day, 1920 ml total volume/day, and GIR: 1.8 gm CHO/kg/min Meets: 72% of lower end of estimated caloric needs and 101% of upper end of estimated protein needs Please see Nutrition F/U note for details. MCFP, RD
[2019-07-21 15:45] VITALS: BP_SYST 122
--- NOTE | 2019-07-21 18:50 | NUR ---
Received consent for anethesia use for tomorrow from Flory Paniagua via telephone verified with second nurse after giving education of risks and benefits. Also informed may receive from MDs prior to procedure around 0630 tomorrow morning.
--- NOTE | 2019-07-21 19:15 | NUR ---
Endorsed patient and gave report to oncoming shift nurse. Call light with in reach. Padded side rails in place.
[2019-07-21 20:00] VITALS: BP_SYST 136
[2019-07-21] MEDS ORDERED: TPN PERIPHERAL IV SCH ×8 (21:00)
[2019-07-21] MEDS ORDERED: K PHOS IV SCH ×8 (21:00)
[2019-07-21] MEDS ORDERED: [UNRECOGNIZED DRUG - OTHER] IV SCH ×8 (21:00)
[2019-07-21] MEDS ORDERED: SODIUM CHLORIDE IV SCH ×8 (21:00)
[2019-07-21] MEDS: FAT EMULSIONS 250 ML IV SCH (21:35)
--- NOTE | 2019-07-21 23:26 | NUR ---
PATIENT TURNED REPOSITIONED Q2. NO ACUTE DISTRESS NOTED. NO COMPLAINT OF PAIN OR DISCOMFORT. WILL CONTINUE TO MONITOR.
[2019-07-22] MEDS: MORPHINE 2 MG/ML INJ. SYRINGE IVP PRN ×2 (00:22→09:38)
[2019-07-22] MEDS: ALBUTEROL SULFATE 0.083% 2.5 MG/3 ML VIAL.NEB INH SCH ×6 (03:00→23:14)
[2019-07-22] MEDS: PIPERACILLIN/TAZO 4.5 GM in D5W 100 ML IV SCH ×3 (05:44→21:50)
[2019-07-22] MEDS: CEFAZOLIN 1 GM IVPB PREMIX 50 ML IV ONE ×2 (05:48→07:03)
[2019-07-22] MEDS ORDERED: ceFAZolin SODIUM 1 GM VIAL ONE (06:53)
--- NOTE | 2019-07-22 08:05 | NUR ---
Opening Note received SBAR report from maintenance supervisor 2nd shift RN, patient resting in bed, respirations even and unlabored on 2L nasal cannula, no acute distress noted, oral suctioning provided, armstrong catheter draining to gravity, TPN and lipids infusing well to right upper arm, educated patient on use of call light and asked to call for assistance, patient verbalized understanding, call light in reach, educated patient on use of bed alarm for patient safety, refusing bed alarm, bed in low and locked position. Addendum: 07/22/19 at 0838 by Mercedez Rocha RN edit: remove patient refusing bed alarm. Bed alarm is on, bed is in low and locked position, side rails are padded.
--- NOTE | 2019-07-22 08:50 | NUR ---
Received patient from [facility] nurse. Patient sleeping, padded side rails in place. Call light with in reach.
--- NOTE | 2019-07-22 08:50 | NUR ---
Closing Note SBAR report given to Lena MURDOCK, patient resting in bed, respirations even and unlabored on 2L nasal cannula, no acute distress noted, call light in reach, bed in low and locked position, bed alarm on.
[2019-07-22 08:55] LABS: ALANINE AMINOTRANSFERASE 78 U/L (12-78); ALBUMIN 1.3 g/dL (3.4-4.8); ANION GAP 4 (5-15); ASPARTATE AMINOTRANSFERASE 35 U/L (10-37); CALCIUM 8.1 mg/dL (8.4-11.0); CHLORIDE 101 mmol/L (98-107); CREATININE 0.53 mg/dL (0.55-1.30); GLUCOSE 84 mg/dL (70-99); PHOSPHORUS 2.5 mg/dL (2.7-4.5); POTASSIUM 4.4 mmol/L (3.5-5.1); SODIUM SERUM 130 mmol/L (136-145); TOTAL BILIRUBIN 0.6 mg/dL (0.0-1.0); UREA NITROGEN, BLOOD 14 mg/dL (8-21)
[2019-07-22 08:59] LABS: PROTHROMBIN TIME 10.1 SECS (9.5-12.5)
[2019-07-22] MEDS: MULTIVITAMINS TAB 1 TABLET PO SCH (09:00)
[2019-07-22] MEDS: DOCUSATE SODIUM 100 MG CAPSULE PO SCH ×2 (09:00→21:51)
[2019-07-22] MEDS: ASCORBIC ACID 500 MG TABLET PO SCH ×2 (09:00→21:49)
[2019-07-22] MEDS: PANTOPRAZOLE SODIUM 40 MG/VIAL (PROTONIX) IVP SCH (09:34)
[2019-07-22] MEDS: LIDOCAINE PATCH 5% 1 EA TP SCH (09:34)
[2019-07-22] MEDS: levETIRAcetam 500 MG in NS 100 ML IV SCH ×2 (09:34→21:53)
[2019-07-22] MEDS: PEG 400/HYPROMELLOSE/GLYCERIN 15 ML DROPS EACH EYE SCH ×4 (09:35→21:53)
[2019-07-22] MEDS: BALSAM PERU/CASTOR OIL 60 GM OINT...G. TP SCH (09:35)
[2019-07-22] MEDS ORDERED: HYDROmorphone 1 MG INJ. 1 MG/ML AMPUL IVP ONE (12:00)
--- NOTE | 2019-07-22 12:00 | NUR ---
MD Fallon at bedside. Reported to MD patient still in pain 7/10 generalized pain using FLACC assessment, patient stating can't feel legs, and patient having increasing anxiety. MD Fallon stated will put in an order for 1 time dose of Dilaudid and Ativan IVP. Requested restraints for patient attempting to pull of leads, lines, and tubes, MD Fallon approved bilateral wrist restraints. MD Fallon approved renewal of armstrong catheter due to sacrum wound and to keep current PICC present in place due to IV antibiotics use, TPN, and lipids. Orders placed.
--- NOTE | 2019-07-22 12:06 | NUR ---
CONSULTATION PAGED REASON FOR CONSULTATION:SAD WAS CONSULT CALLED?Y PERSON WHO WAS NOTIFIED:RAJEEV CONSULTING PHYSICIAN:SHAMEKA RAMON ( NEUROPHYSIOLOGIST) GENERAL LITHOGRAPHIC WORKER SPECIALTY:PSYCH GENERAL LITHOGRAPHIC WORKER PHONE NUMBER:[phone] ORDERING PHYSICIAN:WENDY FOREMAN
--- NOTE | 2019-07-22 12:30 | NUR ---
DC Planning: EGD and PEG placement done this am. The discharge is pending GT feeding.
--- NOTE | 2019-07-22 12:34 | NUR ---
PAGED PAGED TRAVIS MAYORGA AT [phone] SPOKE WITH VALENTIN.
[2019-07-22 12:59] VITALS: BP_SYST 101
[2019-07-22] MEDS ORDERED: NA PHOS 15 MM in NS 250 ML IV ONE (15:00)
[2019-07-22 16:45] VITALS: BP_SYST 110
--- NOTE | 2019-07-22 16:50 | NUR ---
2ND PAGE OUT TO TRAVIS MENDOZA AT [phone] SPOKE WITH ARLYN
--- NOTE | 2019-07-22 17:02 | NUR ---
MD Robles called back. Requested verification of GT site use orders. MD Robles stated use Jevity 1.2 but if not available may use Jevity 1.5, water flushes 100 ml every 8 hours, may use GT site for medication use. Orders placed, kitchen notified.
--- NOTE | 2019-07-22 18:00 | NUR ---
Placement of GT assessed with auscultation of stethoscope. Started jevity 1.2 at 10 ml an hour as ordered via GT. Patient tolerating feeding well.
--- NOTE | 2019-07-22 19:20 | NUR ---
Endorsed patient to NOC shift nurse. Patient sleeping in bed with padded side rails in place. Call light with in reach.
[2019-07-22 20:00] VITALS: BP_SYST 131
--- NOTE | 2019-07-22 20:33 | NUR ---
Patient turned repositioned q2. No acute distress noted. HOB elevated. Gtube patent and intact. No residuAL noted, Will continue to monitor.
[2019-07-22] MEDS ORDERED: [UNRECOGNIZED DRUG - OTHER] IV SCH ×8 (21:00)
[2019-07-22] MEDS ORDERED: SODIUM CHLORIDE IV SCH ×8 (21:00)
[2019-07-22] MEDS ORDERED: TPN PERIPHERAL IV SCH ×8 (21:00)
[2019-07-22] MEDS ORDERED: K PHOS IV SCH ×8 (21:00)
[2019-07-23 00:39] VITALS: BP_SYST 115
[2019-07-23] MEDS: ALBUTEROL SULFATE 0.083% 2.5 MG/3 ML VIAL.NEB INH SCH ×5 (03:00→23:36)
[2019-07-23 07:17] LABS: BASOPHILS # (AUTO) 0.1 K/uL (0.0-0.2); BASOPHILS % (AUTO) 0.6 % (0.0-2.0); EOSINOPHILS # (AUTO) 0.2 K/uL (0.0-0.4); EOSINOPHILS % (AUTO) 1.8 % (0.0-4.0); HEMATOCRIT 31.1 % (36-48); LYMPHOCYTES # (AUTO) 1.2 K/uL (1.0-5.5); MEAN CORPUSCULAR HEMOGLOBIN 28 pg (27-31); MEAN CORPUSCULAR HGB CONC 32 % (32-36); MEAN CORPUSCULAR VOLUME 88 fL (79.0-98.0); MONOCYTES # (AUTO) 0.7 K/uL (0.0-1.0); MONOCYTES % (AUTO) 6.2 % (1.7-9.3); NEUTROPHILS % (AUTO) 80.4 % (40.0-70.0); PLATELET COUNT (AUTO) 231 K/uL (130-430); RED BLOOD CELL COUNT(AUTO) 3.56 MIL/uL (4.2-6.2); RED CELL DISTRIBUTION WIDTH 17.1 % (9.0-15.0); WHITE BLOOD COUNT (AUTO) 11.2 K/uL (4.8-10.8)
[2019-07-23 07:45] LABS: ALANINE AMINOTRANSFERASE 56 U/L (12-78); ALBUMIN 1.1 g/dL (3.4-4.8); ANION GAP 6 (5-15); ASPARTATE AMINOTRANSFERASE 26 U/L (10-37); CHLORIDE 103 mmol/L (98-107); CREATININE 0.47 mg/dL (0.55-1.30); GLUCOSE 120 mg/dL (70-99); PHOSPHORUS 2.8 mg/dL (2.7-4.5); POTASSIUM 4.1 mmol/L (3.5-5.1); SODIUM SERUM 133 mmol/L (136-145); TOTAL BILIRUBIN 0.5 mg/dL (0.0-1.0); UREA NITROGEN, BLOOD 14 mg/dL (8-21)
[2019-07-23 08:00] VITALS: BP_SYST 136
--- NOTE | 2019-07-23 08:00 | NUR ---
AM ASSESSMENT. PT CALLING OUT FOR HELP WHILE ON NEBULIZER TREATMENT, APPROACHED PT, STATED "TAKE THIS OUT", EDUCATED PT ON CURRENT PLAN OF CARE, PT CONFUSED, KEPT ON SCREAMING "TAKE THIS OUT", WHEN TREATMENT COMPLETED, PT CAN BE HEARD SCREAMING FOR HELP, NURSING STAFF AT BEDSIDE, PT WAS REPOSITIONED, SHE SPIT OUT SOME PHLEGM, ORAL HYGIENE FOLLOWED. CONTINUE TO MONITOR PT.
--- NOTE | 2019-07-23 08:30 | NUR ---
G.I. SPECIALIST. DR GALLEGOS CAME IN TO EVALUATE PT. FEEDING CAN BE INCREASED TO 50 ML HR, MAY DISCONTINUE PPN.
[2019-07-23] MEDS: MULTIVITAMINS TAB 1 TABLET PO SCH (08:57)
[2019-07-23] MEDS: LORazepam 2 MG/ML VIAL IVP PRN ×2 (08:57→16:27)
[2019-07-23] MEDS: PANTOPRAZOLE SODIUM 40 MG/VIAL (PROTONIX) IVP SCH (08:57)
[2019-07-23] MEDS: LIDOCAINE PATCH 5% 1 EA TP SCH (08:57)
[2019-07-23] MEDS: ASCORBIC ACID 500 MG TABLET PO SCH ×2 (08:57→22:08)
[2019-07-23] MEDS: DOCUSATE SODIUM 100 MG CAPSULE PO SCH ×2 (08:57→22:09)
--- NOTE | 2019-07-23 08:57 | NUR ---
ANXIETY. PT AGITATED WHEN APPROACHED, VOICE LOUD, SPIT OUT PHLEGM DURING INTERACTION, CLEANED FACE WITH TOWEL, MEDICATED PT WITH ATIVAN 0.5 MG IVP FOR RELAXATION.
[2019-07-23] MEDS: PEG 400/HYPROMELLOSE/GLYCERIN 15 ML DROPS EACH EYE SCH ×4 (09:00→22:11)
--- NOTE | 2019-07-23 09:00 | NUR ---
DIET. G TUBE FEEDING INCREASED TO 50 ML PER HR, ABDOMEN SOFT ON PALPATION, ABDOMINAL BINDER RELEASED. PPN DISCONTINUED.
[2019-07-23] MEDS: BALSAM PERU/CASTOR OIL 60 GM OINT...G. TP SCH (09:01)
[2019-07-23] MEDS: levETIRAcetam 500 MG in NS 100 ML IV SCH ×2 (09:06→22:08)
--- NOTE | 2019-07-23 10:00 | NUR ---
NURSING. REPOSITIONED PT, CALM AT THIS HOUR.
--- NOTE | 2019-07-23 11:00 | NUR ---
REST. PT SLEEPING AT THIS HOUR.
--- NOTE | 2019-07-23 13:13 | NUR ---
Discharge Planning: DCP faxed pt referral to [facility] (f [phone] p [phone]) DCP to follow up.
[2019-07-23 15:21] VITALS: BP_SYST 107
--- NOTE | 2019-07-23 16:00 | NUR ---
SKIN CARE. TURNED PT TO HER SIDE,DRESSING CHANGED TO SACRAL AREA, WOUND BED 20% PINK, 40% WHITE, 40% BLACK, MEASUREMENT 9 CM X 10 CM, PT TOLERATED TREATMENT. CLEANSED WITH SALINE, HYDROGEL, VENELEX OINTMENT TO WOUND, MOISTURE BARRIER CREAM TO EDGES AND COVERED WITH FOAM DRESSING.
--- NOTE | 2019-07-23 16:27 | NUR ---
ANXIETY. HEARD PT SCREAMING, "HELP ME", "HELP ME", NEEDS ASSESSED, PT CONFUSED, MAKING GURGLING NOISE, ORAL SUCTIONING DONE, PT BITES DOWN TO THE YANKAUER, THEN WOULD KEEP HER MOUTH OPENED, ATIVAN 0.5 MG IVP GIVEN.
--- NOTE | 2019-07-23 17:00 | NUR ---
LOC. PT ASLEEP AT THIS HOUR, FEEDING CONTINUES VIA GTUBE AT 50 ML PER HR.
--- NOTE | 2019-07-23 18:00 | NUR ---
DIET. GASTRIC RESIDUAL CHECKED, 110 ML OBTAINED AND RETURNED. FEEDING CONTINUES. HEAD OF BED ELEVATED.
--- NOTE | 2019-07-23 19:35 | NUR ---
Pt is awake and not in any distress. Oxygen is on at 2L/min via NC. BALDO PICC double lumens and saline locked noted with the dressing dry and intact. GTF is infusing well at 50ml/hr and abdominal binder is on. Bilateral soft wrist restraints are on and no circulatory impairment noted. Nagel cath to gravity drainage noted with yellowish urine. Fall, seizure, aspiration, contact isolation and safety precautions are in place.
[2019-07-23 20:00] VITALS: BP_SYST 143
--- NOTE | 2019-07-23 21:00 | NUR ---
Pt is resting quietly in bed and tolerating GTF well. Fall, seizure, aspiration, contact isolation and safety precautions are in place.
--- NOTE | 2019-07-23 22:11 | NUR ---
Accucheck 132 and no Insulin coverage needed. Skin is warm and dry to touch. GTF is infusing well. Fall, seizure, aspiration, contact isolation and safety precautions are in place.
[2019-07-24] VITALS (7 sets, daily range): BP systolic 114–135
--- NOTE | 2019-07-24 00:30 | NUR ---
Pt is sleeping comfortably in bed. GTF is infusing well. Fall, seizure, aspiration, contact isolation and safety precautions are in place.
--- NOTE | 2019-07-24 02:30 | NUR ---
Pt continues to sleep without any distress noted. GTF is infusing well. Fall, seizure, aspiration, contact isolation and safety precautions are in place.
[2019-07-24] MEDS: ALBUTEROL SULFATE 0.083% 2.5 MG/3 ML VIAL.NEB INH SCH ×5 (03:00→19:55)
[2019-07-24] MEDS: LORazepam 2 MG/ML VIAL IVP PRN (03:13)
--- NOTE | 2019-07-24 03:13 | NUR ---
Pt very anxious and yelling out loud, "Help me" continuously. Pt is confused and oriented to her name only. All pt's needs met. Ativan 0.5mg given IV. Fall, seizure, aspiration, contact isolation and safety precautions are in place.
--- NOTE | 2019-07-24 04:48 | NUR ---
Pt is sleeping comfortably in bed. GTF is infusing well. Fall, seizure, aspiration, contact isolation and safety precautions are in place.
--- NOTE | 2019-07-24 06:50 | NUR ---
Pt is awake and resting quietly in bed. All pt's needs were attended to. PICC is intact in BALDO. Fall, seizure, contact isolation and safety precautions are in place. GTF is infusing well. Will endorse to day shift nurse.
--- NOTE | 2019-07-24 07:20 | NUR ---
Opening Note Received bedside report from endorsing RN for continuation of care. Received patient resting in bed, no signs or symptoms of acute distress noted. Bed locked in lowest position and bed alarm on. Fall and safety precautions in place.
--- NOTE | 2019-07-24 09:00 | NUR ---
Patient suctioned, cleaned, turned, and repositioned. No signs or symptoms of acute distress noted. Safety precautions in place.
[2019-07-24] MEDS: BALSAM PERU/CASTOR OIL 60 GM OINT...G. TP SCH (09:36)
[2019-07-24] MEDS: MULTIVITAMINS TAB 1 TABLET PO SCH (09:37)
[2019-07-24] MEDS: DOCUSATE SODIUM 100 MG CAPSULE PO SCH (09:37)
[2019-07-24] MEDS: PEG 400/HYPROMELLOSE/GLYCERIN 15 ML DROPS EACH EYE SCH ×3 (09:37→18:12)
[2019-07-24] MEDS: ASCORBIC ACID 500 MG TABLET PO SCH (09:37)
[2019-07-24] MEDS: PANTOPRAZOLE SODIUM 40 MG/VIAL (PROTONIX) IVP SCH (09:37)
[2019-07-24] MEDS: levETIRAcetam 500 MG in NS 100 ML IV SCH (09:37)
[2019-07-24] MEDS: LIDOCAINE PATCH 5% 1 EA TP SCH (09:37)
--- NOTE | 2019-07-24 10:40 | NUR ---
Discharge Planning: Per [facility] (f [phone] p [phone]) patient is accepted at [facility]. DCP made CM and nurse aware.
--- NOTE | 2019-07-24 12:16 | NUR ---
Dr. Domingo at bedside examining patient. Per Dr. Domingo, patient cleared to be discharged to [facility].
--- NOTE | 2019-07-24 14:00 | NUR ---
Wound Care Wound care done per wound care guidelines with car salesperson Kal. Patient tolerated well with minimal discomfort. No signs or symptoms of acute distress noted. Addendum: 07/24/19 at 1842 by April Skinner RN Photographs taken and placed in chart.
--- NOTE | 2019-07-24 16:45 | NUR ---
Patient resting in bed, cleaned, turned, and repositioned. No signs or symptoms of acute distress noted.
--- NOTE | 2019-07-24 18:00 | NUR ---
Report called to Aylin Johnson and given to Rajwinder MURDOCK at 1800.
--- NOTE | 2019-07-24 18:05 | NUR ---
Patient cleaned, turned, and repositioned. No signs or symptoms of acute distress noted. Fall and safety precautions in place.
--- NOTE | 2019-07-24 18:20 | NUR ---
CALLED MEDIC-[facility] I CALLED MED[facility] AT 1820 I SPOKE WITH JESUS PORCELAIN MIXER MED[facility] AVAILABLE TO FILLING TECHNICIAN PATIENT AT 2100
--- NOTE | 2019-07-24 19:05 | NUR ---
Endorsement Endorsed bedside report to oncoming RN using SBAR approach for continuation of care.
--- NOTE | 2019-07-24 19:30 | NUR ---
Late Entry due to patient care Pt was received lying in bed awake and confused. No acute distress noted at this time. Oxygen is on at 2L/min via NC. BALDO PICC with double lumens are saline locked with the dressing dry and intact. GTF is infusing well at 50ml/hr and abdominal binder is in place. Nagel cath to gravity drainage noted with liza colored urine. Fall, seizure, aspiration, contact isolation and safety precautions are in place.
--- NOTE | 2019-07-24 21:25 | NUR ---
Pt was transferred to [facility] via Ambulance in stable condition. Prior to her transfer, both lumens of PICC in [facility] were each flushed with 10ml normal saline and capped. G tube was clamped after it was flushed with 50ml water. monitoring manager was removed and given to [employer] M[employer] Developer. Wrist ID band was removed and placed in the shredder. Plain ID band was applied to pt's wrist.
== END 2019-07-24 21:25 | DRG 690 ==
LOC: SED 17:22 → SMU 23:42 → STU 07-17 11:32
PROVIDERS: ADMIT Internal Medicine; ATTEND Internal Medicine
PROC: 3E0336Z Introduction of Nutritional Substance into Peripheral Vein, Percutaneous Approach (ICD-10-PCS; 2019-07-19)
PROC: 0DH68UZ Insertion of Feeding Device into Stomach, Via Natural or Artificial Opening Endoscopic (ICD-10-PCS; principal; 2019-07-22 07:00)
DX: N39.0 Urinary tract infection, site not specified (principal); J44.0 Chronic obstructive pulmonary disease with (acute) lower respiratory infection; Z16.24 Resistance to multiple antibiotics; Z16.12 Extended spectrum beta lactamase (ESBL) resistance; E44.0 Moderate protein-calorie malnutrition; E86.0 Dehydration; E78.00 Pure hypercholesterolemia, unspecified; E78.5 Hyperlipidemia, unspecified; G40.909 Epilepsy, unspecified, not intractable, without status epilepticus; I48.0 Paroxysmal atrial fibrillation; E87.6 Hypokalemia; M81.0 Age-related osteoporosis without current pathological fracture; K57.90 Diverticulosis of intestine, part unspecified, without perforation or abscess without bleeding; L89.90 Pressure ulcer of unspecified site, unspecified stage; B96.20 Unspecified Escherichia coli [E. coli] as the cause of diseases classified elsewhere; K29.70 Gastritis, unspecified, without bleeding; R13.10 Dysphagia, unspecified; R62.7 Adult failure to thrive; Z86.73 Personal history of transient ischemic attack (TIA), and cerebral infarction without residual deficits; Z90.49 Acquired absence of other specified parts of digestive tract; Z95.0 Presence of cardiac pacemaker; Z90.10 Acquired absence of unspecified breast and nipple; Z79.899 Other long term (current) drug therapy; Z87.891 Personal history of nicotine dependence; Z85.3 Personal history of malignant neoplasm of breast; Z68.27 Body mass index [BMI] 27.0-27.9, adult
CPT/HCPCS: 36415; 43246; 71045; 74018; 76700-TC; 80053; 80074; 81000-TC; 82140-TC; 82607; 82746; 82962; 83605; 83735-TC; 83880; 84100-TC; 84134; 84443-TC; 84478-TC; 84484; 85025; 85610-TC; 85730-TC; 86710; 87040-TC; 87081; 87086; 87186-TC; 92610-GN; 93005; 93970; 94640; 94760; 96361; 96365; 96367; 96375; 99285; C1751; C1769; C9113; G0378; J0456; J0690; J1170; J1815; J1953; J2060; J2270; J2543; J3475; J3480; J7030; J7050; J7060; J7131; J7613

== ENCOUNTER 2019-10-31 04:48 | Inpatient (IN) | payer OTHER, SELFPAY ==
[~2019-10-31] VITALS: Ht 170.2 cm; Wt 87.3 kg
[~2019-10-31 04:48] MED LIST changes: +ASCO500T20 GT; -ASCO500T20 PO; +DOCU-144 GT; -DOCU-144 PO; +LEVE500T53 GT; -LEVE500T53 PO; +MULT-1117 GT; -MULT-1117 PO; +SIMV20TA2 GT; -SIMV20TA2 PO
[2019-10-31 04:50] VITALS: BP_SYST 126
[2019-10-31] MEDS ORDERED: VANCOMYCIN HCL 1,000 MG in D5W 250 ML IV ONE (05:15)
[2019-10-31] MEDS ORDERED: PIPERACILLIN/TAZO 3.38 GM in D5W 50 ML IV ONE (05:15)
[2019-10-31] MEDS ORDERED: CAT.1 GT (05:16)
[2019-10-31 05:19] LABS: HEMATOCRIT 31.3 % (36-48); HEMOGLOBIN 9.6 g/dL (12.0-16.0); MEAN CORPUSCULAR HEMOGLOBIN 27 pg (27-31); MEAN CORPUSCULAR HGB CONC 31 % (32-36); MEAN CORPUSCULAR VOLUME 87 fL (79.0-98.0); PLATELET COUNT (AUTO) 365 K/uL (130-430); RED CELL DISTRIBUTION WIDTH 19.1 % (9.0-15.0); WHITE BLOOD COUNT (AUTO) 21.1 K/uL (4.8-10.8)
[2019-10-31] MEDS ORDERED: LANS15CA19 GT (05:29)
[2019-10-31] MEDS ORDERED: POLY17PO4 GT (05:29)
[2019-10-31] MEDS ORDERED: HYDR-3110 GT (05:29)
[2019-10-31] MEDS ORDERED: FURO-149 GT (05:29)
[2019-10-31] MEDS ORDERED: ALBU8.5H8 INH (05:29)
[2019-10-31 05:33] LABS: PROTHROMBIN TIME 10.4 SECS (9.5-12.5)
[2019-10-31 05:39] LABS: BAND % (MANUAL) 0 % (0-6)
[2019-10-31 05:40] LABS: ATYPICAL LYMPHOCYTES % 0 % (0-0); BASOPHILS % (MANUAL) 0 % (0-2); EOSINOPHILS % (MANUAL) 2 % (0-7); LYMPHOCYTES % (MANUAL) 11 % (20-46); MONOCYTES % (MANUAL) 2 % (0-11)
[2019-10-31 05:47] LABS: ANION GAP 2 (5-15); CHLORIDE 108 mmol/L (98-107); CREATININE 3.56 mg/dL (0.55-1.30); GLUCOSE 157 mg/dL (70-99); POTASSIUM 3.8 mmol/L (3.5-5.1); SODIUM SERUM 150 mmol/L (136-145)
[2019-10-31] MEDS ORDERED: PIPERACILLIN/TAZOBACTAM 3.375 GM/VIAL (ZOSYN) IV ONE (05:48)
[2019-10-31] MEDS ORDERED: VANCOMYCIN HCL 1000 MG/VIAL IV ONE (05:49)
[2019-10-31 05:51] LABS: ALANINE AMINOTRANSFERASE 50 U/L (12-78); ALBUMIN 2.4 g/dL (3.4-4.8); ASPARTATE AMINOTRANSFERASE 27 U/L (10-37); TOTAL BILIRUBIN 0.5 mg/dL (0.0-1.0)
[2019-10-31 05:55] LABS: CALCIUM 14.8 mg/dL (8.4-11.0); UREA NITROGEN, BLOOD 149 mg/dL (8-21)
[2019-10-31] MEDS ORDERED: NACL 0.9% 1,000 ML IV ONE (06:00)
[2019-10-31] MEDS ORDERED: FUROSEMIDE 20 MG/2 ML VIAL IVP ONE (06:15)
[2019-10-31 06:24] LABS: BILIRUBIN,URINE NEGATIVE (NEGATIVE); BLOOD, URINE 2+ (NEGATIVE); CLARITY/URINE TURBID (CLEAR); COLOR,URINE YELLOW (YELLOW); GLUCOSE,URINE NEGATIVE (NEGATIVE); KETONES,URINE NEGATIVE (NEGATIVE); LEUKOCYTE ESTERASE ,URINE 3+ (NEGATIVE); NITRITE, URINE NEGATIVE (NEGATIVE); PROTEIN URINE 1+ (NEGATIVE); UROBILINOGEN,URINE 0.2 (0.2-1.0)
[2019-10-31 06:57] LABS: BACTERIA,URINE MANY /HPF (None Seen); RBC,URINE 20-50 /HPF (0-3); WBC,URINE >100 /HPF (0-3)
[2019-10-31 06:58] LABS: URINE AMORPHOUS URATE 1+ /HPF (None Seen)
[2019-10-31 11:00] VITALS: BP_SYST 101
[2019-10-31] MEDS ORDERED: NS 500 ML IV ONE (12:00)
[2019-10-31] MEDS: PIPERACILLIN/TAZO 2.25G/DEX-IS 50 ML IV SCH ×2 (14:00→22:13)
[2019-10-31] MEDS: PEG 400/HYPROMELLOSE/GLYCERIN 15 ML DROPS EACH EYE SCH (14:45)
[2019-10-31 16:03] VITALS: BP_SYST 116
[2019-10-31] MEDS ORDERED: HYDROcodone/ACETAMIN 5-325 MG TAB (NORCO/ VICODIN) GT PRN (17:30)
[2019-10-31] MEDS ORDERED: NON-FORMULARY MEDICATION (Hydrocodone Bit/Acetaminophen (Hydrocodon-Acetaminophen 5-300) 1 GT PRN (17:30)
[2019-10-31] MEDS ORDERED: cloNIDine HCL 0.1 MG TABLET GT PRN (17:30)
[2019-10-31] MEDS ORDERED: ACETAMINOPHEN 650 MG/20.3 ML UDC GT PRN (17:30)
[2019-10-31] MEDS ORDERED: ALBUTEROL MDI INHALATION 8 GM INH INH PRN (17:30)
[2019-10-31] MEDS ORDERED: ONDANSETRON HCL 4 MG/2 ML VIAL IVP PRN (17:30)
[2019-10-31 21:00] VITALS: BP_SYST 143
[2019-10-31] MEDS: levETIRAcetam 500 MG TABLET GT SCH (22:14)
[2019-10-31] MEDS: SIMVASTATIN 20 MG TABLET GT SCH (22:14)
[2019-10-31] MEDS: DOCUSATE SODIUM 100 MG/10 ML UDC GT SCH (22:15)
[2019-10-31] MEDS: D5NS 1,000 ML IV SCH (22:15)
[2019-11-01 02:06] VITALS: BP_SYST 137
[2019-11-01] MEDS: PIPERACILLIN/TAZO 2.25G/DEX-IS 50 ML IV SCH ×3 (05:02→22:00)
[2019-11-01 08:00] VITALS: BP_SYST 115
[2019-11-01 08:26] LABS: BASOPHILS # (AUTO) 0.1 K/uL (0.0-0.2); BASOPHILS % (AUTO) 0.3 % (0.0-2.0); EOSINOPHILS # (AUTO) 0.4 K/uL (0.0-0.4); EOSINOPHILS % (AUTO) 2.5 % (0.0-4.0); HEMATOCRIT 27.5 % (36-48); HEMOGLOBIN 8.5 g/dL (12.0-16.0); LYMPHOCYTES # (AUTO) 1.8 K/uL (1.0-5.5); LYMPHOCYTES % (AUTO) 10.7 % (20.5-51.5); MEAN CORPUSCULAR HEMOGLOBIN 27 pg (27-31); MEAN CORPUSCULAR HGB CONC 31 % (32-36); MEAN CORPUSCULAR VOLUME 88 fL (79.0-98.0); MONOCYTES # (AUTO) 0.9 K/uL (0.0-1.0); MONOCYTES % (AUTO) 5.4 % (1.7-9.3); NEUTROPHILS # (AUTO) 13.4 K/uL (1.8-7.7); NEUTROPHILS % (AUTO) 81.1 % (40.0-70.0); PLATELET COUNT (AUTO) 233 K/uL (130-430); RED BLOOD CELL COUNT(AUTO) 3.13 MIL/uL (4.2-6.2); WHITE BLOOD COUNT (AUTO) 16.6 K/uL (4.8-10.8)
[2019-11-01] MEDS: DOCUSATE SODIUM 100 MG/10 ML UDC GT SCH ×2 (09:00→21:00)
[2019-11-01] MEDS: POLYETHYLENE GLYCOL 3350, 17 GM/ POWD.PACK GT SCH (09:00)
[2019-11-01] MEDS ORDERED: FUROSEMIDE 40 MG TABLET GT SCH (09:00)
[2019-11-01 09:05] LABS: ALANINE AMINOTRANSFERASE 31 U/L (12-78); ALBUMIN 1.8 g/dL (3.4-4.8); ANION GAP 3 (5-15); ASPARTATE AMINOTRANSFERASE 18 U/L (10-37); C-REACTIVE PROTEIN QUANT 8.9 mg/dL (0-0.5); CHLORIDE 112 mmol/L (98-107); CREATININE 3.26 mg/dL (0.55-1.30); GLUCOSE 161 mg/dL (70-99); PHOSPHORUS 5.7 mg/dL (2.7-4.5); POTASSIUM 3.5 mmol/L (3.5-5.1); SODIUM SERUM 149 mmol/L (136-145); TOTAL BILIRUBIN 0.4 mg/dL (0.0-1.0)
[2019-11-01 09:10] LABS: CALCIUM 12.5 mg/dL (8.4-11.0)
[2019-11-01 09:11] LABS: UREA NITROGEN, BLOOD 129 mg/dL (8-21)
[2019-11-01] MEDS ORDERED: ALBUTEROL SULFATE 0.083% 2.5 MG/3 ML VIAL.NEB INH PRN (09:15)
[2019-11-01 09:25] LABS: ERYTHROCYTE SEDIMENTATION RATE 59 MM/HR (0-20)
[2019-11-01] MEDS ORDERED: NACL 0.9% 1,000 ML IV ONE (09:30)
[2019-11-01] MEDS: LANSOPRAZOLE 30 MG CAPSULE.DR GT SCH (10:24)
[2019-11-01] MEDS: MULTIVITAMINS TAB 1 TABLET GT SCH (10:24)
[2019-11-01] MEDS: ASCORBIC ACID 500 MG TABLET GT SCH (10:24)
[2019-11-01] MEDS: levETIRAcetam 500 MG TABLET GT SCH ×2 (10:25→21:00)
[2019-11-01 12:00] VITALS: BP_SYST 111
[2019-11-01] MEDS ORDERED: BALSAM PERU/CASTOR OIL 60 GM OINT...G. TP ONE (15:00)
[2019-11-01 16:00] VITALS: BP_SYST 128
[2019-11-01] MEDS: D5NS 1,000 ML IV SCH (19:03)
[2019-11-01 20:00] VITALS: BP_SYST 114
[2019-11-01] MEDS: PEG 400/HYPROMELLOSE/GLYCERIN 15 ML DROPS EACH EYE SCH (21:00)
[2019-11-01] MEDS: SIMVASTATIN 20 MG TABLET GT SCH (21:00)
[2019-11-02] VITALS: BP_SYST 112
[2019-11-02] MEDS: D5NS 1,000 ML IV SCH ×2 (01:43→08:23)
[2019-11-02] MEDS: PIPERACILLIN/TAZO 2.25G/DEX-IS 50 ML IV SCH ×3 (05:23→22:02)
[2019-11-02 06:43] LABS: BASOPHILS % (AUTO) 0.3 % (0.0-2.0); EOSINOPHILS # (AUTO) 0.4 K/uL (0.0-0.4); EOSINOPHILS % (AUTO) 3.6 % (0.0-4.0); HEMATOCRIT 24.3 % (36-48); HEMOGLOBIN 7.7 g/dL (12.0-16.0); LYMPHOCYTES # (AUTO) 1.5 K/uL (1.0-5.5); LYMPHOCYTES % (AUTO) 12.3 % (20.5-51.5); MEAN CORPUSCULAR HEMOGLOBIN 27 pg (27-31); MEAN CORPUSCULAR HGB CONC 32 % (32-36); MEAN CORPUSCULAR VOLUME 86 fL (79.0-98.0); MONOCYTES # (AUTO) 0.6 K/uL (0.0-1.0); MONOCYTES % (AUTO) 4.5 % (1.7-9.3); NEUTROPHILS # (AUTO) 9.7 K/uL (1.8-7.7); NEUTROPHILS % (AUTO) 79.3 % (40.0-70.0); PLATELET COUNT (AUTO) 304 K/uL (130-430); RED BLOOD CELL COUNT(AUTO) 2.83 MIL/uL (4.2-6.2); RED CELL DISTRIBUTION WIDTH 18.5 % (9.0-15.0); WHITE BLOOD COUNT (AUTO) 12.2 K/uL (4.8-10.8)
[2019-11-02] MEDS: LORazepam 2 MG/ML VIAL IVP PRN (06:45)
[2019-11-02 06:49] LABS: ALANINE AMINOTRANSFERASE 24 U/L (12-78); ALBUMIN 1.5 g/dL (3.4-4.8); ANION GAP 4 (5-15); ASPARTATE AMINOTRANSFERASE 14 U/L (10-37); C-REACTIVE PROTEIN QUANT 6.7 mg/dL (0-0.5); CALCIUM 11.7 mg/dL (8.4-11.0); CHLORIDE 113 mmol/L (98-107); CREATININE 2.78 mg/dL (0.55-1.30); GLUCOSE 187 mg/dL (70-99); PHOSPHORUS 4.6 mg/dL (2.7-4.5); SODIUM SERUM 150 mmol/L (136-145); TOTAL BILIRUBIN 0.3 mg/dL (0.0-1.0)
[2019-11-02 07:01] LABS: POTASSIUM 2.6 mmol/L (3.5-5.1); UREA NITROGEN, BLOOD 103 mg/dL (8-21)
[2019-11-02 08:00] VITALS: BP_SYST 140
[2019-11-02] MEDS: NACL 0.9% 1,000 ML IV SCH ×3 (08:00→18:59)
[2019-11-02] MEDS ORDERED: NACL 0.9% 1,000 ML IV ONE (08:00)
[2019-11-02 08:02] LABS: ERYTHROCYTE SEDIMENTATION RATE 60 MM/HR (0-20)
[2019-11-02] MEDS: POLYETHYLENE GLYCOL 3350, 17 GM/ POWD.PACK GT SCH (09:00)
[2019-11-02] MEDS: DOCUSATE SODIUM 100 MG/10 ML UDC GT SCH ×2 (09:00→20:22)
[2019-11-02] MEDS: PEG 400/HYPROMELLOSE/GLYCERIN 15 ML DROPS EACH EYE SCH ×4 (09:15→20:22)
[2019-11-02] MEDS: levETIRAcetam 500 MG TABLET GT SCH ×2 (09:15→20:22)
[2019-11-02] MEDS: LANSOPRAZOLE 30 MG CAPSULE.DR GT SCH (09:15)
[2019-11-02] MEDS: BALSAM PERU/CASTOR OIL 60 GM OINT...G. TP SCH (09:16)
[2019-11-02] MEDS: MUPIROCIN 2% TOPICAL OINTMENT 22 GM TP SCH ×2 (09:16→20:22)
[2019-11-02] MEDS: ASCORBIC ACID 500 MG TABLET GT SCH (09:16)
[2019-11-02] MEDS: MULTIVITAMINS TAB 1 TABLET GT SCH (09:16)
[2019-11-02] MEDS ORDERED: POTASSIUM CHLORIDE 20 MEQ/PKT PACKET GT ONE ×2 (09:30→17:00)
[2019-11-02] MEDS: POTASSIUM CHLORIDE 20 MEQ/PKT PACKET GT SCH ×2 (10:26→20:22)
[2019-11-02 12:00] VITALS: BP_SYST 126
[2019-11-02 16:00] VITALS: BP_SYST 132
[2019-11-02 20:00] VITALS: BP_SYST 133
[2019-11-02] MEDS: SIMVASTATIN 20 MG TABLET GT SCH (20:22)
[2019-11-03] VITALS: BP_SYST 138
[2019-11-03] MEDS: LORazepam 2 MG/ML VIAL IVP PRN ×2 (06:43→22:32)
[2019-11-03] MEDS: PIPERACILLIN/TAZO 2.25G/DEX-IS 50 ML IV SCH ×2 (06:44→14:00)
[2019-11-03] MEDS: NACL 0.9% 1,000 ML IV SCH (06:46)
[2019-11-03 07:41] LABS: BASOPHILS # (AUTO) 0.1 K/uL (0.0-0.2); BASOPHILS % (AUTO) 0.5 % (0.0-2.0); EOSINOPHILS # (AUTO) 0.4 K/uL (0.0-0.4); EOSINOPHILS % (AUTO) 3.1 % (0.0-4.0); HEMATOCRIT 25.4 % (36-48); LYMPHOCYTES # (AUTO) 1.4 K/uL (1.0-5.5); LYMPHOCYTES % (AUTO) 11.1 % (20.5-51.5); MEAN CORPUSCULAR HEMOGLOBIN 27 pg (27-31); MEAN CORPUSCULAR HGB CONC 32 % (32-36); MEAN CORPUSCULAR VOLUME 87 fL (79.0-98.0); MONOCYTES # (AUTO) 0.6 K/uL (0.0-1.0); MONOCYTES % (AUTO) 4.5 % (1.7-9.3); NEUTROPHILS # (AUTO) 10.5 K/uL (1.8-7.7); NEUTROPHILS % (AUTO) 80.8 % (40.0-70.0); PLATELET COUNT (AUTO) 340 K/uL (130-430); RED BLOOD CELL COUNT(AUTO) 2.93 MIL/uL (4.2-6.2)
[2019-11-03 08:11] LABS: ALANINE AMINOTRANSFERASE 28 U/L (12-78); ALBUMIN 1.7 g/dL (3.4-4.8); ASPARTATE AMINOTRANSFERASE 16 U/L (10-37); C-REACTIVE PROTEIN QUANT 4.9 mg/dL (0-0.5); GLUCOSE 129 mg/dL (70-99); POTASSIUM 3.8 mmol/L (3.5-5.1); SODIUM SERUM 152 mmol/L (136-145); TOTAL BILIRUBIN 0.3 mg/dL (0.0-1.0); UREA NITROGEN, BLOOD 86 mg/dL (8-21)
[2019-11-03 08:34] LABS: TOTAL IRON BIND. CAPACITY 138 ug/dL (250-450)
[2019-11-03 08:42] LABS: CHLORIDE 120 mmol/L (98-107)
[2019-11-03 08:43] LABS: ANION GAP < 3 (5-15)
[2019-11-03 08:44] LABS: ERYTHROCYTE SEDIMENTATION RATE 70 MM/HR (0-20)
[2019-11-03 08:45] VITALS: BP_SYST 114
[2019-11-03] MEDS: DOCUSATE SODIUM 100 MG/10 ML UDC GT SCH ×2 (09:55→20:51)
[2019-11-03] MEDS: LANSOPRAZOLE 30 MG CAPSULE.DR GT SCH (09:56)
[2019-11-03] MEDS: levETIRAcetam 500 MG TABLET GT SCH ×2 (09:56→20:51)
[2019-11-03] MEDS: POTASSIUM CHLORIDE 20 MEQ/PKT PACKET GT SCH ×2 (09:56→20:51)
[2019-11-03] MEDS: MULTIVITAMINS TAB 1 TABLET GT SCH (09:57)
[2019-11-03] MEDS: POLYETHYLENE GLYCOL 3350, 17 GM/ POWD.PACK GT SCH (09:57)
[2019-11-03] MEDS: ASCORBIC ACID 500 MG TABLET GT SCH (09:57)
[2019-11-03] MEDS: MUPIROCIN 2% TOPICAL OINTMENT 22 GM TP SCH ×2 (09:58→20:52)
[2019-11-03] MEDS: BALSAM PERU/CASTOR OIL 60 GM OINT...G. TP SCH (09:59)
[2019-11-03] MEDS: PEG 400/HYPROMELLOSE/GLYCERIN 15 ML DROPS EACH EYE SCH ×4 (10:00→20:53)
[2019-11-03 12:54] VITALS: BP_SYST 153
[2019-11-03] MEDS: D5W 1,000 ML IV SCH ×2 (14:01→20:53)
[2019-11-03 16:21] VITALS: BP_SYST 145
[2019-11-03 20:00] VITALS: BP_SYST 132
[2019-11-03] MEDS: SIMVASTATIN 20 MG TABLET GT SCH (20:51)
[2019-11-03] MEDS: LINEZOLID 300 ML IV SCH (20:57)
[2019-11-03] MEDS ORDERED: LINEZOLID 300 ML IV ONE (21:11)
[2019-11-04] MEDS: D5W 1,000 ML IV SCH ×2 (05:30→15:36)
[2019-11-04 07:47] LABS: ALANINE AMINOTRANSFERASE 21 U/L (12-78); ALBUMIN 1.5 g/dL (3.4-4.8); ANION GAP 6 (5-15); ASPARTATE AMINOTRANSFERASE 23 U/L (10-37); C-REACTIVE PROTEIN QUANT 4.6 mg/dL (0-0.5); CALCIUM 11.2 mg/dL (8.4-11.0); CHLORIDE 115 mmol/L (98-107); CREATININE 2.03 mg/dL (0.55-1.30); GLUCOSE 169 mg/dL (70-99); PHOSPHORUS 4.6 mg/dL (2.7-4.5); POTASSIUM 5.5 mmol/L (3.5-5.1); SODIUM SERUM 145 mmol/L (136-145); TOTAL BILIRUBIN 0.2 mg/dL (0.0-1.0); UREA NITROGEN, BLOOD 69 mg/dL (8-21)
[2019-11-04 08:00] VITALS: BP_SYST 153
[2019-11-04 08:32] LABS: BASOPHILS % (AUTO) 0.5 % (0.0-2.0); EOSINOPHILS # (AUTO) 0.3 K/uL (0.0-0.4); HEMATOCRIT 25.4 % (36-48); LYMPHOCYTES # (AUTO) 2.1 K/uL (1.0-5.5); LYMPHOCYTES % (AUTO) 19.8 % (20.5-51.5); MEAN CORPUSCULAR HEMOGLOBIN 28 pg (27-31); MEAN CORPUSCULAR HGB CONC 32 % (32-36); MEAN CORPUSCULAR VOLUME 88 fL (79.0-98.0); MONOCYTES # (AUTO) 0.6 K/uL (0.0-1.0); NEUTROPHILS # (AUTO) 7.5 K/uL (1.8-7.7); NEUTROPHILS % (AUTO) 70.7 % (40.0-70.0); PLATELET COUNT (AUTO) 318 K/uL (130-430); RED BLOOD CELL COUNT(AUTO) 2.89 MIL/uL (4.2-6.2); RED CELL DISTRIBUTION WIDTH 19.3 % (9.0-15.0); WHITE BLOOD COUNT (AUTO) 10.6 K/uL (4.8-10.8)
[2019-11-04] MEDS: PEG 400/HYPROMELLOSE/GLYCERIN 15 ML DROPS EACH EYE SCH ×4 (08:33→21:59)
[2019-11-04] MEDS: MUPIROCIN 2% TOPICAL OINTMENT 22 GM TP SCH ×2 (08:34→21:59)
[2019-11-04] MEDS: DOCUSATE SODIUM 100 MG/10 ML UDC GT SCH ×2 (08:34→21:58)
[2019-11-04] MEDS: levETIRAcetam 500 MG TABLET GT SCH ×2 (08:34→21:58)
[2019-11-04] MEDS: POTASSIUM CHLORIDE 20 MEQ/PKT PACKET GT SCH (08:34)
[2019-11-04] MEDS: MULTIVITAMINS TAB 1 TABLET GT SCH (08:35)
[2019-11-04] MEDS: ASCORBIC ACID 500 MG TABLET GT SCH (08:35)
[2019-11-04] MEDS: LANSOPRAZOLE 30 MG CAPSULE.DR GT SCH (08:35)
[2019-11-04] MEDS: POLYETHYLENE GLYCOL 3350, 17 GM/ POWD.PACK GT SCH (08:35)
[2019-11-04] MEDS: BALSAM PERU/CASTOR OIL 60 GM OINT...G. TP SCH (08:36)
[2019-11-04] MEDS: LINEZOLID 300 ML IV SCH ×2 (08:40→21:50)
[2019-11-04 09:29] LABS: ERYTHROCYTE SEDIMENTATION RATE 66 MM/HR (0-20)
[2019-11-04] MEDS ORDERED: ePHEDrine sulfate 50 MG/ML VIAL ONE (13:05)
[2019-11-04 20:00] VITALS: BP_SYST 144
[2019-11-04] MEDS: SIMVASTATIN 20 MG TABLET GT SCH (21:58)
[2019-11-04] MEDS: HYDROcodone/ACETAMIN 10-325 MG TAB GT PRN (22:30)
[2019-11-05] MEDS: LORazepam 2 MG/ML VIAL IVP PRN ×2 (00:04→23:02)
[2019-11-05 00:48] VITALS: BP_SYST 149
[2019-11-05] MEDS: D5W 1,000 ML IV SCH ×3 (01:53→20:38)
[2019-11-05 06:54] LABS: BASOPHILS # (AUTO) 0.1 K/uL (0.0-0.2); BASOPHILS % (AUTO) 0.8 % (0.0-2.0); EOSINOPHILS # (AUTO) 0.4 K/uL (0.0-0.4); EOSINOPHILS % (AUTO) 3.7 % (0.0-4.0); HEMOGLOBIN 7.6 g/dL (12.0-16.0); LYMPHOCYTES % (AUTO) 18.3 % (20.5-51.5); MEAN CORPUSCULAR HEMOGLOBIN 27 pg (27-31); MEAN CORPUSCULAR HGB CONC 30 % (32-36); MEAN CORPUSCULAR VOLUME 89 fL (79.0-98.0); MONOCYTES # (AUTO) 0.7 K/uL (0.0-1.0); MONOCYTES % (AUTO) 6.1 % (1.7-9.3); NEUTROPHILS # (AUTO) 7.9 K/uL (1.8-7.7); NEUTROPHILS % (AUTO) 71.1 % (40.0-70.0); PLATELET COUNT (AUTO) 306 K/uL (130-430); RED BLOOD CELL COUNT(AUTO) 2.81 MIL/uL (4.2-6.2); RED CELL DISTRIBUTION WIDTH 19.4 % (9.0-15.0); WHITE BLOOD COUNT (AUTO) 11.1 K/uL (4.8-10.8)
[2019-11-05 07:35] LABS: ALANINE AMINOTRANSFERASE 22 U/L (12-78); ALBUMIN 1.4 g/dL (3.4-4.8); ANION GAP 4 (5-15); ASPARTATE AMINOTRANSFERASE 18 U/L (10-37); C-REACTIVE PROTEIN QUANT 3.8 mg/dL (0-0.5); CALCIUM 10.5 mg/dL (8.4-11.0); CHLORIDE 112 mmol/L (98-107); CREATININE 1.99 mg/dL (0.55-1.30); GLUCOSE 194 mg/dL (70-99); PHOSPHORUS 4.9 mg/dL (2.7-4.5); POTASSIUM 4.4 mmol/L (3.5-5.1); SODIUM SERUM 141 mmol/L (136-145); TOTAL BILIRUBIN 0.3 mg/dL (0.0-1.0); UREA NITROGEN, BLOOD 62 mg/dL (8-21)
[2019-11-05] MEDS: POLYETHYLENE GLYCOL 3350, 17 GM/ POWD.PACK GT SCH (10:21)
[2019-11-05] MEDS: levETIRAcetam 500 MG TABLET GT SCH ×2 (10:21→20:14)
[2019-11-05] MEDS: LINEZOLID 300 ML IV SCH ×2 (10:21→20:15)
[2019-11-05] MEDS: MULTIVITAMINS TAB 1 TABLET GT SCH (10:21)
[2019-11-05] MEDS: LANSOPRAZOLE 30 MG CAPSULE.DR GT SCH (10:21)
[2019-11-05] MEDS: DOCUSATE SODIUM 100 MG/10 ML UDC GT SCH ×2 (10:21→20:15)
[2019-11-05] MEDS: ASCORBIC ACID 500 MG TABLET GT SCH (10:21)
[2019-11-05] MEDS: MUPIROCIN 2% TOPICAL OINTMENT 22 GM TP SCH ×2 (10:23→20:14)
[2019-11-05] MEDS: BALSAM PERU/CASTOR OIL 60 GM OINT...G. TP SCH (10:23)
[2019-11-05] MEDS: PEG 400/HYPROMELLOSE/GLYCERIN 15 ML DROPS EACH EYE SCH ×4 (10:24→20:14)
[2019-11-05 12:37] VITALS: BP_SYST 135
[2019-11-05 16:00] VITALS: BP_SYST 138
[2019-11-05 19:40] VITALS: BP_SYST 131
[2019-11-05] MEDS: SIMVASTATIN 20 MG TABLET GT SCH (20:14)
[2019-11-05] MEDS: metroNIDAZOLE 250 mg/NS 50 ML IV SCH (22:23)
[2019-11-06] VITALS: BP_SYST 133
[2019-11-06] MEDS: HYDROcodone/ACETAMIN 10-325 MG TAB GT PRN ×3 (00:05→21:55)
[2019-11-06] MEDS: metroNIDAZOLE 250 mg/NS 50 ML IV SCH ×3 (05:01→21:40)
[2019-11-06 06:36] LABS: BASOPHILS # (AUTO) 0.1 K/uL (0.0-0.2); BASOPHILS % (AUTO) 0.5 % (0.0-2.0); EOSINOPHILS # (AUTO) 0.4 K/uL (0.0-0.4); EOSINOPHILS % (AUTO) 3.2 % (0.0-4.0); HEMATOCRIT 23.1 % (36-48); HEMOGLOBIN 7.3 g/dL (12.0-16.0); LYMPHOCYTES # (AUTO) 1.7 K/uL (1.0-5.5); LYMPHOCYTES % (AUTO) 14.5 % (20.5-51.5); MEAN CORPUSCULAR HEMOGLOBIN 27 pg (27-31); MEAN CORPUSCULAR HGB CONC 32 % (32-36); MEAN CORPUSCULAR VOLUME 86 fL (79.0-98.0); MONOCYTES # (AUTO) 0.6 K/uL (0.0-1.0); MONOCYTES % (AUTO) 4.9 % (1.7-9.3); NEUTROPHILS # (AUTO) 8.8 K/uL (1.8-7.7); NEUTROPHILS % (AUTO) 76.9 % (40.0-70.0); PLATELET COUNT (AUTO) 302 K/uL (130-430); RED BLOOD CELL COUNT(AUTO) 2.68 MIL/uL (4.2-6.2); RED CELL DISTRIBUTION WIDTH 18.4 % (9.0-15.0); WHITE BLOOD COUNT (AUTO) 11.4 K/uL (4.8-10.8)
[2019-11-06 07:31] LABS: ANION GAP 4 (5-15); C-REACTIVE PROTEIN QUANT 3.6 mg/dL (0-0.5); CALCIUM 9.9 mg/dL (8.4-11.0); CHLORIDE 107 mmol/L (98-107); CREATININE 1.85 mg/dL (0.55-1.30); GLUCOSE 167 mg/dL (70-99); PHOSPHORUS 5.5 mg/dL (2.7-4.5); POTASSIUM 4.4 mmol/L (3.5-5.1); SODIUM SERUM 137 mmol/L (136-145); UREA NITROGEN, BLOOD 54 mg/dL (8-21)
[2019-11-06 07:56] LABS: ERYTHROCYTE SEDIMENTATION RATE 51 MM/HR (0-20)
[2019-11-06] MEDS: DOCUSATE SODIUM 100 MG/10 ML UDC GT SCH ×2 (09:00→21:38)
[2019-11-06] MEDS: POLYETHYLENE GLYCOL 3350, 17 GM/ POWD.PACK GT SCH (09:00)
[2019-11-06 09:51] VITALS: BP_SYST 133
[2019-11-06] MEDS: D5/0.45 NS 1,000 ML IV SCH (10:14)
[2019-11-06] MEDS: levETIRAcetam 500 MG TABLET GT SCH ×2 (10:15→21:38)
[2019-11-06] MEDS: MULTIVITAMINS TAB 1 TABLET GT SCH (10:15)
[2019-11-06] MEDS: LANSOPRAZOLE 30 MG CAPSULE.DR GT SCH (10:15)
[2019-11-06] MEDS: MUPIROCIN 2% TOPICAL OINTMENT 22 GM TP SCH ×2 (10:15→21:44)
[2019-11-06] MEDS: BALSAM PERU/CASTOR OIL 60 GM OINT...G. TP SCH (10:15)
[2019-11-06] MEDS: ASCORBIC ACID 500 MG TABLET GT SCH (10:15)
[2019-11-06] MEDS: LINEZOLID 300 ML IV SCH ×2 (10:16→21:42)
[2019-11-06] MEDS: PEG 400/HYPROMELLOSE/GLYCERIN 15 ML DROPS EACH EYE SCH ×4 (10:16→21:43)
[2019-11-06 12:33] VITALS: BP_SYST 110
[2019-11-06 16:35] VITALS: BP_SYST 104
[2019-11-06 18:53] LABS: HEMATOCRIT 26.7 % (36-48); HEMOGLOBIN 7.4 g/dL (12.0-16.0)
[2019-11-06 20:00] VITALS: BP_SYST 126
[2019-11-06] MEDS: SIMVASTATIN 20 MG TABLET GT SCH (21:38)
[2019-11-07] VITALS (8 sets, daily range): BP systolic 112–148
[2019-11-07] MEDS: D5/0.45 NS 1,000 ML IV SCH (06:53)
[2019-11-07] MEDS: metroNIDAZOLE 250 mg/NS 50 ML IV SCH ×2 (06:54→13:34)
[2019-11-07 07:07] LABS: BASOPHILS # (AUTO) 0.1 K/uL (0.0-0.2); BASOPHILS % (AUTO) 0.5 % (0.0-2.0); EOSINOPHILS # (AUTO) 0.4 K/uL (0.0-0.4); HEMATOCRIT 28.3 % (36-48); HEMOGLOBIN 9.1 g/dL (12.0-16.0); LYMPHOCYTES # (AUTO) 1.5 K/uL (1.0-5.5); LYMPHOCYTES % (AUTO) 13.6 % (20.5-51.5); MEAN CORPUSCULAR HEMOGLOBIN 27 pg (27-31); MEAN CORPUSCULAR HGB CONC 32 % (32-36); MEAN CORPUSCULAR VOLUME 84 fL (79.0-98.0); MONOCYTES # (AUTO) 0.4 K/uL (0.0-1.0); MONOCYTES % (AUTO) 3.9 % (1.7-9.3); NEUTROPHILS # (AUTO) 8.7 K/uL (1.8-7.7); PLATELET COUNT (AUTO) 290 K/uL (130-430); RED BLOOD CELL COUNT(AUTO) 3.35 MIL/uL (4.2-6.2); RED CELL DISTRIBUTION WIDTH 18.5 % (9.0-15.0); WHITE BLOOD COUNT (AUTO) 11.1 K/uL (4.8-10.8)
[2019-11-07 07:27] LABS: ANION GAP 6 (5-15); C-REACTIVE PROTEIN QUANT 4.9 mg/dL (0-0.5); CALCIUM 9.6 mg/dL (8.4-11.0); CHLORIDE 107 mmol/L (98-107); CREATININE 1.75 mg/dL (0.55-1.30); GLUCOSE 134 mg/dL (70-99); PHOSPHORUS 5.9 mg/dL (2.7-4.5); POTASSIUM 4.5 mmol/L (3.5-5.1); SODIUM SERUM 137 mmol/L (136-145); UREA NITROGEN, BLOOD 50 mg/dL (8-21)
[2019-11-07 07:48] LABS: ERYTHROCYTE SEDIMENTATION RATE 45 MM/HR (0-20)
[2019-11-07] MEDS: ASCORBIC ACID 500 MG TABLET GT SCH (09:57)
[2019-11-07] MEDS: PEG 400/HYPROMELLOSE/GLYCERIN 15 ML DROPS EACH EYE SCH ×4 (09:57→21:00)
[2019-11-07] MEDS: LANSOPRAZOLE 30 MG CAPSULE.DR GT SCH (09:57)
[2019-11-07] MEDS: DOCUSATE SODIUM 100 MG/10 ML UDC GT SCH ×2 (09:57→21:00)
[2019-11-07] MEDS: MULTIVITAMINS TAB 1 TABLET GT SCH (09:57)
[2019-11-07] MEDS: levETIRAcetam 500 MG TABLET GT SCH ×2 (09:57→21:00)
[2019-11-07] MEDS: MUPIROCIN 2% TOPICAL OINTMENT 22 GM TP SCH ×2 (09:57→21:00)
[2019-11-07] MEDS: LINEZOLID 300 ML IV SCH ×2 (09:57→21:00)
[2019-11-07] MEDS: POLYETHYLENE GLYCOL 3350, 17 GM/ POWD.PACK GT SCH (09:59)
[2019-11-07] MEDS: BALSAM PERU/CASTOR OIL 60 GM OINT...G. TP SCH (10:40)
[2019-11-07] MEDS: HYDROcodone/ACETAMIN 10-325 MG TAB GT PRN (15:40)
[2019-11-07] MEDS: SIMVASTATIN 20 MG TABLET GT SCH (21:00)
[2019-11-08] MEDS: metroNIDAZOLE 250 mg/NS 50 ML IV SCH ×4 (00:30→22:01)
[2019-11-08] MEDS: D5/0.45 NS 1,000 ML IV SCH ×2 (01:45→13:15)
[2019-11-08 02:11] VITALS: BP_SYST 142
[2019-11-08 08:00] VITALS: BP_SYST 147
[2019-11-08 08:23] LABS: BASOPHILS % (AUTO) 0.4 % (0.0-2.0); EOSINOPHILS # (AUTO) 0.3 K/uL (0.0-0.4); HEMATOCRIT 28.6 % (36-48); HEMOGLOBIN 9.4 g/dL (12.0-16.0); LYMPHOCYTES # (AUTO) 1.4 K/uL (1.0-5.5); LYMPHOCYTES % (AUTO) 10.8 % (20.5-51.5); MEAN CORPUSCULAR HEMOGLOBIN 28 pg (27-31); MEAN CORPUSCULAR HGB CONC 33 % (32-36); MEAN CORPUSCULAR VOLUME 85 fL (79.0-98.0); MONOCYTES # (AUTO) 0.5 K/uL (0.0-1.0); MONOCYTES % (AUTO) 3.8 % (1.7-9.3); NEUTROPHILS # (AUTO) 11.1 K/uL (1.8-7.7); PLATELET COUNT (AUTO) 273 K/uL (130-430); RED BLOOD CELL COUNT(AUTO) 3.37 MIL/uL (4.2-6.2); RED CELL DISTRIBUTION WIDTH 18.6 % (9.0-15.0)
[2019-11-08 08:31] LABS: WHITE BLOOD COUNT (AUTO) 13.4 K/uL (4.8-10.8)
[2019-11-08 08:41] LABS: ALANINE AMINOTRANSFERASE 27 U/L (12-78); ALBUMIN 1.4 g/dL (3.4-4.8); ANION GAP 7 (5-15); ASPARTATE AMINOTRANSFERASE 20 U/L (10-37); CALCIUM 9.4 mg/dL (8.4-11.0); CHLORIDE 105 mmol/L (98-107); CREATININE 1.82 mg/dL (0.55-1.30); GLUCOSE 120 mg/dL (70-99); PHOSPHORUS 5.6 mg/dL (2.7-4.5); POTASSIUM 4.7 mmol/L (3.5-5.1); SODIUM SERUM 137 mmol/L (136-145); TOTAL BILIRUBIN 0.2 mg/dL (0.0-1.0); UREA NITROGEN, BLOOD 44 mg/dL (8-21)
[2019-11-08] MEDS: levETIRAcetam 500 MG TABLET GT SCH ×2 (08:50→22:00)
[2019-11-08] MEDS: LANSOPRAZOLE 30 MG CAPSULE.DR GT SCH (08:50)
[2019-11-08] MEDS: MULTIVITAMINS TAB 1 TABLET GT SCH (08:50)
[2019-11-08] MEDS: LINEZOLID 300 ML IV SCH ×2 (08:51→22:01)
[2019-11-08] MEDS: DOCUSATE SODIUM 100 MG/10 ML UDC GT SCH ×2 (08:51→22:00)
[2019-11-08] MEDS: POLYETHYLENE GLYCOL 3350, 17 GM/ POWD.PACK GT SCH (08:51)
[2019-11-08 08:52] LABS: C-REACTIVE PROTEIN QUANT 10.9 mg/dL (0-0.5)
[2019-11-08] MEDS: PEG 400/HYPROMELLOSE/GLYCERIN 15 ML DROPS EACH EYE SCH ×4 (08:52→22:02)
[2019-11-08] MEDS: BALSAM PERU/CASTOR OIL 60 GM OINT...G. TP SCH (08:52)
[2019-11-08] MEDS: MUPIROCIN 2% TOPICAL OINTMENT 22 GM TP SCH ×2 (08:52→22:02)
[2019-11-08] MEDS: ASCORBIC ACID 500 MG TABLET GT SCH (08:53)
[2019-11-08 09:21] LABS: ERYTHROCYTE SEDIMENTATION RATE 50 MM/HR (0-20)
[2019-11-08 12:06] VITALS: BP_SYST 122
[2019-11-08] MEDS: HYDROcodone/ACETAMIN 10-325 MG TAB GT PRN (14:48)
[2019-11-08 16:15] VITALS: BP_SYST 118
[2019-11-08] MEDS: SIMVASTATIN 20 MG TABLET GT SCH (22:00)
[2019-11-08] MEDS: LORazepam 2 MG/ML VIAL IVP PRN (22:59)
[2019-11-09 00:13] VITALS: BP_SYST 116
[2019-11-09] MEDS: HYDROcodone/ACETAMIN 10-325 MG TAB GT PRN ×3 (02:17→21:10)
[2019-11-09] MEDS: metroNIDAZOLE 250 mg/NS 50 ML IV SCH ×3 (05:20→22:48)
[2019-11-09] MEDS: LORazepam 2 MG/ML VIAL IVP PRN (05:43)
[2019-11-09 06:11] LABS: BASOPHILS # (AUTO) 0.1 K/uL (0.0-0.2); BASOPHILS % (AUTO) 0.8 % (0.0-2.0); EOSINOPHILS # (AUTO) 0.5 K/uL (0.0-0.4); EOSINOPHILS % (AUTO) 3.6 % (0.0-4.0); HEMATOCRIT 26.1 % (36-48); HEMOGLOBIN 8.4 g/dL (12.0-16.0); LYMPHOCYTES # (AUTO) 1.4 K/uL (1.0-5.5); LYMPHOCYTES % (AUTO) 9.7 % (20.5-51.5); MEAN CORPUSCULAR HEMOGLOBIN 28 pg (27-31); MEAN CORPUSCULAR HGB CONC 32 % (32-36); MEAN CORPUSCULAR VOLUME 86 fL (79.0-98.0); MONOCYTES # (AUTO) 0.5 K/uL (0.0-1.0); MONOCYTES % (AUTO) 3.2 % (1.7-9.3); NEUTROPHILS # (AUTO) 12.4 K/uL (1.8-7.7); NEUTROPHILS % (AUTO) 82.7 % (40.0-70.0); PLATELET COUNT (AUTO) 297 K/uL (130-430); RED BLOOD CELL COUNT(AUTO) 3.04 MIL/uL (4.2-6.2); RED CELL DISTRIBUTION WIDTH 18.3 % (9.0-15.0)
[2019-11-09 06:25] LABS: ANION GAP 5 (5-15); CALCIUM 8.9 mg/dL (8.4-11.0); CHLORIDE 108 mmol/L (98-107); CREATININE 1.74 mg/dL (0.55-1.30); GLUCOSE 123 mg/dL (70-99); PHOSPHORUS 5.4 mg/dL (2.7-4.5); POTASSIUM 4.5 mmol/L (3.5-5.1); SODIUM SERUM 136 mmol/L (136-145); UREA NITROGEN, BLOOD 41 mg/dL (8-21)
[2019-11-09 07:30] LABS: C-REACTIVE PROTEIN QUANT 13.9 mg/dL (0-0.5)
[2019-11-09 08:16] VITALS: BP_SYST 136
[2019-11-09 09:16] LABS: ERYTHROCYTE SEDIMENTATION RATE 58 MM/HR (0-20)
[2019-11-09] MEDS: POLYETHYLENE GLYCOL 3350, 17 GM/ POWD.PACK GT SCH (09:49)
[2019-11-09] MEDS: levETIRAcetam 500 MG TABLET GT SCH ×2 (09:49→21:10)
[2019-11-09] MEDS: DOCUSATE SODIUM 100 MG/10 ML UDC GT SCH ×2 (09:49→21:11)
[2019-11-09] MEDS: LANSOPRAZOLE 30 MG CAPSULE.DR GT SCH (09:51)
[2019-11-09] MEDS: MULTIVITAMINS TAB 1 TABLET GT SCH (09:51)
[2019-11-09] MEDS: ASCORBIC ACID 500 MG TABLET GT SCH (09:51)
[2019-11-09] MEDS: PEG 400/HYPROMELLOSE/GLYCERIN 15 ML DROPS EACH EYE SCH ×4 (09:52→21:11)
[2019-11-09] MEDS: BALSAM PERU/CASTOR OIL 60 GM OINT...G. TP SCH (09:52)
[2019-11-09] MEDS: MUPIROCIN 2% TOPICAL OINTMENT 22 GM TP SCH ×2 (09:52→21:11)
[2019-11-09] MEDS: LINEZOLID 300 ML IV SCH ×2 (09:55→21:11)
[2019-11-09 12:29] VITALS: BP_SYST 134
[2019-11-09 16:47] VITALS: BP_SYST 130
[2019-11-09] MEDS: D5/0.45 NS 1,000 ML IV SCH (16:49)
[2019-11-09 20:00] VITALS: BP_SYST 129
[2019-11-09] MEDS: SIMVASTATIN 20 MG TABLET GT SCH (21:10)
[2019-11-10 00:32] VITALS: BP_SYST 113
[2019-11-10] MEDS: metroNIDAZOLE 250 mg/NS 50 ML IV SCH ×3 (05:21→21:30)
[2019-11-10] MEDS: D5/0.45 NS 1,000 ML IV SCH (05:47)
[2019-11-10 06:15] LABS: ANION GAP 5 (5-15); CALCIUM 8.3 mg/dL (8.4-11.0); CHLORIDE 104 mmol/L (98-107); CREATININE 1.63 mg/dL (0.55-1.30); GLUCOSE 157 mg/dL (70-99); PHOSPHORUS 5.2 mg/dL (2.7-4.5); POTASSIUM 4.5 mmol/L (3.5-5.1); SODIUM SERUM 132 mmol/L (136-145); UREA NITROGEN, BLOOD 38 mg/dL (8-21)
[2019-11-10 07:04] LABS: BASOPHILS # (AUTO) 0.1 K/uL (0.0-0.2); BASOPHILS % (AUTO) 0.4 % (0.0-2.0); EOSINOPHILS # (AUTO) 0.3 K/uL (0.0-0.4); EOSINOPHILS % (AUTO) 2.6 % (0.0-4.0); HEMATOCRIT 25.7 % (36-48); HEMOGLOBIN 8.2 g/dL (12.0-16.0); LYMPHOCYTES # (AUTO) 1.6 K/uL (1.0-5.5); LYMPHOCYTES % (AUTO) 12.2 % (20.5-51.5); MEAN CORPUSCULAR HEMOGLOBIN 28 pg (27-31); MEAN CORPUSCULAR HGB CONC 32 % (32-36); MEAN CORPUSCULAR VOLUME 86 fL (79.0-98.0); MONOCYTES # (AUTO) 0.4 K/uL (0.0-1.0); MONOCYTES % (AUTO) 3.2 % (1.7-9.3); NEUTROPHILS # (AUTO) 10.7 K/uL (1.8-7.7); NEUTROPHILS % (AUTO) 81.6 % (40.0-70.0); PLATELET COUNT (AUTO) 263 K/uL (130-430); RED BLOOD CELL COUNT(AUTO) 2.99 MIL/uL (4.2-6.2); RED CELL DISTRIBUTION WIDTH 19.5 % (9.0-15.0); WHITE BLOOD COUNT (AUTO) 13.1 K/uL (4.8-10.8)
[2019-11-10 07:38] LABS: C-REACTIVE PROTEIN QUANT 16.3 mg/dL (0-0.5)
[2019-11-10] MEDS: ASCORBIC ACID 500 MG TABLET GT SCH (07:58)
[2019-11-10] MEDS: DOCUSATE SODIUM 100 MG/10 ML UDC GT SCH ×2 (07:58→21:29)
[2019-11-10] MEDS: levETIRAcetam 500 MG TABLET GT SCH ×2 (07:58→21:29)
[2019-11-10] MEDS: LINEZOLID 300 ML IV SCH ×2 (07:58→22:30)
[2019-11-10] MEDS: MULTIVITAMINS TAB 1 TABLET GT SCH (07:58)
[2019-11-10] MEDS: LANSOPRAZOLE 30 MG CAPSULE.DR GT SCH (07:58)
[2019-11-10] MEDS: PEG 400/HYPROMELLOSE/GLYCERIN 15 ML DROPS EACH EYE SCH ×4 (07:59→21:32)
[2019-11-10] MEDS: MUPIROCIN 2% TOPICAL OINTMENT 22 GM TP SCH ×2 (07:59→21:34)
[2019-11-10] MEDS: BALSAM PERU/CASTOR OIL 60 GM OINT...G. TP SCH (07:59)
[2019-11-10 08:10] VITALS: BP_SYST 149
[2019-11-10 08:58] LABS: ERYTHROCYTE SEDIMENTATION RATE 69 MM/HR (0-20)
[2019-11-10] MEDS ORDERED: FLA250 PO (11:40)
[2019-11-10] MEDS ORDERED: BALS60OI TP (11:40)
[2019-11-10] MEDS ORDERED: LINE600T6 PO (11:40)
[2019-11-10 12:41] VITALS: BP_SYST 114
[2019-11-10 17:16] VITALS: BP_SYST 106
[2019-11-10 21:26] VITALS: BP_SYST 152
[2019-11-10] MEDS: SIMVASTATIN 20 MG TABLET GT SCH (21:29)
[2019-11-10] MEDS: HYDROcodone/ACETAMIN 5-325 MG TAB (NORCO/ VICODIN) PO PRN (23:31)
[2019-11-11 00:02] VITALS: BP_SYST 118
[2019-11-11] MEDS: metroNIDAZOLE 250 mg/NS 50 ML IV SCH ×3 (05:13→21:45)
[2019-11-11] MEDS: D5/0.45 NS 1,000 ML IV SCH (05:14)
[2019-11-11 06:36] LABS: ALANINE AMINOTRANSFERASE 19 U/L (12-78); ALBUMIN 1.2 g/dL (3.4-4.8); ANION GAP 6 (5-15); ASPARTATE AMINOTRANSFERASE 19 U/L (10-37); CALCIUM 8.2 mg/dL (8.4-11.0); CHLORIDE 102 mmol/L (98-107); CREATININE 1.55 mg/dL (0.55-1.30); GLUCOSE 155 mg/dL (70-99); POTASSIUM 4.6 mmol/L (3.5-5.1); SODIUM SERUM 130 mmol/L (136-145); TOTAL BILIRUBIN 0.2 mg/dL (0.0-1.0); UREA NITROGEN, BLOOD 36 mg/dL (8-21)
[2019-11-11 06:52] LABS: BASOPHILS % (AUTO) 0.3 % (0.0-2.0); EOSINOPHILS # (AUTO) 0.1 K/uL (0.0-0.4); HEMATOCRIT 25.1 % (36-48); LYMPHOCYTES # (AUTO) 1.5 K/uL (1.0-5.5); LYMPHOCYTES % (AUTO) 12.2 % (20.5-51.5); MEAN CORPUSCULAR HEMOGLOBIN 27 pg (27-31); MEAN CORPUSCULAR HGB CONC 32 % (32-36); MEAN CORPUSCULAR VOLUME 85 fL (79.0-98.0); MONOCYTES # (AUTO) 0.5 K/uL (0.0-1.0); MONOCYTES % (AUTO) 4.3 % (1.7-9.3); NEUTROPHILS % (AUTO) 82.2 % (40.0-70.0); PLATELET COUNT (AUTO) 242 K/uL (130-430); RED BLOOD CELL COUNT(AUTO) 2.95 MIL/uL (4.2-6.2); RED CELL DISTRIBUTION WIDTH 19.2 % (9.0-15.0); WHITE BLOOD COUNT (AUTO) 12.1 K/uL (4.8-10.8)
[2019-11-11 08:00] VITALS: BP_SYST 145
[2019-11-11 08:15] LABS: ERYTHROCYTE SEDIMENTATION RATE 89 MM/HR (0-20)
[2019-11-11 08:29] LABS: C-REACTIVE PROTEIN QUANT 15.8 mg/dL (0-0.5)
[2019-11-11] MEDS: LINEZOLID 300 ML IV SCH ×2 (09:28→20:32)
[2019-11-11] MEDS: DOCUSATE SODIUM 100 MG/10 ML UDC GT SCH ×2 (09:29→20:32)
[2019-11-11] MEDS: MULTIVITAMINS TAB 1 TABLET GT SCH (09:29)
[2019-11-11] MEDS: ASCORBIC ACID 500 MG TABLET GT SCH (09:29)
[2019-11-11] MEDS: LANSOPRAZOLE 30 MG CAPSULE.DR GT SCH (09:29)
[2019-11-11] MEDS: levETIRAcetam 500 MG TABLET GT SCH ×2 (09:29→20:32)
[2019-11-11] MEDS: BALSAM PERU/CASTOR OIL 60 GM OINT...G. TP SCH (09:30)
[2019-11-11] MEDS: MUPIROCIN 2% TOPICAL OINTMENT 22 GM TP SCH ×2 (09:30→20:33)
[2019-11-11] MEDS: PEG 400/HYPROMELLOSE/GLYCERIN 15 ML DROPS EACH EYE SCH ×4 (09:44→20:34)
[2019-11-11 12:16] VITALS: BP_SYST 125
[2019-11-11] MEDS: HYDROcodone/ACETAMIN 5-325 MG TAB (NORCO/ VICODIN) PO PRN (16:09)
[2019-11-11 16:12] VITALS: BP_SYST 137
[2019-11-11] MEDS ORDERED: D5NS 500 ML IV ONE (16:15)
[2019-11-11 20:00] VITALS: BP_SYST 132
[2019-11-11] MEDS: SIMVASTATIN 20 MG TABLET GT SCH (20:32)
[2019-11-12 00:48] VITALS: BP_SYST 105
[2019-11-12] MEDS: metroNIDAZOLE 250 mg/NS 50 ML IV SCH ×2 (05:42→14:41)
[2019-11-12] MEDS: HYDROcodone/ACETAMIN 5-325 MG TAB (NORCO/ VICODIN) PO PRN (06:28)
[2019-11-12 06:53] LABS: BASOPHILS % (AUTO) 0.3 % (0.0-2.0); EOSINOPHILS # (AUTO) 0.2 K/uL (0.0-0.4); EOSINOPHILS % (AUTO) 1.9 % (0.0-4.0); HEMATOCRIT 26.1 % (36-48); HEMOGLOBIN 8.5 g/dL (12.0-16.0); LYMPHOCYTES # (AUTO) 1.3 K/uL (1.0-5.5); LYMPHOCYTES % (AUTO) 10.9 % (20.5-51.5); MEAN CORPUSCULAR HEMOGLOBIN 28 pg (27-31); MEAN CORPUSCULAR HGB CONC 32 % (32-36); MEAN CORPUSCULAR VOLUME 85 fL (79.0-98.0); MONOCYTES # (AUTO) 0.6 K/uL (0.0-1.0); MONOCYTES % (AUTO) 5.1 % (1.7-9.3); NEUTROPHILS # (AUTO) 9.4 K/uL (1.8-7.7); NEUTROPHILS % (AUTO) 81.8 % (40.0-70.0); PLATELET COUNT (AUTO) 193 K/uL (130-430); RED BLOOD CELL COUNT(AUTO) 3.07 MIL/uL (4.2-6.2); RED CELL DISTRIBUTION WIDTH 18.9 % (9.0-15.0); WHITE BLOOD COUNT (AUTO) 11.5 K/uL (4.8-10.8)
[2019-11-12 07:09] LABS: ANION GAP 8 (5-15); CHLORIDE 102 mmol/L (98-107); CREATININE 1.29 mg/dL (0.55-1.30); GLUCOSE 115 mg/dL (70-99); PHOSPHORUS 4.4 mg/dL (2.7-4.5); POTASSIUM 4.6 mmol/L (3.5-5.1); SODIUM SERUM 132 mmol/L (136-145); UREA NITROGEN, BLOOD 31 mg/dL (8-21)
[2019-11-12 07:26] LABS: C-REACTIVE PROTEIN QUANT 15.5 mg/dL (0-0.5)
[2019-11-12 07:41] LABS: ERYTHROCYTE SEDIMENTATION RATE 94 MM/HR (0-20)
[2019-11-12] MEDS: BALSAM PERU/CASTOR OIL 60 GM OINT...G. TP SCH (09:41)
[2019-11-12] MEDS: LINEZOLID 300 ML IV SCH (09:41)
[2019-11-12] MEDS: LANSOPRAZOLE 30 MG CAPSULE.DR GT SCH (09:41)
[2019-11-12] MEDS: PEG 400/HYPROMELLOSE/GLYCERIN 15 ML DROPS EACH EYE SCH ×2 (09:41→13:56)
[2019-11-12] MEDS: ASCORBIC ACID 500 MG TABLET GT SCH (09:41)
[2019-11-12] MEDS: DOCUSATE SODIUM 100 MG/10 ML UDC GT SCH (09:41)
[2019-11-12] MEDS: MULTIVITAMINS TAB 1 TABLET GT SCH (09:41)
[2019-11-12] MEDS: levETIRAcetam 500 MG TABLET GT SCH (09:41)
[2019-11-12] MEDS: MUPIROCIN 2% TOPICAL OINTMENT 22 GM TP SCH (09:41)
[2019-11-12 11:38] VITALS: BP_SYST 120
[2019-11-12 14:49] VITALS: BP_SYST 131
[2019-11-12 15:43] VITALS: BP_SYST 153
== END 2019-11-12 17:30 | DRG 853 ==
LOC: SED 04:48 → EEVIPCON 07:56 → STU 07:56 → SMU 11-05 00:26
PROVIDERS: ADMIT Preventive Medicine Preventive Medicine/Occupational Environmental Medicine; ATTEND Preventive Medicine Preventive Medicine/Occupational Environmental Medicine
PROC: 0QB10ZZ Excision of Sacrum, Open Approach (ICD-10-PCS; principal; 2019-11-04 11:58)
PROC: 30233N1 Transfusion of Nonautologous Red Blood Cells into Peripheral Vein, Percutaneous Approach (ICD-10-PCS; 2019-11-07)
DX: A41.81 Sepsis due to Enterococcus (principal); L89.154 Pressure ulcer of sacral region, stage 4; E43 Unspecified severe protein-calorie malnutrition; J69.0 Pneumonitis due to inhalation of food and vomit; J96.21 Acute and chronic respiratory failure with hypoxia; N17.0 Acute kidney failure with tubular necrosis; R65.21 Severe sepsis with septic shock; R53.2 Functional quadriplegia; N39.0 Urinary tract infection, site not specified; E87.2 Acidosis; Z16.21 Resistance to vancomycin; E87.0 Hyperosmolality and hypernatremia; E87.1 Hypo-osmolality and hyponatremia; I13.0 Hypertensive heart and chronic kidney disease with heart failure and stage 1 through stage 4 chronic kidney disease, or unspecified chronic kidney disease; I42.0 Dilated cardiomyopathy; I48.20 Chronic atrial fibrillation, unspecified; D63.8 Anemia in other chronic diseases classified elsewhere; E11.22 Type 2 diabetes mellitus with diabetic chronic kidney disease; E11.65 Type 2 diabetes mellitus with hyperglycemia; E78.5 Hyperlipidemia, unspecified; E83.39 Other disorders of phosphorus metabolism; E83.42 Hypomagnesemia; E83.51 Hypocalcemia; E83.52 Hypercalcemia; E86.0 Dehydration; F03.90 Unspecified dementia, unspecified severity, without behavioral disturbance, psychotic disturbance, mood disturbance, and anxiety; G40.909 Epilepsy, unspecified, not intractable, without status epilepticus; I50.9 Heart failure, unspecified; N18.9 Chronic kidney disease, unspecified; R13.10 Dysphagia, unspecified; R62.7 Adult failure to thrive; Z03.818 Encounter for observation for suspected exposure to other biological agents ruled out; Z22.322 Carrier or suspected carrier of Methicillin resistant Staphylococcus aureus; Z74.01 Bed confinement status; Z85.3 Personal history of malignant neoplasm of breast; Z86.73 Personal history of transient ischemic attack (TIA), and cerebral infarction without residual deficits; Z93.1 Gastrostomy status; Z95.0 Presence of cardiac pacemaker; Z79.899 Other long term (current) drug therapy; Z68.30 Body mass index [BMI] 30.0-30.9, adult
CPT/HCPCS: 36415; 36600; 71045; 80048; 80053; 81000-TC; 82803-TC; 82962; 83540-TC; 83550-TC; 83605; 83735-TC; 83880; 84100-TC; 84132-TC; 84484; 85007; 85018-TC; 85025; 85027; 85610-TC; 85651-TC; 86140; 86710; 86886; 86900; 86901; 86920; 87040-TC; 87081; 87086; 87186-TC; 88304; 93005; 96365; 96367; 96375; 97110-GP; 97530-GP; 99285; C1751; J1940; J2020; J2060; J2543; J3370; J3490; J7030; J7040; J7042; J7060; P9021; U0003-CS

== ENCOUNTER 2019-12-25 09:46 | Inpatient (IN) | payer OTHER, SELFPAY ==
[~2019-12-25] VITALS: Ht 170.2 cm; Wt 75.4 kg
[2019-12-25 09:46] VITALS: BP_SYST 90
[~2019-12-25 09:46] MED LIST changes: -ACET-2634 PO; +ALBU8.5H8 INH; +BALS60OI TP; +CAT.1 GT; +FLA250 PO; +FURO-149 GT; +HYDR-3110 GT; +LANS15CA19 GT; +LINE600T6 PO; +POLY17PO4 GT
--- NOTE | 2019-12-25 09:46 | NUR ---
Placed in room 6. Placed on cardiac rehabilitation specialist, blood pressure machine and pulse oximeter. To gown for exam. Side rails up. Report given to MATHIEU Diaz.
--- NOTE | 2019-12-25 09:55 | NUR ---
PT AWAKE BUT NON VERBAL. SKIN WARM WITH MULTIPLE PRESSURE WOUNDS NOTED. PT DYSPNIC WITH MOIST CRACKLES THROUGHOUT.
--- NOTE | 2019-12-25 09:55 | NUR ---
ER Dr. CLARKE at bedside examining patient.
[2019-12-25] MEDS ORDERED: NACL 0.9% 1,000 ML IV ONE (10:06)
[2019-12-25] MEDS ORDERED: ZINC220T4 GT (10:07)
--- NOTE | 2019-12-25 10:07 | NUR ---
Medication reconciliation completed with information provided by Eliot Teague. Any prior medication reconciliation on file was reviewed and corrected.
--- NOTE | 2019-12-25 10:20 | NUR ---
PT ARRIVED WITH IV INPLACE TO LEFT ARM. IVF 0.9 NS INFUSING NOW.
--- NOTE | 2019-12-25 10:59 | NUR ---
pt suctioned with good effect. saturation is 100% on 100% non rebreather mask.
[2019-12-25] MEDS ORDERED: VANCOMYCIN HCL 1,000 MG in NS 250 ML IV ONE (11:15)
[2019-12-25] MEDS ORDERED: MEROPENEM 1 GM in NS 100 ML IV ONE (11:15)
[2019-12-25 11:21] LABS: ANION GAP 6 (5-15); CHLORIDE 116 mmol/L (98-107); CREATININE 3.16 mg/dL (0.55-1.30); GLUCOSE 112 mg/dL (70-99); POTASSIUM 4.8 mmol/L (3.5-5.1); SODIUM SERUM 154 mmol/L (136-145)
[2019-12-25 11:27] LABS: HEMATOCRIT 30.6 % (36-48); HEMOGLOBIN 9.2 g/dL (12.0-16.0); MEAN CORPUSCULAR HEMOGLOBIN 27 pg (27-31); MEAN CORPUSCULAR HGB CONC 30 % (32-36); MEAN CORPUSCULAR VOLUME 90 fL (79.0-98.0); PLATELET COUNT (AUTO) 411 K/uL (130-430); RED BLOOD CELL COUNT(AUTO) 3.39 MIL/uL (4.2-6.2); RED CELL DISTRIBUTION WIDTH 21.1 % (9.0-15.0); WHITE BLOOD COUNT (AUTO) 22.2 K/uL (4.8-10.8)
[2019-12-25 11:31] LABS: ALANINE AMINOTRANSFERASE 25 U/L (12-78); ALBUMIN 1.8 g/dL (3.4-4.8); ASPARTATE AMINOTRANSFERASE 33 U/L (10-37); TOTAL BILIRUBIN 0.6 mg/dL (0.0-1.0)
[2019-12-25 11:34] LABS: CALCIUM 12.6 mg/dL (8.4-11.0); UREA NITROGEN, BLOOD 132 mg/dL (8-21)
[2019-12-25 11:43] LABS: ATYPICAL LYMPHOCYTES % 0 % (0-0); BAND % (MANUAL) 5 % (0-6); BASOPHILS % (MANUAL) 0 % (0-2); EOSINOPHILS % (MANUAL) 3 % (0-7); LYMPHOCYTES % (MANUAL) 14 % (20-46); MONOCYTES % (MANUAL) 8 % (0-11)
--- NOTE | 2019-12-25 11:44 | NUR ---
pt sitting up in gurney, eyes open and responding with moans to verbal stimuli.
[2019-12-25 12:18] LABS: BILIRUBIN,URINE NEGATIVE (NEGATIVE); BLOOD, URINE 2+ (NEGATIVE); CLARITY/URINE SL CLOUDY (CLEAR); COLOR,URINE YELLOW (YELLOW); GLUCOSE,URINE NEGATIVE (NEGATIVE); KETONES,URINE NEGATIVE (NEGATIVE); LEUKOCYTE ESTERASE ,URINE 2+ (NEGATIVE); NITRITE, URINE NEGATIVE (NEGATIVE); PH,URINE 5.5 (5.0-8.0); PROTEIN URINE 2+ (NEGATIVE); UROBILINOGEN,URINE 0.2 (0.2-1.0)
[2019-12-25] MEDS ORDERED: VANCOMYCIN HCL 1000 MG/VIAL IV ONE (12:23)
[2019-12-25 12:28] LABS: BACTERIA,URINE MODERATE /HPF (None Seen); FINE GRANULAR CASTS,URINE 0-10 /LPF (None Seen); MUCUS,URINE 1+ /LPF (None Seen); RBC,URINE 20-50 /HPF (0-3); WBC,URINE 20-50 /HPF (0-3)
[2019-12-25] MEDS ORDERED: cefTRIAXone 1 GM IVPB PREMIX 50 ML IV ONE (13:30)
[2019-12-25] MEDS ORDERED: ONDANSETRON HCL 4 MG/2 ML VIAL IVP PRN (14:15)
[2019-12-25] MEDS ORDERED: KCL 20 mEq in NS 1000 mL 1,000 ML IV SCH (14:15)
--- NOTE | 2019-12-25 16:12 | NUR ---
pt in gurney awake but minimal response other than moaning to tactile stimuli. Pt continues to be monitored.
--- NOTE | 2019-12-25 16:35 | NUR ---
SPOKE TO DR. BENSON REGARDING IVF WITH KCL. ORDER DC'D AND CHANGED TO 0.9 NS WITHOUT POTASSIUM.
[2019-12-25] MEDS ORDERED: NACL 0.9% 1,000 ML IV SCH (16:45)
[2019-12-25 18:01] VITALS: BP_SYST 100
[2019-12-25] MEDS ORDERED: levETIRAcetam 500 MG TABLET GT SCH (18:45)
[2019-12-25] MEDS ORDERED: cloNIDine HCL 0.1 MG TABLET GT PRN (18:45)
[2019-12-25] MEDS ORDERED: ALBUTEROL SULFATE 0.083% 2.5 MG/3 ML VIAL.NEB INH PRN (19:00)
--- NOTE | 2019-12-25 19:20 | NUR ---
Report recieved from MATHIEU Diaz. All care assumed.
--- NOTE | 2019-12-25 20:59 | NUR ---
T/O GIVEN BY DR BENSON TO CHANGE IVF NORMAL SALINE TO D5W 125CC/HR AND ADMIT PT TO TELEMETRY.PRIMARY NURSE JUJU WAS NOTIFIED.
[2019-12-25] MEDS: D5W 1,000 ML IV SCH ×2 (21:00→21:40)
--- NOTE | 2019-12-25 21:33 | NUR ---
Pt resting in ED Bed at this time. Pt resting comfortably, No signs of acute distress. Small runs of tachycardia approx 110bpm, intermittent
[2019-12-25] MEDS: ASCORBIC ACID 500 MG TABLET GT SCH (21:38)
[2019-12-25] MEDS: LevETIRAcetam 500 MG/5 ML UDC ORAL LIQUID GT SCH (21:39)
[2019-12-25] MEDS: SIMVASTATIN 20 MG TABLET GT SCH (21:39)
--- NOTE | 2019-12-25 22:30 | NUR ---
Pt has had intermittent runs of tachycardia, up to the 166bpm range. Pt does not appear to be in distress. Pt adjusted with pillows.
--- NOTE | 2019-12-25 23:00 | NUR ---
Stuart bear in [facility] - 12/26/19 at 0008 by [id number] Report Given to MATHIEU Peng. All care endorsed.
--- NOTE | 2019-12-25 23:00 | NUR ---
Dr. Angulo Returned call from page. Requested stat cardiology consult with Dr. Tom.Order Entered and Paged Per LIAM Nelson.
--- NOTE | 2019-12-25 23:00 | NUR ---
Report Given to MATHIEU Cardenas. All care endorsed.
--- NOTE | 2019-12-25 23:05 | NUR ---
received report from MATHIEU Culver for continuation of care.
--- NOTE | 2019-12-25 23:34 | NUR ---
Spoke with , Covering for . Dr Anne informed of Tachycardia runs sustained at approx 170bpm. Dr. Anne states no new orders.
--- NOTE | 2019-12-26 00:52 | NUR ---
pt vital signs stable. no signs of acute distress. iv fluids infusing at prescribed rate. no signs of infiltration.
--- NOTE | 2019-12-26 01:25 | NUR ---
covid swab collected and sent to lab. vital signs stable.
--- NOTE | 2019-12-26 02:52 | NUR ---
pt vital signs stable. no signs of acute distress. iv fluids infusing at prescribed rate. no signs of infiltration.
--- NOTE | 2019-12-26 03:52 | NUR ---
pt vital signs stable. no signs of acute distress. iv fluids infusing at prescribed rate. no signs of infiltration.
--- NOTE | 2019-12-26 04:07 | NUR ---
pt vital signs stable. no signs of acute distress. iv fluids infusing at prescribed rate. no signs of infiltration.
--- NOTE | 2019-12-26 05:05 | NUR ---
[id number] IV maintenance fluids ordered for 0500 not administered yet. [id number] IV infusion started at 2140 still infusing. will administer fluids once previous bag is complete.
[2019-12-26] MEDS: MEROPENEM 500 MG in NS 50 ML IV SCH ×4 (06:07→23:03)
--- NOTE | 2019-12-26 06:08 | NUR ---
IV on left forearm flushed with 10 cc of normal saline. no signs of infiltration. IV Merrem infusing at prescribed rate. pt tolerating well.
--- NOTE | 2019-12-26 07:10 | NUR ---
pt transferred onto a hospital bed.
--- NOTE | 2019-12-26 07:30 | NUR ---
Report from Theresa MURDOCK
--- NOTE | 2019-12-26 07:30 | NUR ---
report given to MATHIEU Ralph for continuation of care.
--- NOTE | 2019-12-26 07:50 | NUR ---
Dr. Tom at BS.
[2019-12-26] MEDS ORDERED: NACL 0.9% 1,000 ML IV ONE (08:00)
--- NOTE | 2019-12-26 08:00 | NUR ---
Patient given gerardo care/armstrong care. Diaper removed, dry stool on gerardo area and armstrong, repositioned left/supine.
[2019-12-26 08:04] LABS: BASOPHILS # (AUTO) 0.2 K/uL (0.0-0.2); BASOPHILS % (AUTO) 0.9 % (0.0-2.0); EOSINOPHILS # (AUTO) 1.1 K/uL (0.0-0.4); EOSINOPHILS % (AUTO) 6.7 % (0.0-4.0); HEMATOCRIT 30.4 % (36-48); HEMOGLOBIN 9.2 g/dL (12.0-16.0); LYMPHOCYTES # (AUTO) 2.4 K/uL (1.0-5.5); MEAN CORPUSCULAR HEMOGLOBIN 27 pg (27-31); MEAN CORPUSCULAR HGB CONC 30 % (32-36); MEAN CORPUSCULAR VOLUME 91 fL (79.0-98.0); MONOCYTES # (AUTO) 1.1 K/uL (0.0-1.0); MONOCYTES % (AUTO) 6.6 % (1.7-9.3); NEUTROPHILS # (AUTO) 12.1 K/uL (1.8-7.7); NEUTROPHILS % (AUTO) 71.8 % (40.0-70.0); PLATELET COUNT (AUTO) 322 K/uL (130-430); RED BLOOD CELL COUNT(AUTO) 3.35 MIL/uL (4.2-6.2); RED CELL DISTRIBUTION WIDTH 20.6 % (9.0-15.0); WHITE BLOOD COUNT (AUTO) 16.9 K/uL (4.8-10.8)
[2019-12-26 08:08] LABS: ANION GAP 9 (5-15); CALCIUM 11.3 mg/dL (8.4-11.0); CHLORIDE 110 mmol/L (98-107); CREATININE 2.95 mg/dL (0.55-1.30); GLUCOSE 179 mg/dL (70-99); POTASSIUM 4.4 mmol/L (3.5-5.1); SODIUM SERUM 146 mmol/L (136-145)
[2019-12-26 08:26] LABS: UREA NITROGEN, BLOOD 123 mg/dL (8-21)
[2019-12-26] MEDS: D5W 1,000 ML IV SCH ×4 (08:59→22:00)
[2019-12-26] MEDS: ASCORBIC ACID 500 MG TABLET GT SCH (09:53)
[2019-12-26] MEDS: MULTIVITAMINS TAB 1 TABLET GT SCH (09:53)
[2019-12-26] MEDS: LevETIRAcetam 500 MG/5 ML UDC ORAL LIQUID GT SCH ×2 (09:54→22:00)
--- NOTE | 2019-12-26 12:20 | NUR ---
Patient repositioned supine, pericare completed.
--- NOTE | 2019-12-26 17:00 | NUR ---
Patient repositioned right/supine, pericare and linen nicholase completed. Sacral wound dressing changed, cleansed with NS, new dry dressing applied
--- NOTE | 2019-12-26 19:20 | NUR ---
REPORT TO KAVIN MURDOCK
--- NOTE | 2019-12-26 19:20 | NUR ---
report received from MATHIEU Ralph for continuation of care.
--- NOTE | 2019-12-26 19:30 | NUR ---
PT RESTING IN BED, REPOSITIONED. VITAL SIGNS STABLE. PT NONVERBAL, MOANS WHEN BEING MOVED.
--- NOTE | 2019-12-26 20:16 | NUR ---
APatient will be admitted to [facility]. Admitted to TELE unit. Will go to room 133B. Belongings list completed. Complete and up to date summary report printed. SBAR report to be given at bedside with opportunity for questions.
--- NOTE | 2019-12-26 20:17 | NUR ---
Transfer to TELE via ACLS protocol. Licensed nurse present. IV present no signs or symptoms of infiltration.
--- NOTE | 2019-12-26 20:40 | NUR ---
ADMISSION NOTES; pt. admitted from ER to room 133 B, reposrt given by nurse Danish. nurse Nighat helping me on the admission. DX Sepsis and hypotension on the low 90's. pt. awake, able to answer what her name, moans and groans. oriented to pace but not verbally responsive. placed on assurance analyst with pacemaker. O2 @ 7 liters via face mask, HOB elevated. 2 iv sites on both arms. foey cath to m OSD. bed in low position , on fall risk. call light at bedside.
[2019-12-26 21:00] VITALS: BP_SYST 97
--- NOTE | 2019-12-26 21:00 | NUR ---
NOTES: pictures taken on sacral with pressure ulcer, cleanse and foam dressing applied. skin tear on rt. arm, both heels reddened, left hip with scar both arms swollen and multiple bruising. both legs with discoloration. repositioned. g tube clamped, to restart feeding.
[2019-12-26] MEDS: SIMVASTATIN 20 MG TABLET GT SCH (22:00)
--- NOTE | 2019-12-26 22:30 | NUR ---
NOTES: pt. calmer but remains awake, IV restarted via rt. antecubital with D5 W @ 150 cc/hr. G tube feeding restarted with Glucerna 1.5 @ 40 cc/hr. flushed g tube and remains patent. g tube site clean. cardiac pattern on sinus rhythm , pt. with pacemaker.
--- NOTE | 2019-12-27 00:01 | NUR ---
NOTES: pt. sleeping when checked. no distress. repositioned. IVF continuous. observed contact isolation for R/O Covid.
[2019-12-27 00:30] VITALS: BP_SYST 97
--- NOTE | 2019-12-27 02:34 | NUR ---
NOTES: condition observed, continue to monitor.
[2019-12-27] MEDS: D5W 1,000 ML IV SCH ×4 (04:30→21:00)
[2019-12-27] MEDS: MEROPENEM 500 MG in NS 50 ML IV SCH ×3 (05:02→21:18)
--- NOTE | 2019-12-27 05:07 | NUR ---
NOTES: pt. checked, remain sleeping. no distress. g tube feed continuous, no residual. fall risk and seizure precautions.
[2019-12-27 05:59] VITALS: BP_SYST 121
--- NOTE | 2019-12-27 06:02 | NUR ---
NOTES: repositioned, turn to sides. wound consult this am. mattress not compatible with machine for air mattress. IVF infusing well.
--- NOTE | 2019-12-27 06:39 | NUR ---
CLOSING NOTES; pt. went back to sleep. kept O2 @ 7 liters via face mask. IVF patent and continuous. G tube kept @ 40 cc/hr. for further care , observation and assistance. on fall risk and seizure precautions. will endorse to day shift.
--- NOTE | 2019-12-27 07:07 | NUR ---
Nutrition Update Anup scale 12 noted. Pt admitted for Sepsis. Diet: Tube Feeding. BMI: 26.6 kg/m2 RD to follow per nutrition care standards.
[2019-12-27 08:00] VITALS: BP_SYST 123
--- NOTE | 2019-12-27 08:00 | NUR ---
initial notes rec patient awake, confused and talks to herself. ivf infusing well on the r ac. no infiltration noted. resp easy and unlabored. no osb noted with a mask at 7 liters via nasal cannula. no osb noted. bed to the lowest position and side rails up and locked. call light within reached.
[2019-12-27 08:05] LABS: BASOPHILS # (AUTO) 0.1 K/uL (0.0-0.2); BASOPHILS % (AUTO) 0.6 % (0.0-2.0); EOSINOPHILS # (AUTO) 1.1 K/uL (0.0-0.4); EOSINOPHILS % (AUTO) 7.7 % (0.0-4.0); HEMATOCRIT 28.3 % (36-48); HEMOGLOBIN 8.7 g/dL (12.0-16.0); LYMPHOCYTES # (AUTO) 1.6 K/uL (1.0-5.5); LYMPHOCYTES % (AUTO) 11.1 % (20.5-51.5); MEAN CORPUSCULAR HEMOGLOBIN 27 pg (27-31); MEAN CORPUSCULAR HGB CONC 31 % (32-36); MONOCYTES # (AUTO) 0.8 K/uL (0.0-1.0); NEUTROPHILS # (AUTO) 10.4 K/uL (1.8-7.7); NEUTROPHILS % (AUTO) 74.6 % (40.0-70.0); PLATELET COUNT (AUTO) 381 K/uL (130-430); RED BLOOD CELL COUNT(AUTO) 3.19 MIL/uL (4.2-6.2); RED CELL DISTRIBUTION WIDTH 20.2 % (9.0-15.0)
[2019-12-27 08:31] LABS: ALANINE AMINOTRANSFERASE 18 U/L (12-78); ALBUMIN 1.5 g/dL (3.4-4.8); ANION GAP 8 (5-15); ASPARTATE AMINOTRANSFERASE 24 U/L (10-37); CALCIUM 10.2 mg/dL (8.4-11.0); CHLORIDE 104 mmol/L (98-107); CREATININE 2.39 mg/dL (0.55-1.30); GLUCOSE 138 mg/dL (70-99); POTASSIUM 3.9 mmol/L (3.5-5.1); SODIUM SERUM 138 mmol/L (136-145); THYROID STIMULATING HORMONE 19.84 uIu/mL (0.34-4.82); TOTAL BILIRUBIN 0.3 mg/dL (0.0-1.0); UREA NITROGEN, BLOOD 98 mg/dL (8-21)
[2019-12-27 08:46] LABS: MEAN CORPUSCULAR VOLUME 89 fL (79.0-98.0)
[2019-12-27] MEDS ORDERED: NS 500 ML IV ONE (09:00)
--- NOTE | 2019-12-27 09:32 | NUR ---
Dietitian Recommendations *Recommend provide TF Glucerna at goal rate of 50ml/hr via GT to provide 1800 kcal, 99g protein, and 911 ml free H2O. Water flushes per MD. --Initiate TF at 20 ml/hr and advance by 10ml Q6H until goal rate is reached. Please see Nutrition Assessment for details. YVAN,RD
[2019-12-27] MEDS: MULTIVITAMINS TAB 1 TABLET GT SCH (09:48)
[2019-12-27] MEDS: ASCORBIC ACID 500 MG TABLET GT SCH (09:48)
[2019-12-27] MEDS: LevETIRAcetam 500 MG/5 ML UDC ORAL LIQUID GT SCH ×2 (10:00→20:45)
[2019-12-27] MEDS ORDERED: LEVOTHYROXINE SODIUM 0.025 MG TABLET PO ONE (10:00)
--- NOTE | 2019-12-27 10:00 | NUR ---
rounds seen by dr krishna and with orders. no sob noted
[2019-12-27 12:00] VITALS: BP_SYST 140
--- NOTE | 2019-12-27 14:00 | NUR ---
rounds turned repositioned for comfort. sleeping at intervals . suctioned obtaining marin amount of thick yellow phlegm.
[2019-12-27 16:00] VITALS: BP_SYST 155
--- NOTE | 2019-12-27 18:30 | NUR ---
closing notes dr mcfadden came and aware pt negative for the covid test. had a large amount of loose stool and was cleaned.pt kept dry and lcean. turned repositioned for comfort. no sob noted. bed to the lowest position and side rails up and locked. call light within reached .
--- NOTE | 2019-12-27 19:30 | NUR ---
CHANGE OF SHIFT; pt. resting, calm when received. no acute distress. Dr Ramirez was called for consult and order to repeat Covid test. pt. negative on the first Covid test. pt. unable to use call light on fall risk and seizure precautions. bed alarm on , bed in low position.
--- NOTE | 2019-12-27 19:33 | NUR ---
FOLLOW UP CONSULT CALLED DOCTOR ESTELITA RYAN IS PSYCHIATRIC LPN PAGED
--- NOTE | 2019-12-27 20:00 | NUR ---
NOTES: g tube disconnected and leaked all over the bed. VS checked. pt. confused, able to talk but moans on stimulation. paced with underlying sinus rhythm. IVF infusing via rt. antecubital. both arms swollen with multiple skin ecchymosis. off O2, O2 sat 96% on room air, kept it off for now, will monitor. armstrong cath to osd. pt. negative for Covid test.
[2019-12-27 20:30] VITALS: BP_SYST 134
[2019-12-27] MEDS: SIMVASTATIN 20 MG TABLET GT SCH (20:45)
--- NOTE | 2019-12-27 21:00 | NUR ---
NOTES: g tube clogged, cranberry juice to unclogged. resume feeding with Glucerna 1.5 cc @ 40 cc./hr. complete hs care and linen changed. HOB elevated. repositioned and turn to sides.
--- NOTE | 2019-12-28 00:06 | NUR ---
NOTES: random urine ordered sent to lab, pt. asleep when checked. G tube continuous. repositioned.
[2019-12-28 00:15] VITALS: BP_SYST 131
--- NOTE | 2019-12-28 02:30 | NUR ---
NOTES: pt. sleeping when checked. condition observed.
--- NOTE | 2019-12-28 05:00 | NUR ---
NOTES: partial am/chastity cared one, pt. had BM. sacral wound dressing changed, Z john on perianal area. repositioned. pt. moans on stimulation. kept on room air. G tube formula not available, asked supervisory cbp officer. no distress.
--- NOTE | 2019-12-28 06:30 | NUR ---
CLOSING NOTES; resume g tube feed with glucerna 1.5 @ 40 cc/hr. IVF patent via rt. antecubital. pt. sleeping when checked. armstrong intact. for further care a, observation and assistance. will repeat Covid test as ordered. still on contact isolation for now. no distress, remains on room air. on fall and seizure precautions.
[2019-12-28 06:53] LABS: BASOPHILS # (AUTO) 0.1 K/uL (0.0-0.2); BASOPHILS % (AUTO) 1.1 % (0.0-2.0); EOSINOPHILS % (AUTO) 9.5 % (0.0-4.0); HEMOGLOBIN 7.8 g/dL (12.0-16.0); LYMPHOCYTES # (AUTO) 1.5 K/uL (1.0-5.5); LYMPHOCYTES % (AUTO) 14.3 % (20.5-51.5); MEAN CORPUSCULAR HEMOGLOBIN 28 pg (27-31); MEAN CORPUSCULAR HGB CONC 33 % (32-36); MEAN CORPUSCULAR VOLUME 86 fL (79.0-98.0); MONOCYTES # (AUTO) 0.5 K/uL (0.0-1.0); NEUTROPHILS # (AUTO) 7.2 K/uL (1.8-7.7); NEUTROPHILS % (AUTO) 70.1 % (40.0-70.0); PLATELET COUNT (AUTO) 377 K/uL (130-430); RED BLOOD CELL COUNT(AUTO) 2.78 MIL/uL (4.2-6.2); RED CELL DISTRIBUTION WIDTH 19.7 % (9.0-15.0); WHITE BLOOD COUNT (AUTO) 10.3 K/uL (4.8-10.8)
[2019-12-28] MEDS: MEROPENEM 500 MG in NS 50 ML IV SCH ×3 (06:54→21:08)
[2019-12-28] MEDS: LEVOTHYROXINE SODIUM 0.025 MG TABLET PO SCH (07:00)
[2019-12-28 08:00] VITALS: BP_SYST 137
[2019-12-28 08:06] LABS: ALANINE AMINOTRANSFERASE 15 U/L (12-78); ALBUMIN 1.5 g/dL (3.4-4.8); ANION GAP 8 (5-15); ASPARTATE AMINOTRANSFERASE 18 U/L (10-37); CALCIUM 9.8 mg/dL (8.4-11.0); CHLORIDE 104 mmol/L (98-107); CREATININE 1.95 mg/dL (0.55-1.30); GLUCOSE 103 mg/dL (70-99); PHOSPHORUS 4.1 mg/dL (2.7-4.5); POTASSIUM 3.7 mmol/L (3.5-5.1); SODIUM SERUM 139 mmol/L (136-145); TOTAL BILIRUBIN 0.3 mg/dL (0.0-1.0); UREA NITROGEN, BLOOD 71 mg/dL (8-21); URIC ACID 5.3 mg/dL (2.4-7.0)
[2019-12-28] MEDS: LevETIRAcetam 500 MG/5 ML UDC ORAL LIQUID GT SCH ×2 (08:34→20:21)
[2019-12-28] MEDS: ASCORBIC ACID 500 MG TABLET GT SCH (08:34)
[2019-12-28] MEDS: MULTIVITAMINS TAB 1 TABLET GT SCH (08:34)
[2019-12-28] MEDS ORDERED: NS 500 ML IV ONE (09:15)
--- NOTE | 2019-12-28 10:00 | NUR ---
WOUND CARE DONE, PT TOLERATED WELL.
[2019-12-28 12:00] VITALS: BP_SYST 141
[2019-12-28 16:23] VITALS: BP_SYST 128
--- NOTE | 2019-12-28 17:30 | NUR ---
PT SON CALLED AND WAS UPDATED WITH PATIENT'S STATUS.
--- NOTE | 2019-12-28 17:48 | NUR ---
A WOUND CARE CONSULT WAS CALLED TO [facility], WOUND CARE HEAD CONSULT. LEFT A VOICE MESSAGE. Addendum: 12/28/19 at 1755 by Rosie Gandhi MT/ WOUND CARE CONSULT WAS ALSO PAGED GATE.
--- NOTE | 2019-12-28 18:29 | NUR ---
seen pt in bed, pt is more alert and responsive and now follows command. this rn ask pt to swallow and pt was able to swallow. gave pt apple sauce and she finished 1/3 of cup. ice cream was also tried and pt finished the whole cup. pt did no have any problem swallowing. pt was given spoonful of water, pt did have some coughing. will inform dr serra if we can hold off the insertion of ngt and put pt on pureed diet with thick liquid Addendum: 12/28/19 at 1909 by Jaret Rome RN WRONG PATIENT: PLEASE DISREGARD THIS PATIENT NOTE, THIS BELONGS TO ANOTHER PATIENT.
--- NOTE | 2019-12-28 19:35 | NUR ---
Xi Slater s/w Yvrose.
--- NOTE | 2019-12-28 19:40 | NUR ---
SPOKE WITH SPOKE WITH DR. GERRI MD MADE AWARE THAT PATIENT HAS NO IVF AT THIS TIME. MD GAVE NEW ORDERS. WILL CARRY OUT
--- NOTE | 2019-12-28 19:41 | NUR ---
closing notes, pt has been stable the whole shift, no fever, no sob, pt continued to be on room air, wound care done. turned and repositioned q2 hour. wound care nurse page. endorsed to night nurse.
--- NOTE | 2019-12-28 19:42 | NUR ---
OPENING NOTE RECEIVE REPORT FROM MATHIEU TAYLOR. PATIENT AOX0, EYES OPENS WHEN CALLED BY NAME, WITHDRAWS TO PAIN. ON ROOM AIR, TOLERATING WELL, O2 SATURATION OF 100%. NO SIGNS OF RESPIRATORY DISTRESS AND DISCOMFORT NOTED. BREATHING EVEN AND UNLABORED. ON MAY CATHETER, ATTACHED AND SECURED, DRAINING BY GRAVITY. IVF INFUSING WELL. ON G-TUBE FEEDING RUNNING AT 40ML/HR, NO RESIDUAL, PATENCY NOTED. REPOSITIONED PATIENT AT THIS TIME. ISOLATION, SEIZURE AND SAFETY PRECAUTION IN PLACE. WILL CONTINUE TO MONITOR PATIENT.
[2019-12-28 20:00] VITALS: BP_SYST 147
[2019-12-28] MEDS: SIMVASTATIN 20 MG TABLET GT SCH (20:21)
[2019-12-28] MEDS: 0.45% NACL 1,000 ML IV SCH (21:08)
--- NOTE | 2019-12-28 21:08 | NUR ---
MED PASS DUE MEDICATION IS GIVEN AT THIS TIME VIA G-TUBE, G-TUBE HAS NO RESIDUAL AND PATENCY NOTED. IVF INFUSING WELL. MAY DRAINING BY GRAVITY. BED LOCKED AND IN LOWEST POSITION. SAFETY PRECAUTIONS IN PLACE. WILL CONTINUE TO MONITOR PATIENT
[2019-12-28] MEDS: INSULIN LISPRO SLIDING SCALE 100 UNITS/ML VIAL (humaLOG) SUBCUT PRN (23:24)
--- NOTE | 2019-12-28 23:56 | NUR ---
VITAL SIGNS VITAL SIGNS TAKEN AND WILL BE RECORDED. PATIENT HAS NO SIGNS OF RESPIRATORY DISTRESS AN DISCOMFORT NOTED. BREATHING EVEN AND UNLABORED. ON ROOM AIR, TOLERATING WELL. IVF AND G-TUBE INFUSING WELL. CALL LIGHT WITHIN REACH. SAFETY PRECAUTIONS IN PLACE. WILL CONTINUE TO MONITOR PATIENT
[2019-12-29 00:08] VITALS: BP_SYST 143
--- NOTE | 2019-12-29 02:12 | NUR ---
RN ROUNDS/ LIDIA CARE/ WOUND CARE LIDIA CARE AND WOUND CARE DONE AT THIS TIME, BOWEL MOVEMENT NOTED, DRESSING CHANGE IN THE SACRAL AREA. WOUND CARE DONE PER ORDER, PATIENT TOLERATED WELL. PATIENT AWAKE, AOX1, HAS NO SIGNS OF RESPIRATORY DISTRESS NOTED. CALM AND COOPERATIVE. BREATHING EVEN AND UNLABORED. ON ROOM AIR, TOLERATING WELL, 02 SATURATION OF 96%. G-TUBE AND IVF INFUSING WELL. SAFETY PRECAUTIONS IN PLACE. WILL CONTINUE TO MONITOR PATIENT
[2019-12-29] MEDS: MEROPENEM 500 MG in NS 50 ML IV SCH ×3 (05:25→23:00)
--- NOTE | 2019-12-29 05:25 | NUR ---
BS=80 BS CHECK =80, NO COVERAGE NEEDED AT THIS TIME. PATIENT AWAKE, NO SIGNS OF RESPIRATORY DISTRESS AND DISCOMFORT NOTED. BREATHING EVEN AND UNLABORED. ON ROOM AIR, TOLERATING WELL. REPOSITIONED PATIENT. CALL LIGHT WITHIN REACH. SAFETY PRECAUTIONS IN PLACE. WILL CONTINUE TO MONITOR PATIENT.
[2019-12-29] MEDS: LEVOTHYROXINE SODIUM 0.025 MG TABLET PO SCH (06:39)
--- NOTE | 2019-12-29 06:40 | NUR ---
CLOSING NOTE PATIENT AWAKE, FOLLOW ON SIMPLE COMMANDS. NO SIGNS OF RESPIRATORY DISTRESS AND DISCOMFORT NOTED. BREATHING EVEN AND UNLABORED. ON ROOM AIR TOLERATING, O2 SATURATION AT 97%. G-TUBE AND IVF INFUSING WELL. MAY CATHETER DRAINING BY GRAVITY. BED LOCKED AND IN LOWEST POSITION. SAFETY PRECAUTIONS IN PLACE. BED ALARM ON. ALL NEEDS MET THROUGHOUT THE SHIFT. WILL CONTINUE TO MONITOR PATIENT UNTIL ENDORSE TO ONCOMING SHIFT NURSE FOR CONTINUITY OF CARE.
[2019-12-29 07:08] LABS: BASOPHILS # (AUTO) 0.1 K/uL (0.0-0.2); BASOPHILS % (AUTO) 0.8 % (0.0-2.0); EOSINOPHILS % (AUTO) 8.8 % (0.0-4.0); HEMATOCRIT 24.9 % (36-48); HEMOGLOBIN 7.9 g/dL (12.0-16.0); LYMPHOCYTES # (AUTO) 1.6 K/uL (1.0-5.5); LYMPHOCYTES % (AUTO) 14.8 % (20.5-51.5); MEAN CORPUSCULAR HEMOGLOBIN 28 pg (27-31); MEAN CORPUSCULAR HGB CONC 32 % (32-36); MEAN CORPUSCULAR VOLUME 88 fL (79.0-98.0); MONOCYTES # (AUTO) 0.7 K/uL (0.0-1.0); MONOCYTES % (AUTO) 6.1 % (1.7-9.3); NEUTROPHILS # (AUTO) 7.7 K/uL (1.8-7.7); NEUTROPHILS % (AUTO) 69.5 % (40.0-70.0); PLATELET COUNT (AUTO) 389 K/uL (130-430); RED BLOOD CELL COUNT(AUTO) 2.84 MIL/uL (4.2-6.2); RED CELL DISTRIBUTION WIDTH 20.3 % (9.0-15.0); WHITE BLOOD COUNT (AUTO) 11.1 K/uL (4.8-10.8)
[2019-12-29 07:36] LABS: ALANINE AMINOTRANSFERASE 16 U/L (12-78); ALBUMIN 1.5 g/dL (3.4-4.8); ANION GAP 7 (5-15); ASPARTATE AMINOTRANSFERASE 22 U/L (10-37); CALCIUM 10.5 mg/dL (8.4-11.0); CHLORIDE 109 mmol/L (98-107); CREATININE 1.62 mg/dL (0.55-1.30); GLUCOSE 98 mg/dL (70-99); SODIUM SERUM 142 mmol/L (136-145); TOTAL BILIRUBIN 0.2 mg/dL (0.0-1.0); UREA NITROGEN, BLOOD 57 mg/dL (8-21)
[2019-12-29 08:00] VITALS: BP_SYST 158
--- NOTE | 2019-12-29 08:00 | NUR ---
PT CLEANSED AFTER DIARRHEA WITH CHARCOAL UNLOADER NAGAT, TURNED AND REPOSITIONED.
[2019-12-29] MEDS: ASCORBIC ACID 500 MG TABLET GT SCH (08:35)
[2019-12-29] MEDS: LevETIRAcetam 500 MG/5 ML UDC ORAL LIQUID GT SCH ×2 (08:35→21:00)
[2019-12-29] MEDS: MULTIVITAMINS TAB 1 TABLET GT SCH (08:35)
--- NOTE | 2019-12-29 10:30 | NUR ---
PT HAD ANOTHER BM, CLEANSED AND REPOSITIONED. WOUND DRESSING CHANGED. PT TOLERATED WELL.
[2019-12-29 12:22] VITALS: BP_SYST 159
[2019-12-29] MEDS: 0.45% NACL 1,000 ML IV SCH (13:10)
--- NOTE | 2019-12-29 16:00 | NUR ---
DR BENSON HERE AND SEEN PT, MADE AWARE OF THE PATIENT HAVING DIARRHEA. NEW ORDERS GIVEN AND CARRIED OUT.
[2019-12-29 16:15] VITALS: BP_SYST 158
[2019-12-29] MEDS ORDERED: LACTOBACILLUS RHAMNOSUS GG 1 CAP CAPSULE GT ONE ×2 (16:30→16:45)
--- NOTE | 2019-12-29 18:21 | NUR ---
END OF SHIFT NOTE, PT HAS BEEN STABLE THE WHOLE SHIFT, VITALS WNL, NO FEVER, NO SOB, PT CONTINUED TO HAVE DIARRHEA, STOOD CDIFF SAMPLE SENT AND CULTURELLE STARTED PER DR BENSON. TURNED AND REPOSITIONED Q2 HOURS, CLEANSED AFTER EVERY STOOL INCONTINENCE. WILL ENDORSE TO NIGHT NURSE.
--- NOTE | 2019-12-29 19:10 | NUR ---
OPENING NOTE RECEIVE REPORT FROM MATHIEU TAYLOR. PATIENT AWAKE, AOX0. FOLLOW ON SIMPLE COMMANDS. ON ROOM AIR, TOLERATING WELL, O2 SATURATION OF 99%. NO SIGNS OF RESPIRATORY DISTRESS AND DISCOMFORT NOTED. BREATHING EVEN AND UNLABORED. ON MAY CATHETER, ATTACHED AND SECURED, DRAINING BY GRAVITY. IVF INFUSING WELL. ON G-TUBE FEEDING RUNNING AT 40ML/HR, NO RESIDUAL, PATENCY NOTED. REPOSITIONED PATIENT AT THIS TIME. BED LOCKED AND IN LOWEST POSITION. BED ALARM ON. SEIZURE PADS IN PLACE. ISOLATION, SEIZURE AND SAFETY PRECAUTION IN PLACE. WILL CONTINUE TO MONITOR PATIENT.
[2019-12-29 20:00] VITALS: BP_SYST 151
[2019-12-29] MEDS ORDERED: LACTOBACILLUS RHAMNOSUS GG 1 CAP CAPSULE GT SCH (21:00)
[2019-12-29] MEDS: LACTOBACILLUS RHAMNOSUS GG 1 CAP CAPSULE GT SCH (21:00)
[2019-12-29] MEDS: SIMVASTATIN 20 MG TABLET GT SCH (21:00)
--- NOTE | 2019-12-29 21:00 | NUR ---
MED PASS DUE MEDICATION IS GIVEN AT THIS TIME VIA G-TUBE, G-TUBE HAS NO RESIDUAL AND PATENCY NOTED. IVF INFUSING WELL. MAY DRAINING BY GRAVITY. BED LOCKED AND IN LOWEST POSITION. SAFETY PRECAUTIONS IN PLACE. REPOSITIONED PATIENT. HEELS ELEVATED WITH PILLOW. WILL CONTINUE TO MONITOR PATIENT
[2019-12-30] VITALS: BP_SYST 140
--- NOTE | 2019-12-30 | NUR ---
VITAL SIGNS/ LIDIA CARE/ WOUND CARE VITAL SIGNS TAKEN AND WILL BE RECORDED. PATIENT HAS NO SIGNS OF RESPIRATORY DISTRESS AN DISCOMFORT NOTED. BREATHING EVEN AND UNLABORED. ON ROOM AIR, TOLERATING WELL. LIDIA CARE AND WOUND CARE DONE WITH HELP OF CHARGE NURSE, PATIENT TOLERATED WELL. IVF AND G-TUBE INFUSING WELL. CALL LIGHT WITHIN REACH. SAFETY PRECAUTIONS IN PLACE. WILL CONTINUE TO MONITOR PATIENT
--- NOTE | 2019-12-30 02:25 | NUR ---
RN ROUNDS PATIENT ASLEEP AT THIS TIME. NO SIGNS OF RESPIRATORY DISTRESS NOTED. BREATHING EVEN AND UNLABORED. ON ROOM AIR, TOLERATING WELL. G-TUBE AND IVF INFUSING WELL. SAFETY PRECAUTIONS IN PLACE. WILL CONTINUE TO MONITOR PATIENT
--- NOTE | 2019-12-30 05:41 | NUR ---
PAGED PAGED DOCTOR ESTELITA REGARDING COVID19 RESULTS
--- NOTE | 2019-12-30 06:03 | NUR ---
PAGED PAGED DOCTOR BENSON FOR ORDERS
[2019-12-30] MEDS: 0.45% NACL 1,000 ML IV SCH (06:30)
[2019-12-30] MEDS: MEROPENEM 500 MG in NS 50 ML IV SCH (06:31)
[2019-12-30] MEDS: LEVOTHYROXINE SODIUM 0.025 MG TABLET PO SCH (06:31)
[2019-12-30] MEDS: INSULIN LISPRO SLIDING SCALE 100 UNITS/ML VIAL (humaLOG) SUBCUT PRN ×2 (06:31→18:17)
--- NOTE | 2019-12-30 06:32 | NUR ---
CLOSING NOTE/ BS 99 PATIENT AWAKE, FOLLOW ON SIMPLE COMMANDS. NO SIGNS OF RESPIRATORY DISTRESS AND DISCOMFORT NOTED. BREATHING EVEN AND UNLABORED. ON ROOM AIR TOLERATING, O2 SATURATION AT 96%. BS CHECKED=99, NO COVERAGE NEEDED AT THIS TIME. G-TUBE RUNNING AT 40ML/HR. FLUSHING AND IVF INFUSING WELL. MAY CATHETER DRAINING BY GRAVITY. BED LOCKED AND IN LOWEST POSITION. BED ALARM ON. REPOSITIONED PATIENT 2HR PRN. SAFETY AND ISOLATION PRECAUTIONS IN PLACE. BED ALARM ON. ALL NEEDS MET THROUGHOUT THE SHIFT. WILL CONTINUE TO MONITOR PATIENT UNTIL ENDORSE TO ONCOMING SHIFT NURSE FOR CONTINUITY OF CARE.
--- NOTE | 2019-12-30 06:50 | NUR ---
COMMUNICATION W/ DR. KELLEY BENSON PAGED BACK AT THIS TIME, IT WAS COMMUNICATED TO HIM THAT PATIENT HAD TWO NEGATIVE COVID TESTS. DR. BENSON VERBALIZED TO D/C ISOLATION AT THIS TIME. ORDER READ BACK, VERIFIED, AND ENTERED.
--- NOTE | 2019-12-30 07:30 | NUR ---
Opening Note Report received from NOC RN. Patient in [facility], asleep at this time. Side rails up x3, bed in low and locked position, bed alarm on. Seizure precautions implemented with padding to the side rails. Per NOC RN, prophylaxis orders have not been placed. Will relay request for prophylaxis treatment to attending MD.
--- NOTE | 2019-12-30 07:34 | NUR ---
NEEDS FOR DVT PROPHYLAXIS ENDORSE TO MATHIEU FRANCIS TO CALL MD FOR THE PATIENTS NEEDS OF DVT PROPHYLAXIS.
[2019-12-30 08:00] VITALS: BP_SYST 131
--- NOTE | 2019-12-30 09:00 | NUR ---
Feeding Tube Flushed Patient's feeding tube check for residual with 30 mL residual. Primary RN flushed patient's feeding tube with 150 mL sterile water with morning medications crushed. Patient's feeding tube is patent at this time.
[2019-12-30] MEDS: LevETIRAcetam 500 MG/5 ML UDC ORAL LIQUID GT SCH ×2 (10:07→20:43)
[2019-12-30] MEDS: MULTIVITAMINS TAB 1 TABLET GT SCH (10:08)
[2019-12-30] MEDS: ASCORBIC ACID 500 MG TABLET GT SCH (10:08)
[2019-12-30] MEDS: LACTOBACILLUS RHAMNOSUS GG 1 CAP CAPSULE GT SCH ×2 (10:08→20:43)
[2019-12-30] MEDS: cefTRIAXone 1 GM in D5W 50 ML IV SCH (11:47)
--- NOTE | 2019-12-30 12:30 | NUR ---
Bowel Incontinence + diarrhea, stool is brown and liquid form. Cleansed patient with warm water and soap. Patient's mepilex dressing soiled with diarrhea. Dressing was changed to cover sacral ulcer.
[2019-12-30 12:42] VITALS: BP_SYST 117
--- NOTE | 2019-12-30 13:37 | NUR ---
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 12/29: MD notes: Multiple Decubitus Ulcer, Diarrhea, pending C.diff stool exam. COVID-19 Negative x2 12/25, 12/27 Subjective Information: Pt seen in bed, EN infusing per MD orders. Pt was awake and was able to answer simple questions. RD s/w pt's primary RN via phone who reported 50cc of residual this morning, ongoing diarrhea and RN attested to open wounds. Last episode of diarrhea was 10am today, and water flushes are provided Q6H. Richmond BID is warranted for wound healing and Banatrol TID is warranted for diarrhea. RD called 's answering service, a/w MD call back ([phone]). Current EN regimen provides 1440 kcal, 79gm protein and 89% of estimated needs and 87% of estimated protein needs. Current Diet Order/Nutrition Support: Glucerna 1.5 at 40 ml/hr, FWF 150ml via GT x4 days Pertinent Medications: Synthroid, MVI, Culturelle, Keppra, VitC, Zofran Pertinent Labs 12/28 WBC 11.1 H, BG 88 WNL, BUN 57 H, Cr 1.62 H No new weight (170#/77.11 kg) Skin Integrity Comment: Anup Scale 10. Sacral wound PI (unspecified) and 2+ non-pitting edema on Bilateral Arm per EMR. Wound Consult pending. Estimated Energy Expenditure (kcals/day) 6920-2473 kcal/day (25-30 kcal/kg adj. IBW for sepsis, acute state) Estimated Protein Required (g/day) 98-130 g protein/day (1.5-2.0 g pro/kg adj. IBW for sepsis, acute state) Estimated Fluid Required (l/day) per MD d/t acute renal failure Problem/Etiology/Signs/Symptoms Inadequate protein energy intake related to increased nutritional demands as evidenced by sepsis, sacral wound, and current EN regimen not meeting estimated nutritional needs. (*ongoing) Altered nutrition-related labs r/t renal dysfunction AEB elevated BUN and SCre labs values (*new 12/29) Expected Outcomes/Goals Monitor EN tolerance and intake w/ pt meeting at least 75% of estimated nutritional needs, labs trending WNL, normal GI function, skin integrity, and weight maintenance. Dietitian Recommendations *Recommend add Richmond BID for wound healing and Banatrol TID for diarrhea. *Continue Glucerna 1.5 at 40ml/hr (goal rate), FWF 100nl Q6H via GT Provides: 1600 kcal, 84gm protein and 1129ml free water daily. Meets: 98% of lower end of estimated calorie needs and 92% of lower end of estimated protein needs. Follow Up High Risk: F/U in 2-3days
--- NOTE | 2019-12-30 13:51 | NUR ---
Dietitian Recommendations *Recommend add Richmond BID for wound healing and Banatrol TID for diarrhea. *Continue Glucerna 1.5 at 40ml/hr (goal rate), FWF 100nl Q6H via GT Provides: 1600 kcal, 84gm protein and 1129ml free water daily. Meets: 98% of lower end of estimated calorie needs and 92% of lower end of estimated protein needs. Please see Nutrition F/U note for details. MARTHA, RD
--- NOTE | 2019-12-30 14:07 | NUR ---
Discharge Planning: DCP faxed pt referral to [facility] ([phone]) DCP to follow up.
--- NOTE | 2019-12-30 15:00 | NUR ---
Feeding Tube Flushed Feeding tube flushed with 150 ml of sterile water. Less than 10 ml residual noted.
--- NOTE | 2019-12-30 16:37 | NUR ---
PAGED PAGED OSCAR RODRIGUEZ AT [phone] SPOKE WITH GRETCHEN.
[2019-12-30 16:40] VITALS: BP_SYST 100; BP_SYST 112
--- NOTE | 2019-12-30 18:46 | NUR ---
Closing Note Patient in bed, asleep at this time. Nagel intact, feeding tube intact, peripheral IVs intact. Patient appears to be in no apparent distress. Bed in low and locked position, side rails up x3, bed alarm on. Seizure precautions implemented with padded side rails. Will handoff report to receiving NOC RN.
--- NOTE | 2019-12-30 19:25 | NUR ---
CHANGE OF SHIFT; endorsed by day shift, no acute distress. on contact isolation for C.diff. pt. on fall risk and seizure precautions. pt. room close to nurses station. pt. unable to use call light.
[2019-12-30 20:30] VITALS: BP_SYST 125
--- NOTE | 2019-12-30 20:30 | NUR ---
NOTES: pt. sleeping when received. awakened, moans on stimulation. HOB fairly elevated, on room air. VS checked. IVF infusing via left hand. both arms pretty swollen with multiple skin bruising and skin tear on rt. upper arm and covered with foam dressing. another IV site on rt. antecubital. on army officer and 100% paced, with underlying sinus rhythm. g tube and Glucerna feeding @ 40 cc/hr. keep patent and flushed. armstrong cath to osd.
[2019-12-30] MEDS: SIMVASTATIN 20 MG TABLET GT SCH (20:42)
[2019-12-30] MEDS: ENOXAPARIN SODIUM 30 MG/0.3 ML SYRINGE SUBCUT SCH (20:49)
--- NOTE | 2019-12-30 21:30 | NUR ---
NOTES: pt. had a BM, gerardo care done with INSTRUMENT SHOP SUPERVISOR. repositioned and turn to sides. checked g tube residual @ 10 cc.
--- NOTE | 2019-12-30 23:00 | NUR ---
NOTES: pt. starts yelling at intervals. kept warm with blanket. condition observed.
[2019-12-31 00:13] VITALS: BP_SYST 155
[2019-12-31] MEDS: 0.45% NACL 1,000 ML IV SCH ×2 (00:22→13:43)
--- NOTE | 2019-12-31 01:30 | NUR ---
NOTES: pt. still yelling at intervals. no distress. repositioned. cardiac pattern unchanged. bed alarm on, bed in low position.
--- NOTE | 2019-12-31 02:30 | NUR ---
NOTES: pt. settling down. condition observed. IVF continuous and g tube feed.
--- NOTE | 2019-12-31 03:30 | NUR ---
NOTES: cardiac pattern unchanged. continue to monitor.
--- NOTE | 2019-12-31 04:45 | NUR ---
NOTES: complete am, oral and gerardo care done. repositioned ,turn to sides . had small BM. sacral dressing changed, Z john on perianal area. foam dressing on rt. hip. both heels elevated with pillows. still yells on stimulation. keep HOB elevated.
[2019-12-31] MEDS: LEVOTHYROXINE SODIUM 0.025 MG TABLET PO SCH (05:57)
--- NOTE | 2019-12-31 06:00 | NUR ---
NOTES: IVF continuous at same rate. G tube feed @ 40 cc/hr with Glucerna 1.5. g tube site clean, needs frequent flushing, tends to clog. armstrong in place. repositioned. pt. more calmer. been dozing off.
--- NOTE | 2019-12-31 06:40 | NUR ---
CLOSING NOTES; pt. sleeping now, pretty calm. contact isolation for C.diff. IVF patent on left hand. G tube intact and cont. feeding. for further care, observation and assistance. bed alarm on, on fall risk and seizure precautions. will endorse to day shift. remains confused. frequent check since pt. unable to use call light.
--- NOTE | 2019-12-31 07:30 | NUR ---
OPENING NOTES: RECEIVED PATIENT FROM GAGE MAKER NURSE. PATIENT IS LAYING AWAKE IN BED. PATIENT IS AWAKE AND ALERT x1. PATIENT DENIES ANY PAIN AT THE MOMENT. PATIENT IS TOLERATING OXYGEN ON ROOM AIR WITH NO SIGNS OF DISTRESS OR SHORTNESS OF BREATH NOTED. IV SITES ARE PATENT WITH NO SIGNS OF INFILTRATION NOTED AND RUNNING FLUIDS ORDERED. G-TUBE INTACT WITH CLEAN, DRY DRESSING AND RUNNING FEEDING ORDERED. MAY CATHETER INTACT AND DRAINING BY GRAVITY. PATIENT IN STABLE CONDITION. SAFETY, FALL, ASPIRATION, SEIZURE AND CDIFF CONTACT PRECAUTIONS ARE IN PLACE. BED LOCKED IN LOWEST POSITION WITH CALL LIGHT IN REACH. WILL CONTINUE TO MONITOR PATIENT FOR ANY CHANGES.
[2019-12-31 07:41] LABS: BASOPHILS # (AUTO) 0.1 K/uL (0.0-0.2); BASOPHILS % (AUTO) 0.7 % (0.0-2.0); EOSINOPHILS % (AUTO) 7.5 % (0.0-4.0); HEMATOCRIT 24.6 % (36-48); HEMOGLOBIN 7.5 g/dL (12.0-16.0); LYMPHOCYTES % (AUTO) 15.3 % (20.5-51.5); MEAN CORPUSCULAR HEMOGLOBIN 27 pg (27-31); MEAN CORPUSCULAR HGB CONC 31 % (32-36); MEAN CORPUSCULAR VOLUME 88 fL (79.0-98.0); MONOCYTES # (AUTO) 0.8 K/uL (0.0-1.0); MONOCYTES % (AUTO) 6.2 % (1.7-9.3); NEUTROPHILS # (AUTO) 9.2 K/uL (1.8-7.7); PLATELET COUNT (AUTO) 420 K/uL (130-430); RED BLOOD CELL COUNT(AUTO) 2.78 MIL/uL (4.2-6.2); RED CELL DISTRIBUTION WIDTH 20.1 % (9.0-15.0)
[2019-12-31 07:49] LABS: ANION GAP 6 (5-15); CALCIUM 10.6 mg/dL (8.4-11.0); CHLORIDE 109 mmol/L (98-107); CREATININE 1.25 mg/dL (0.55-1.30); GLUCOSE 97 mg/dL (70-99); POTASSIUM 4.5 mmol/L (3.5-5.1); SODIUM SERUM 141 mmol/L (136-145); UREA NITROGEN, BLOOD 42 mg/dL (8-21)
[2019-12-31 08:14] VITALS: BP_SYST 108
[2019-12-31] MEDS: LevETIRAcetam 500 MG/5 ML UDC ORAL LIQUID GT SCH ×2 (08:45→20:02)
[2019-12-31] MEDS: ASCORBIC ACID 500 MG TABLET GT SCH (08:45)
[2019-12-31] MEDS: LACTOBACILLUS RHAMNOSUS GG 1 CAP CAPSULE GT SCH ×2 (08:45→20:02)
[2019-12-31] MEDS: MULTIVITAMINS TAB 1 TABLET GT SCH (08:45)
--- NOTE | 2019-12-31 10:10 | NUR ---
RN ROUNDS: PATIENT IS ASLEEP LAYING DOWN IN BED. PATIENT IS TOLERATING OXYGEN ON ROOM AIR WITH NO SIGNS OF DISTRESS OR SHORTNESS OF BREATH NOTED. IV SITE IS PATENT WITH NO SIGNS OF INFILTRATION NOTED. GTUBE INTACT AND RUNNING FEEDING ORDERED. MAY INTACT AND DRAINING BY GRAVITY. PATIENT IN STABLE CONDITION. WILL CONTINUE TO MONITOR PATIENT FOR ANY CHANGES.
[2019-12-31 10:18] VITALS: BP_SYST 108
[2019-12-31] MEDS: cefTRIAXone 1 GM in D5W 50 ML IV SCH (10:21)
--- NOTE | 2019-12-31 10:39 | NUR ---
Discharge Planning: [facility] faxed pt referral to [facility] ([phone]) DCP to follow up Addendum: 12/31/19 at 1502 by Mima Marcelino DP DCP spoke to Darrell at [facility] ([phone]) patient will go to Rm 10, DCP made CM aware.
[2019-12-31 11:16] LABS: NEUTROPHILS % (AUTO) 70.3 % (40.0-70.0)
[2019-12-31 11:29] VITALS: BP_SYST 108
--- NOTE | 2019-12-31 12:34 | NUR ---
RN ROUNDS: PATIENT IS ASLEEP LAYING DOWN IN BED. PATIENT IS TOLERATING OXYGEN ON ROOM AIR WITH NO SIGNS OF DISTRESS OR SHORTNESS OF BREATH NOTED. IV SITE IS PATENT WITH NO SIGNS OF INFILTRATION NOTED. G-TUBE INTACT AND RUNNING FEEDING. MAY INTACT AND DRAINING BY GRAVITY. PATIENT IN STABLE CONDITION. WILL CONTINUE TO MONITOR PATIENT FOR ANY CHANGES.
--- NOTE | 2019-12-31 13:54 | NUR ---
HYGIENE: PATIENT WAS CLEANED, CHANGED AND REPOSITIONED WITH THE HELP OF CLEANING ASSOCIATE. PATIENT TOLERATED IT WELL. WILL CONTINUE TO MONITOR PATIENT FOR ANY CHANGES.
--- NOTE | 2019-12-31 14:00 | NUR ---
RN ROUNDS/WOUND CARE: PATIENT IS AWAKE AND ALERT x1 LAYING DOWN IN BED. PATIENT IS TOLERATING OXYGEN ON ROOM AIR. WOUND CARE DONE WITH WOUND CARE NURSE. PATIENT WAS CLEANED, CHANGED AND REPOSITIONED. PATIENT TOLERATED IT WELL. MAY INTACT, G-TUBE INTACT. IV INTACT. PATIENT IN STABLE CONDITION. WILL CONTINUE TO MONITOR PATIENT FOR ANY CHANGES.
--- NOTE | 2019-12-31 14:00 | NUR ---
WOUND EVALUATION: Late note for 12/31/2019 at 1400 secondary to patient care. Wound Consult received from Dr. Phil Angulo Thank you Dr. Angulo for the consult. Patient received in a Riviera Bed with an Isoflex DARIAN mattress with low air loss therapy initiated, awake, slow to respond, confused. Patient is unable to turn in bed independently. Anup Score is an 11. Past Medical History: Diabetes mellitus type 2, dementia, hypercholesterolemia, Seizure disorder, Atrial Fibrillation, Asthma, history of CVA, COPD, status post pacemaker, Breast Cancer, Diabetes mellitus, Mastectomy, gallbladder surgery, Hypertension, CHF, hyperlipidemia, Osteoporosis, paroxysmal atrial fibrillation, dysphagia on G-tube feeding, Stage IV Pressure Ulcer on Sacrum. Recent Labs: WBC 13.0, RBC 2.78, hemoglobin 7.5, hematocrit 24.6, chloride 109, BUN 42, creatinine 1.25, albumin 1.5. Microbiology: Blood culture results 2 negative. Urine culture results positive for E. coli and Klebsiella pneumoniae. MRSA screen results negative. Stool culture results positive for Clostridium difficile. Intrinsic factors that delay wound healing: Asthma, COPD, Diabetes mellitus, severe hypoalbuminemia, CHF. Extrinsic factors that delay wound healing: Decreased mobility. Wound Assessment: 1. Sacral area: Stage IV pressure ulcer, present on admission. Wound bed has 30% black tissue, 30% yellow tissue, 40% dark pink tissue. Mild odor, scant yellow purulent drainage. Surrounding tissue has blanchable red erythema. 100% undermining present (1.5 cm at 12 o'clock; 1.3 cm at 3 o'clock; 0.3 cm 6 o'clock; 0.7 cm at 9 o'clock). Tunnel present at 12 o'clock measuring 2.1 cm. Surrounding tissue around 3 o'clock has a linear projection of necrotic tissue with 40% black tissue, 50% yellow tissue, 10% red tissue measuring 3.0 cm x 2.5 cm (included in total wound measurement); Surrounding tissue from around 4-6 and 7-11 o'clock has necrotic tissue with 70% black tissue 20% red tissue 10% yellow tissue (area included in total wound measurement). Wound measures 15.0 cm x 14.3 cm x 3.0 cm. Recommend: Cleanse wound with normal saline. Apply moisture barrier cream to claudia-wound. Apply Venelex ointment to wound bed. Place two 2.2 inch TenderWet dressings onto wound bed. Cover with Sacral foam dressing. Perform wound care daily, and as needed for dressing soiling or dislodgement. 2. Left Proximal Posterior Thigh: sDTI, present on admission. Site has 90% non-blanchable pink tissue, 10% brown discoloration. No odor, no drainage. Claudia-wound intact. Site measures 5.0 cm x 3.0 cm. Recommend: Cleanse site with normal saline. Apply moisture barrier cream to site. Apply Venelex ointment to any portion of site not covered by moisture barrier cream. Cover site with foam dressing. Perform site care daily, and as needed for dressing soiling or dislodgement. 3. Right Proximal Posterior Thigh: Blanchable red erythema from IAD, present on admission. Recommend: Cleanse site with normal saline. Apply moisture barrier cream to site. Perform siet care qidp for soiling. 4. Right Lateral Hip: Re-opened scar tissue, present on admission. Site has 100% pink tissue. Measures 0.5 cm x 0.8 cm. 5. Left Lateral Hip: Scar tissue, present on admission. Site has 100% pink scar tissue. Stable. Recommend: Cleanse sites with normal saline. Pat dry. Apply moisture barrier cream to sites. Cover sites with foam dressings. Perform site care daily, and as needed for dressing soiling or dislodgement. Offload sites at all times. 6. Bilateral Heels: Blanchable redness, present on admission. 7. Right Medial Malleolus: Blanchable redness, present on admission. Recommend: Cover sites with foam dressings. Perform site care daily, and as needed for dressing soiling or dislodgement. Offload sites at all times. Also recommend: Reposition patient [id number] only every 2 hours with pillow support and off-load pressure areas with pillows for pressure re-distribution. Offload, elevate and float bilateral heels with one pillow lengthwise under each extremity at all times. Offload bilateral heels, bilateral hips, and bilateral malleoli at all times. Perform skin care and monitor skin integrity Q shift. Use moisture barrier cream on buttocks and other moisture susceptible areas QID and as needed for soiling. Maintain patient on a low air-loss mattress.
[2019-12-31 14:37] LABS: CREATININE, URINE 23.4 mg/dL; MICROALBUMIN URINE RANDOM 41.9 ug/ml (NOT ESTABLISHED)
[2019-12-31 15:41] VITALS: BP_SYST 124
--- NOTE | 2019-12-31 16:46 | NUR ---
RN ROUNDS: PATIENT IS ASLEEP LAYING DOWN IN BED. PATIENT IS TOLERATING OXYGEN ON ROOM AIR WITH NO SIGNS OF DISTRESS OR SHORTNESS OF BREATH NOTED. IV SITE IS PATENT WITH NO SIGNS OF INFILTRATION NOTED. G-TUBE INTACT AND RUNNING FEEDING ORDERED. MAY CATHETER INTACT AND DRAINING BY GRAVITY. PATIENT IN STABLE CONDITION. WILL CONTINUE TO MONITOR PATIENT FOR ANY CHANGES.
[2019-12-31] MEDS ORDERED: EPOETIN ALFA 10,000 UNITS/ML VIAL SUBCUT SCH (17:00)
--- NOTE | 2019-12-31 18:27 | NUR ---
CLOSING NOTES: PATIENT IS ASLEEP LAYING DOWN IN BED. PATIENT IS TOLERATING OXYGEN ON ROOM AIR WITH NO SIGNS OF DISTRESS OR SHORTNESS OF BREATH NOTED. IV SITES ARE PATENT WITH NO SIGNS OF INFILTRATION NOTED AND RUNNING FLUIDS ORDERED. G-TUBE INTACT WITH CLEAN, DRY DRESSING AND RUNNING FEEDING ORDERED. MAY CATHETER INTACT AND DRAINING BY GRAVITY. PATIENT IN STABLE CONDITION. SAFETY, FALL, ASPIRATION, SEIZURE AND C-DIFF CONTACT PRECAUTIONS REMAINED IN PLACE THROUGHOUT THE SHIFT. BED LOCKED IN LOWEST POSITION WITH CALL LIGHT IN REACH. WILL ENDORSE PATIENT CARE TO ONCOMING TEST TUBE MAKER NURSE.
--- NOTE | 2019-12-31 19:30 | NUR ---
CHANGE OF SHIFT; endorsed by day shift, no acute distress. pt. seen by wound care nurse for wound consult. on contact isolation for C. diff. pt. unable to use call light. pt. been yelling. on fall risk and seizure precautions.
[2019-12-31 20:00] VITALS: BP_SYST 132
--- NOTE | 2019-12-31 20:00 | NUR ---
NOTES: pt. awake when checked, VS done. moves both arms theresa. left. both arms swollen and with multiple bruising, rt. skin tear on rt. upper arm. on violin restorer shows paced rhythm. pt. has foot drop, both legs/heels elevated with pillows. IV site appears infiltrated. g tube clogged, flushed but not going thru. on fall risk and seizure precautions. on contact isolation for c. diff. pt. on room air. occ. bouts of cough but un productive. pt. room close to nurse station. bed alarm, bed in low position.
[2019-12-31] MEDS: SIMVASTATIN 20 MG TABLET GT SCH (20:02)
[2019-12-31] MEDS: VANCOMYCIN HCL ORAL SOLUTION 250 MG/5 ML, 80 ML GT SCH (20:03)
[2019-12-31] MEDS: ENOXAPARIN SODIUM 30 MG/0.3 ML SYRINGE SUBCUT SCH (20:20)
--- NOTE | 2019-12-31 21:00 | NUR ---
NOTES: pt. had BM, gerardo care done, repositioned and turn to sides, been yelling on and off. on [id number] tank crewman 100% paced with underlying sinus rhythm. pt. remains confused.
--- NOTE | 2019-12-31 23:00 | NUR ---
NOTES; still trying to declog g tube with cranberry and soda.
[2020-01-01] VITALS: BP_SYST 134
--- NOTE | 2020-01-01 00:15 | NUR ---
NOTES: new IV site started by nurse Beau, resume IVF via rt. hand. able to declog g tube with sprite soda, resume feeding.
--- NOTE | 2020-01-01 02:33 | NUR ---
NOTES: pt. still awake, been yelling at intervals. condition observed.
[2020-01-01] MEDS: ACETAMINOPHEN 325 MG TABLET PO PRN ×2 (04:31→10:26)
--- NOTE | 2020-01-01 04:31 | NUR ---
NOTES: Tylenol per g tube given for generalized pain, keeps yelling and shes saying she has pain. repositioned. condition unchanged.
--- NOTE | 2020-01-01 05:20 | NUR ---
NOTES: complete am care/gerardo care done. had another BM. sacral dressing changed, came off. z john on perianal area and both heels. repositioned. H2O flush done.
[2020-01-01] MEDS: LEVOTHYROXINE SODIUM 0.025 MG TABLET PO SCH (06:44)
--- NOTE | 2020-01-01 06:52 | NUR ---
CLOSING NOTES; BS checked 87, continue on g tube feed @ 40 cc/hr. IV at same rate, site patent. pt. more calm but easily awakened. for further care and observation. fall riak and seizure precautions observed. bed alarm on. will endorse to incoming shift.
--- NOTE | 2020-01-01 07:30 | NUR ---
Opening Notes Patient is awake, alert and oriented x1. Patient is noted with episodes of confusion. No resp distress noted. Breathing is even and unlabored. Patient denies any pain at this time. Patient remains on contact isolation for CDIFF. No noted BM at this time. IV site on right hand, 20 gauge, intact. 0.45% NS @ 60 cc/hr, infusing well. No irritation or infiltration noted at IV site. GTUBE dressing intact, Glucerna 1/5 @ 40 cc/hr, infusing well. No residual noted. HOB @ 30 degrees to prevent aspiration. Patient is also noted with a cough, no reports of sputum. BP was taken on right leg. All needs met at this time. Safety and fall precautions in place. Call light within reach and close to the nursing station. Bed in lowest position, alarm on, locked. Will continue to monitor.
[2020-01-01 08:00] VITALS: BP_SYST 142
[2020-01-01] MEDS: 0.45% NACL 1,000 ML IV SCH (08:49)
[2020-01-01] MEDS: ASCORBIC ACID 500 MG TABLET GT SCH (08:49)
[2020-01-01] MEDS: MULTIVITAMINS TAB 1 TABLET GT SCH (08:49)
[2020-01-01] MEDS: LACTOBACILLUS RHAMNOSUS GG 1 CAP CAPSULE GT SCH ×2 (08:49→21:05)
[2020-01-01] MEDS: LevETIRAcetam 500 MG/5 ML UDC ORAL LIQUID GT SCH ×2 (08:50→21:05)
[2020-01-01] MEDS: VANCOMYCIN HCL ORAL SOLUTION 250 MG/5 ML, 80 ML GT SCH ×4 (08:58→21:06)
[2020-01-01] MEDS ORDERED: BALSAM PERU/CASTOR OIL 60 GM OINT...G. TP SCH (09:00)
--- NOTE | 2020-01-01 10:00 | NUR ---
Notes Patient is laying in bed, resting. Patient is yelling while in bed. Patient is c/o generalized body pain, requesting pain medicine. Repositioned with pillows. No noted BM at this time. No resp distress noted. Breathing is even and unlabored at this time. Will continue to monitor.
[2020-01-01] MEDS: cefTRIAXone 1 GM in D5W 50 ML IV SCH (10:26)
--- NOTE | 2020-01-01 10:35 | NUR ---
Tylenol 650 mg Patient c/o 12/05 general body pain. Patient is noted yelling d/t pain. Administered Tylenol 650 mg via GTUBE, tolerated well. Will continue to monitor.
--- NOTE | 2020-01-01 11:54 | NUR ---
Blood Sugar Patients blood sugar was noted at 104 mg/dL. Per sliding scale, no needed coverage at this time. Will continue to monitor.
--- NOTE | 2020-01-01 12:01 | NUR ---
Discharge Planning: DCP arrange transportation with [facility] ) Will Call to [facility] ([phone]) Rm 11. Pending ultrasound of arm. DCP took patient packet to nurse station.
--- NOTE | 2020-01-01 12:15 | NUR ---
Notes/Dressing Change/Doppler Patient is awake and laying in bed. Radiology is currently performing the doppler scan. Patient reports relief from pain from Tylenol. Noted with a BM, loose. Cleaned and left dry, repositioned with pillows. Patients coccyx and gluteal fold dressing became soiled. Replaced dressing on both areas. Cleanse with NS, pat dry, apply Venelex to wound bed, tenderwet, apply foam dressing. Patient tolerated dressing change well. No c/o pain at this time. No resp distress. Breathing is even and unlabored. Will continue to monitor and wait for Doppler results.
[2020-01-01 12:23] VITALS: BP_SYST 132
--- NOTE | 2020-01-01 13:42 | NUR ---
DOPPLER-NEGATIVE for thrombophebilitis Negative for thrombophebilits. Paged. Dr. Angulo, will ask for discharge order. Awaiting call back.
--- NOTE | 2020-01-01 15:25 | NUR ---
Paged Dr. Angulo x2 [address] Angulo for discharge order, awaiting callback.
--- NOTE | 2020-01-01 15:48 | NUR ---
Notes Patient is laying in bed, resting at this time. No distress noted. Breathing is even and unlabored. Patient is currently sleeping at this time. Will continue to monitor.
[2020-01-01 16:13] VITALS: BP_SYST 137
--- NOTE | 2020-01-01 17:30 | NUR ---
Blood Sugar Patients blood sugar was noted at 98 mg/dL. Per sliding scale, no needed coverage at this time.
--- NOTE | 2020-01-01 18:14 | NUR ---
Closing Notes Patient is awake, alert and oriented x1. Patient is noted with episodes of confusion. No resp distress noted. Breathing is even and unlabored. Patient remains on contact isolation for CDIFF. Patient is still noted with loose stool, brown in color. Patients coccyx dressing became soiled, changed dressing, tolerated well. Cleaned and left dry, repositioned with pillows. IV site on right hand, 20 gauge, intact. No infiltration or irritation noted, flushing well. 0.45% NS @ 60 cc/hr. GTUBE site intact, clean and dry, feeding: Glucerna 1.5 @ 40 cc/hr, infusing well. Patient remains on seizure precautions: padded siderails, fall precautions. Nagel catheter draining by gravity, yellow and clear urine, no odor. Patient denies any nausea or vomiting. Patient is still noted with a cough. All needs met at this time. Call light within reach. Bed in lowest position, alarm on, locked. Will continue to monitor until bedside report is given to oncoming nurse.
--- NOTE | 2020-01-01 19:15 | NUR ---
OPENING NOTES Patient is resting, yelling at times, confused. IV site patent, dressings c/d/i. Room air, HOB elevated. G tube patent, running Glucerna 1.5. Nagel catheter draining by gravity, no kinks, no loops, bag not touching the floor. C-diff contact isolation precautions to be kept. Call light within reach, bed alarm on, bed at lowest position. Patient to be discharged tonight. Seizure pads on, will continue to monitor.
--- NOTE | 2020-01-01 19:36 | NUR ---
CALLED [facility] EARLY HEAD START DIRECTOR TIME WILL BE BETWEEN 2099 TO 2129 I SPOKE WITH JUJU BULK PALLET BUILDER OF [facility]
[2020-01-01 20:22] VITALS: BP_SYST 137
--- NOTE | 2020-01-01 20:36 | NUR ---
SPOKE TO MATHIEU GUTIERREZ, MAX MORSE [phone], PROVIDED SBAR AND EXPLAINED PATIENT WILL BE GOING WITH VANCO 125 MG QID FOR 10 DAYS PER DISCHARGE ORDER, IV TO BE DISCONTINUED, PATIENT WILL BE GOING WITH A MAY CATHETER AND G TUBE INTACT. EXPLAINED THAT PATIENT HAS SACRAL WOUND STAGE FOUR, SKIN TEAR ON RIGHT UPPER ARM AND BLANCHABLE HEELS. CLEANSED WITH NORMALS SALINE AND PROVIDED FOAM DRESSINGS. C-DIFF POSITIVE WITH CONTACT ISOLATIONS. PATIENT STABLE, ROOM AIR. GOING TO ROOM 11, CROP OR LIVESTOCK TENANT FARMER TIME BY [facility] AT 2100.
--- NOTE | 2020-01-01 20:50 | NUR ---
SPOKE TO DAUGHTER, AND UPDATED THAT PATIENT WILL BE TRANSFERRING TO [facility], ROOM 11 AND ANSWERED QUESTIONS WITH UPDATE. DAUGHTER VERBALIZED UNDERSTANDING.
[2020-01-01] MEDS: SIMVASTATIN 20 MG TABLET GT SCH (21:05)
[2020-01-01] MEDS: ENOXAPARIN SODIUM 30 MG/0.3 ML SYRINGE SUBCUT SCH (21:06)
--- NOTE | 2020-01-01 21:50 | NUR ---
D/C Patient Patient given medication reconciliation form and D/C instructions. Exit Care provided. Patient unable to verbalize understanding, Patient confused, family updated. MD discussed with patient the results and treatment provided. Patient in stable condition, ID band removed. IV catheter removed, intact and dressing applied, no active bleeding. Nagel catheter draining by gravity, no kinks, no loops, bag not touching the floor. Gtube patent, intact, flushed. Patient tolerated well. Patient educated on pain management. All belongings sent with patient.
== END 2020-01-01 21:50 | DRG 871 ==
LOC: SED 09:46 → SMU 14:08 → STU 12-26 21:10
PROVIDERS: ADMIT Family Medicine; ATTEND Family Medicine
DX: A41.51 Sepsis due to Escherichia coli [E. coli] (principal); E43 Unspecified severe protein-calorie malnutrition; J18.9 Pneumonia, unspecified organism; R65.21 Severe sepsis with septic shock; N39.0 Urinary tract infection, site not specified; N17.9 Acute kidney failure, unspecified; E87.0 Hyperosmolality and hypernatremia; A04.72 Enterocolitis due to Clostridium difficile, not specified as recurrent; I13.0 Hypertensive heart and chronic kidney disease with heart failure and stage 1 through stage 4 chronic kidney disease, or unspecified chronic kidney disease; J44.0 Chronic obstructive pulmonary disease with (acute) lower respiratory infection; I42.0 Dilated cardiomyopathy; E86.0 Dehydration; Z20.828 Contact with and (suspected) exposure to other viral communicable diseases; I48.91 Unspecified atrial fibrillation; L89.309 Pressure ulcer of unspecified buttock, unspecified stage; I50.9 Heart failure, unspecified; L89.899 Pressure ulcer of other site, unspecified stage; G40.909 Epilepsy, unspecified, not intractable, without status epilepticus; E78.5 Hyperlipidemia, unspecified; E11.22 Type 2 diabetes mellitus with diabetic chronic kidney disease; N18.9 Chronic kidney disease, unspecified; G30.9 Alzheimer's disease, unspecified; F02.80 Dementia in other diseases classified elsewhere, unspecified severity, without behavioral disturbance, psychotic disturbance, mood disturbance, and anxiety; K21.9 Gastro-esophageal reflux disease without esophagitis; L89.159 Pressure ulcer of sacral region, unspecified stage; E83.52 Hypercalcemia; D63.8 Anemia in other chronic diseases classified elsewhere; E03.9 Hypothyroidism, unspecified; B96.20 Unspecified Escherichia coli [E. coli] as the cause of diseases classified elsewhere; B96.1 Klebsiella pneumoniae [K. pneumoniae] as the cause of diseases classified elsewhere; A41.89 Other specified sepsis; Y95 Nosocomial condition; Z79.899 Other long term (current) drug therapy; Z85.3 Personal history of malignant neoplasm of breast; Z95.0 Presence of cardiac pacemaker; Z86.73 Personal history of transient ischemic attack (TIA), and cerebral infarction without residual deficits; Z68.26 Body mass index [BMI] 26.0-26.9, adult
CPT/HCPCS: 36415; 71045; 76770; 80048; 80053; 81000-TC; 82043; 82570; 82570-TC; 82962; 83605; 83735-TC; 83880; 84100-TC; 84302-TC; 84443-TC; 84550-TC; 85007; 85025; 85027; 87040-TC; 87081; 87086; 87186-TC; 87230-TC; 93971; 96365; 96367; 96375; 99291; G0378; J0696; J0885; J1650; J2185; J3370; J7040; J7050; J7060; U0003-CS

== ENCOUNTER 2020-03-02 10:30 | Inpatient (IN) | payer OTHER, MEDICAID, SELFPAY ==
[~2020-03-02] VITALS: Ht 162.6 cm; Wt 64.0 kg
[2020-03-02 10:30] VITALS: BP_SYST 94
[~2020-03-02 10:30] MED LIST changes: -BALS60OI TP; -DOCU-144 GT; -FLA250 PO; -LINE600T6 PO; -POLY17PO4 GT; +ZINC220T4 GT
[2020-03-02] MEDS ORDERED: FURO-149 GT (11:04)
[2020-03-02] MEDS ORDERED: COLL100 GT (11:04)
[2020-03-02] MEDS ORDERED: ASCO250T22 GT (11:04)
[2020-03-02] MEDS ORDERED: ALBU2.5V7 HHN (11:04)
[2020-03-02] MEDS ORDERED: CAT.1 GT (11:04)
[2020-03-02] MEDS ORDERED: ZINC220T4 GT (11:04)
[2020-03-02] MEDS ORDERED: DEXT15DR27 BOTH EYES (11:04)
[2020-03-02] MEDS ORDERED: MULT-530 GT (11:04)
[2020-03-02] MEDS ORDERED: UTI-STAT GT (11:04)
[2020-03-02] MEDS ORDERED: AMIN30LI GT (11:04)
[2020-03-02] MEDS ORDERED: SIMV-43 GT (11:04)
[2020-03-02] MEDS ORDERED: LANS15CA47 GT (11:04)
[2020-03-02] MEDS ORDERED: HYDR-1189 GT (11:04)
[2020-03-02] MEDS ORDERED: LEVE100S GT (11:04)
[2020-03-02 11:12] LABS: BASOPHILS # (AUTO) 0.2 K/uL (0.0-0.2); BASOPHILS % (AUTO) 0.7 % (0.0-2.0); EOSINOPHILS # (AUTO) 0.2 K/uL (0.0-0.4); EOSINOPHILS % (AUTO) 0.5 % (0.0-4.0); HEMATOCRIT 28.1 % (36-48); HEMOGLOBIN 8.5 g/dL (12.0-16.0); LYMPHOCYTES # (AUTO) 2.2 K/uL (1.0-5.5); LYMPHOCYTES % (AUTO) 6.8 % (20.5-51.5); MEAN CORPUSCULAR HEMOGLOBIN 25 pg (27-31); MEAN CORPUSCULAR HGB CONC 31 % (32-36); MEAN CORPUSCULAR VOLUME 83 fL (79.0-98.0); MONOCYTES # (AUTO) 1.2 K/uL (0.0-1.0); MONOCYTES % (AUTO) 3.7 % (1.7-9.3); NEUTROPHILS % (AUTO) 88.3 % (40.0-70.0); PLATELET COUNT (AUTO) 442 K/uL (130-430); RED BLOOD CELL COUNT(AUTO) 3.37 MIL/uL (4.2-6.2); RED CELL DISTRIBUTION WIDTH 19.4 % (9.0-15.0)
[2020-03-02 11:15] LABS: WHITE BLOOD COUNT (AUTO) 32.8 K/uL (4.8-10.8)
[2020-03-02 11:31] LABS: ANION GAP 8 (5-15); CHLORIDE 111 mmol/L (98-107); CREATININE 3.97 mg/dL (0.55-1.30); GLUCOSE 133 mg/dL (70-99); POTASSIUM 4.4 mmol/L (3.5-5.1); SODIUM SERUM 154 mmol/L (136-145)
[2020-03-02 11:40] LABS: INR 1.1 (0.8-1.2); PROTHROMBIN TIME 10.8 SECS (9.5-12.5)
[2020-03-02 11:46] LABS: BILIRUBIN,URINE NEGATIVE (NEGATIVE); BLOOD, URINE 2+ (NEGATIVE); COLOR,URINE YELLOW (YELLOW); GLUCOSE,URINE NEGATIVE (NEGATIVE); KETONES,URINE NEGATIVE (NEGATIVE); LEUKOCYTE ESTERASE ,URINE 2+ (NEGATIVE); NITRITE, URINE NEGATIVE (NEGATIVE); PH,URINE 5.5 (5.0-8.0); PROTEIN URINE 2+ (NEGATIVE); UROBILINOGEN,URINE 0.2 (0.2-1.0)
[2020-03-02 11:52] LABS: CLARITY/URINE CLOUDY (CLEAR)
[2020-03-02 11:59] LABS: ASPARTATE AMINOTRANSFERASE 36 U/L (10-37); CALCIUM 13.6 mg/dL (8.4-11.0); TOTAL BILIRUBIN 0.5 mg/dL (0.0-1.0); UREA NITROGEN, BLOOD 130 mg/dL (8-21)
[2020-03-02 12:00] LABS: ALANINE AMINOTRANSFERASE 32 U/L (12-78); ALBUMIN 2.2 g/dL (3.4-4.8); LACTATE DEHYDROGENASE 201 U/L (81-234)
[2020-03-02] MEDS ORDERED: NACL 0.9% 1,000 ML IV ONE (12:00)
[2020-03-02] MEDS ORDERED: IPRATROPIUM/ALBUTEROL SULFATE 3 ML AMPUL.NEB (DUONEB) INH ONE (12:00)
[2020-03-02 12:01] LABS: C-REACTIVE PROTEIN QUANT 15.9 mg/dL (0-0.5)
[2020-03-02 12:05] LABS: BACTERIA,URINE MANY /HPF (None Seen); WBC,URINE 20-50 /HPF (0-3)
[2020-03-02 12:06] LABS: MUCUS,URINE 1+ /LPF (None Seen); URINE AMORPHOUS URATE 2+ /HPF (None Seen)
[2020-03-02] MEDS ORDERED: cefTRIAXone 1 GM in D5W 50 ML IV ONE (12:45)
[2020-03-02] MEDS ORDERED: NACL 0.9% 2,000 ML IV ONE (13:15)
[2020-03-02] MEDS ORDERED: ONDANSETRON HCL 4 MG/2 ML VIAL IVP PRN (14:00)
[2020-03-02] MEDS ORDERED: ACETAMINOPHEN 500 MG TABLET PO PRN (14:00)
[2020-03-02] MEDS ORDERED: cefTRIAXone 1 GM VIAL ONE (14:17)
[2020-03-02] MEDS: KCL 20 mEq in NS 1000 mL 1,000 ML IV SCH (15:00)
[2020-03-02 15:13] VITALS: BP_SYST 99
[2020-03-02] MEDS ORDERED: FLU VACC QS2020-21(65UP)/PF 0.7 ML/SYRINGE I.M. PRN (15:30)
[2020-03-02] MEDS: PIPERACILLIN/TAZOBACTAM 2.25 GM/ D5W 50 ML IV SCH ×2 (17:00)
[2020-03-02] MEDS ORDERED: 0.45% NS 500 ML IV ONE (18:00)
[2020-03-02] MEDS ORDERED: PIPERACILLIN/TAZO 3.375/DEX-IS 50 ML IV SCH (18:00)
[2020-03-02] MEDS ORDERED: VANCOMYCIN HCL 1 GM/NS PREMIX 250 ML IV ONE (18:15)
[2020-03-02 18:31] VITALS: BP_SYST 103
[2020-03-02 20:00] VITALS: BP_SYST 107
[2020-03-02] MEDS ORDERED: PAMIDRONATE DISODIUM 90 MG in NS 500 ML IV ONE (21:30)
[2020-03-02] MEDS ORDERED: IPRATROPIUM/ALBUTEROL SULFATE 3 ML AMPUL.NEB (DUONEB) INH PRN (23:15)
[2020-03-02 23:32] VITALS: BP_SYST 103
[2020-03-03] VITALS: BP_SYST 103
[2020-03-03] MEDS: PIPERACILLIN/TAZOBACTAM 2.25 GM/ D5W 50 ML IV SCH ×4 (00:02→05:59)
[2020-03-03] MEDS: KCL 20 mEq in NS 1000 mL 1,000 ML IV SCH (00:03)
[2020-03-03] MEDS ORDERED: IPRATROPIUM/ALBUTEROL SULFATE 3 ML AMPUL.NEB (DUONEB) INH SCH (01:00)
[2020-03-03 07:30] LABS: HEMATOCRIT 25.6 % (36-48); HEMOGLOBIN 7.4 g/dL (12.0-16.0); MEAN CORPUSCULAR HEMOGLOBIN 25 pg (27-31); MEAN CORPUSCULAR HGB CONC 29 % (32-36); MEAN CORPUSCULAR VOLUME 86 fL (79.0-98.0); PLATELET COUNT (AUTO) 394 K/uL (130-430); RED BLOOD CELL COUNT(AUTO) 2.97 MIL/uL (4.2-6.2); RED CELL DISTRIBUTION WIDTH 19.4 % (9.0-15.0)
[2020-03-03 07:44] LABS: ANION GAP 4 (5-15); CHLORIDE 114 mmol/L (98-107); CREATININE 3.49 mg/dL (0.55-1.30); GLUCOSE 109 mg/dL (70-99); PHOSPHORUS 6.4 mg/dL (2.7-4.5); POTASSIUM 4.1 mmol/L (3.5-5.1); SODIUM SERUM 150 mmol/L (136-145); URIC ACID 6.5 mg/dL (2.4-7.0)
[2020-03-03 07:59] LABS: UREA NITROGEN, BLOOD 113 mg/dL (8-21)
[2020-03-03] MEDS ORDERED: BALSAM PERU/CASTOR OIL 60 GM OINT...G. TP SCH ×3 (09:00)
[2020-03-03 12:51] LABS: BAND % (MANUAL) 19 % (0-6); BASOPHILS % (MANUAL) 0 % (0-2); EOSINOPHILS % (MANUAL) 3 % (0-7); LYMPHOCYTES % (MANUAL) 20 % (20-46); METAMYELOCYTES % 1 % (0-0); MONOCYTES % (MANUAL) 1 % (0-11); WBC MORPHOLOGY TOXIC GRANULATION
[2020-03-04 08:06] LABS: MICROALBUMIN URINE RANDOM 121.2 ug/mL (Not Estab.)
[2020-03-04 13:19] LABS: URINE SODIUM, RANDOM 26 mmol/L (40-220)
[2020-03-07 19:21] LABS: MICROALBUMIN/CREAT RATIO, UR Ses separate report MG/G CRE (0.0-30.0)
== END 2020-03-03 15:30 | disposition expired | DRG 871 ==
LOC: SED 10:30 → STU 13:46
PROVIDERS: ADMIT Family Medicine; ATTEND Family Medicine
DX: A41.9 Sepsis, unspecified organism (principal); J96.01 Acute respiratory failure with hypoxia; J18.9 Pneumonia, unspecified organism; G93.41 Metabolic encephalopathy; R53.2 Functional quadriplegia; E43 Unspecified severe protein-calorie malnutrition; N39.0 Urinary tract infection, site not specified; N17.9 Acute kidney failure, unspecified; J44.0 Chronic obstructive pulmonary disease with (acute) lower respiratory infection; I13.0 Hypertensive heart and chronic kidney disease with heart failure and stage 1 through stage 4 chronic kidney disease, or unspecified chronic kidney disease; E87.0 Hyperosmolality and hypernatremia; Z66 Do not resuscitate; F03.90 Unspecified dementia, unspecified severity, without behavioral disturbance, psychotic disturbance, mood disturbance, and anxiety; R13.10 Dysphagia, unspecified; Z51.5 Encounter for palliative care; N18.9 Chronic kidney disease, unspecified; E86.0 Dehydration; E83.52 Hypercalcemia; E11.22 Type 2 diabetes mellitus with diabetic chronic kidney disease; K21.9 Gastro-esophageal reflux disease without esophagitis; E78.5 Hyperlipidemia, unspecified; I50.9 Heart failure, unspecified; G40.909 Epilepsy, unspecified, not intractable, without status epilepticus; I48.0 Paroxysmal atrial fibrillation; M19.90 Unspecified osteoarthritis, unspecified site; D63.8 Anemia in other chronic diseases classified elsewhere; Z86.73 Personal history of transient ischemic attack (TIA), and cerebral infarction without residual deficits; Z95.0 Presence of cardiac pacemaker; Z68.24 Body mass index [BMI] 24.0-24.9, adult; Z85.9 Personal history of malignant neoplasm, unspecified
CPT/HCPCS: 36415; 36600; 71045; 76770; 80048; 80053; 81000-TC; 82043; 82550-TC; 82570; 82570-TC; 82728; 82803-TC; 83605; 83615-TC; 83735-TC; 83880; 83935-TC; 84100-TC; 84302-TC; 84484; 84550-TC; 85007; 85025; 85027; 85379; 85384-TC; 85610-TC; 85730-TC; 86140; 86886; 86900; 86901; 87040-TC; 87081; 87086; 93005; 94640; 94760; 96361; 96365; 99291; 99292; G0378; J0696; J2430; J2543; J3370; J3480; J7030; J7040; J7060